=== PATIENT | male | born 1955 ===

== ENCOUNTER 2018-11-10 22:48 | Inpatient (IN) | payer MEDICARE, MEDICAID ==
[2018-11-10 22:49] VITALS: BMI 24.0
--- NOTE | 2018-11-10 23:07 | C.PDOC ---
History Of Present Illness 63 year old male presents to the ED c/o worsening SOB and chest pain for the past week. Patient goes to dialysis on Saturday, Saturday and Saturday. Patient did not went to dialysis today because he was feeling SOB. Patient denies fever, chills, nausea, vomit, diarrhea, headache, palpitations, weakness, numbness. Time Seen by Provider: 11/10/18 23:06 Chief Complaint (Nursing): Shortness Of Breath History Per: Patient History/Exam Limitations: no limitations Onset/Duration Of Symptoms: Days (week) Current Symptoms Are (Timing): Still Present Initiating Event: Upper Respiratory Illness Quality: "Pain" Associated Symptoms: Chest Pain Recent travel outside of the [place]: No Additional History Per: Patient Past Medical History Reviewed: Historical Data, Nursing Documentation, Vital Signs - Medical History PMH: Anemia, CHF, HTN, Hypercholesterolemia, End Stage Renal Disease, Chronic Kidney Disease, TIA (MAYBE) Surgical History: No Surg Hx - [facility] Procedures ASSISTANCE WITH RESPIRATORY VENTILATION, <24 HRS, CPAP (09/15/15) BYPASS LEFT RADIAL ARTERY TO LOWER ARM VEIN, OPEN APPROACH (09/15/15) INSERT INFUSION DEV IN R INT JUGULAR VEIN, PERC (09/15/15) PERFORMANCE OF URINARY FILTRATION, MULTIPLE (09/15/15) PERFORMANCE OF URINARY FILTRATION, SINGLE (12/19/15) REMOVAL OF INFUSION DEVICE FROM LOWER VEIN, PERC APPROACH (09/15/15) TRANSFUSE NONAUT RED BLOOD CELLS IN PERIPH VEIN, PERC (09/15/15) ULTRASONOGRAPHY OF RIGHT JUGULAR VEINS, GUIDANCE (09/15/15) Family History: States: No Known Family Hx - Social History Hx Alcohol Use: No - Immunization History Hx Influenza Vaccination: No Review Of Systems Constitutional: Negative for: Fever, Chills Eyes: Negative for: Vision Change Cardiovascular: Positive for: Chest Pain. Negative for: Palpitations Respiratory: Positive for: Shortness of Breath. Negative for: Cough Gastrointestinal: Negative for: Nausea, Vomiting, Abdominal Pain Skin: Negative for: Rash Neurological: Negative for: Weakness, Numbness, Headache Physical Exam - Physical Exam Appears: Non-toxic, In Acute Distress Skin: Warm, Dry Head: Normacephalic Eye(s): bilateral: Normal Inspection Oral Mucosa: Moist Throat: No Erythema, No Exudate Neck: Supple Chest: Symmetrical Cardiovascular: Rhythm Regular Respiratory: Decreased Breath Sounds, Rales (diffuse), No Rhonchi, No Wheezing Gastrointestinal/Abdominal: Bowel Sounds (active), Soft, No Tenderness, No Guarding, No Rebound Back: No CVA Tenderness Extremity: Pedal Edema (bilateral), Capillary Refill (< 2 seconds) Extremity: Right: Other (dialysis graft good thrill and bruit), Bilateral: Atraumatic, Normal Color And Temperature, Normal ROM Pulses: Left Dorsalis Pedis: Normal, Right Dorsalis Pedis: Normal Neurological/Psych: Oriented x3 Gait: Steady ED Course And Treatment - Laboratory Results Result Diagrams: 11/11/18 00:31 11/11/18 01:43 ECG: Interpreted By Me, Viewed By Me ECG Rhythm: Sinus Rhythm (88), Nonspecific Changes Pulse Ox Interpretation: Normal - Radiology CXR: Interpreted by Me, Viewed By Me CXR Interpretation: Yes: Infiltrates (rll), Cardiomegaly, Other (pulm edema) Progress Note: Plan: - ABG. - EKG. - Labs. - CXR. - Aspirin 325 mg PO. - Duoneb. - Lasix 60 mg IVP. - Zosyn IV. - Blood culture. - Influenza A B. spoke with dr hoffmann(nephrology) - pt will get emergent hd Critical Care Time - Critical Care Note Total Time (in mins): 30 Documented critical care: time excludes all time spent performing seperately billable procedures. Disposition Discussed With : Franky Rayo Comment: accepted the pt on his service and took over the care at 1:57 AM Doctor Will See Patient In The: ED Counseled Patient/Family Regarding: Studies Performed, Diagnosis - Disposition Disposition: HOSPITALIZED Disposition Time: 23:06 Condition: FAIR - Clinical Impression Clinical Impression: Respiratory distress, Chest pain, ESRD needing dialysis - Scribe Statement The provider has reviewed the documentation as recorded by the Scribe Jerome Goodson All medical record entries made by the Scribe were at my direction and personally dictated by me. I have reviewed the chart and agree that the record accurately reflects my personal performance of the history, physical exam, medical decision making, and the department course for this patient. I have also personally directed, reviewed, and agree with the discharge instructions and disposition. Decision To Admit - Pt Status Changed To: Hospital Disposition Of: Inpatient - Admit Certification Admit to Inpatient:: After my assessment, the patient will require hospitalization for at least two midnights. This is because of the severity of symptoms shown, intensity of services needed, and/or the medical risk in this patient being treated as an outpatient. - InPatient: Physician Admission Certification: I certify that this patient requires 2 or more midnights of care for the following reason:: After my assessment, the patient will require hospitalization for at least two midnights. This is because of the severity of symptoms shown, intensity of services needed, and/or the medical risk in this patient being treated as an outpatient. - . Bed Request Type: Telemetry Admitting Physician: Franky Rayo Patient Diagnosis: Respiratory distress, Chest pain, ESRD needing dialysis
[2018-11-10] MEDS ORDERED: Piperacillin/Tazobact 3.375 gm 100 ML IVPB STA (23:29)
[2018-11-10] MEDS: Albuterol-Ipratrop 3 mg / 0.5 (3 ml) UD IH SCH (23:50)
[2018-11-10 23:51] LABS: ABG ALLEN TEST POS; ARTERIAL BLOOD GAS O2 SAT 81.9 % (95-98); ARTERIAL BLOOD GAS PCO2 34 mm/Hg (35-45); ARTERIAL BLOOD GAS PH 7.51 (7.35-7.45); ARTERIAL BLOOD GAS PO2 47 mm/Hg (80-100); ARTERIAL BLOOD GAS TCO2 28.1 mmol/L (22-28)
[2018-11-10] MEDS ORDERED: Piperacillin/Tazobact 3.375 gm 100 ML IVPB ONE (23:51)
[2018-11-10] MEDS ORDERED: Albuterol-Ipratrop 3 mg / 0.5 (3 ml) UD ONE (23:58)
[2018-11-11 00:41] LABS: BASO % 0.8 % (0.0-2.0); EOS # 0.3 K/uL (0.0-0.7); EOS % 4.1 % (0.0-4.0); LYMPH # 0.9 K/uL (1.0-4.3); LYMPH % 14.1 % (20.0-40.0); MEAN CELL VOLUME 81.6 fL (80.0-94.0); MEAN CORPUSCULAR HEMOGLOBIN 26.6 pg (27.0-31.0); MEAN CORPUSCULAR HGB CONC 32.6 g/dL (33.0-37.0); MEAN PLATELET VOLUME 8.7 fL (7.2-11.7); MONO # 0.6 K/uL (0.0-0.8); MONO % 9.4 % (0.0-10.0); NEUT # 4.6 K/uL (1.8-7.0); NEUT % 71.6 % (50.0-75.0); NRBC % 0.2 % (0.0-2.0); RBC 3.75 Mil/uL (4.40-5.90); RED CELL DISTRIBUTION WIDTH 20.4 % (11.5-14.5); WHITE BLOOD COUNT 6.4 K/uL (4.8-10.8)
[2018-11-11 01:15] LABS: INR 1.2; PROTHROMBIN TIME 13.6 SECONDS (9.7-12.2)
[2018-11-11 02:17] LABS: ALBUMIN 3.8 g/dL (3.5-5.0); ALT/SGPT 23 U/L (21-72); AST/SGOT 18 U/L (17-59); BLOOD UREA NITROGEN 62 mg/dL (9-20); CALCIUM 8.2 mg/dl (8.6-10.4); GFR NON-AFRICAN AMERICAN 7
[2018-11-11] MEDS ORDERED: Calcium Gluconate 4.65 MEQ in Dextrose 5% In Water 100 ML IVPB STA (02:22)
--- NOTE | 2018-11-11 03:25 | CP.PCM.HP ---
<VillalobosPenelope - Last Filed: 11/11/18 06:22> History of Present Illness - History of Present Illness History of Present Illness: CC: shortness of breath Patient is a 63 year old male with pmhx of ESRD, CHF, HTN, HLD who presents to the ED today with complaints of progressively worsening SOB. Pt reports cough and SOB first began approximately 1 week ago, and was given antibiotics for a suspected PNA by PMD with no improvement in symptoms. Pt reports today the SOB was so severe, he missed his dialysis session and called EMS to bring him in for evaluation. Pt also reports epigastric pain x1 month for which his PMD recently prescribed an antacid with improvement in symptoms. Pt denies headache, dizziness, chest pain, nausea, vomiting. Pt reports he is compliant with medications and HD as ordered. pmhx: ESRD, CHF, HTN, HLD pshx: Left UE HD graft meds: ASA, norvasc, hydralazine, coreg, crestor, ranitidine, calcitriol, renvela allergies: NKDA Sochx: 25 pack year smoking, denies alcohol/drug use Present on Admission - Present on Admission Any Indicators Present on Admission: No Review of Systems - Cardiovascular Cardiovascular: absent: Chest Pain, Palpitations - Respiratory Respiratory: Cough, Dyspnea - Gastrointestinal Gastrointestinal: Abdominal Pain (epigastric). absent: Hematemesis, Hematochezia, Nausea, Vomiting - Integumentary Integumentary: absent: Pruritus Past Patient History - Infectious Disease Hx of Infectious Diseases: None - Past Medical History & Family History Past Medical History?: Yes - Past Social History Smoking Status: Heavy Smoker > 10 Cigarettes Daily - CARDIAC Hx Congestive Heart Failure: Yes Hx Hypercholesterolemia: Yes Hx Hypertension: Yes - NEUROLOGICAL Hx Transient Ischemic Attacks (TIA): Yes (MAYBE) - HEENT Hx HEENT Problems: Yes Hx Cataracts: Yes (S/P Rt cataract surgery) - RENAL Hx Chronic Kidney Disease: Yes - HEMATOLOGICAL/ONCOLOGICAL Hx Anemia: Yes - GENITOURINARY/GYNECOLOGICAL Hx Genitourinary Disorders: Yes - SURGICAL HISTORY Hx Surgeries: Yes Hx Arteriovenous Shunt: Yes (left arm / LEFT WRIST) Hx Cataract Extraction: Yes (RT. EYE) - ANESTHESIA Hx Anesthesia: Yes Hx Anesthesia Reactions: No Hx Malignant Hyperthermia: No Meds Allergies/Adverse Reactions: Allergies Allergy/AdvReac Type Severity Reaction Status Date / Time No Known Allergies Allergy Verified 11/10/18 23:07 Physical Exam - Constitutional Appears: Non-toxic, No Acute Distress - Head Exam Head Exam: ATRAUMATIC, NORMAL INSPECTION, NORMOCEPHALIC - Eye Exam Eye Exam: EOMI, Normal appearance - ENT Exam ENT Exam: Mucous Membranes Dry, Normal Exam Additional comments: currently on BiPAP - Respiratory Exam Respiratory Exam: Rales (RLL/LLL). absent: Accessory Muscle Use, Wheezes, NORMAL BREATHING PATTERN Additional comments: tachypneic - Cardiovascular Exam Cardiovascular Exam: Tachycardia, REGULAR RHYTHM, Systolic Murmur Additional comments: 3/6 holosystolic murmur - GI/Abdominal Exam GI & Abdominal Exam: Soft. absent: Distended, Tenderness - Extremities Exam Extremities exam: Positive for: normal inspection. Negative for: calf tenderness, pedal edema - Neurological Exam Neurological exam: Alert, Oriented x3 - Psychiatric Exam Psychiatric exam: Normal Affect, Normal Mood - Skin Skin Exam: Dry, Intact, Normal Color, Warm Results - Vital Signs Recent Vital Signs: Last Vital Signs Temp 97.8 F 11/10/18 23:15 Pulse 88 11/11/18 03:15 Resp 20 11/11/18 03:15 BP 155/70 H 11/11/18 03:15 Pulse Ox 100 11/11/18 03:15 - Labs Result Diagrams: 11/11/18 00:31 11/11/18 01:43 Labs: Laboratory Results - last 24 hr 11/10/18 11/10/18 11/10/18 23:08 23:42 23:43 WBC RBC Hgb Hct MCV MCH MCHC RDW Plt Count MPV Neut % (Auto) Lymph % (Auto) [place] % (Auto) Eos % (Auto) Baso % (Auto) Neut # (Auto) Lymph # (Auto) [place] # (Auto) Eos # (Auto) Baso # (Auto) PT INR APTT Puncture Site Rr pCO2 34 L pO2 47 L HCO3 28.0 ABG pH 7.51 H ABG Total CO2 28.1 H ABG O2 Saturation 81.9 L ABG Base Excess 4.3 H Good Test Pos ABG Potassium 5.1 Sodium 135.0 Chloride 100.0 Glucose 168 H Lactate 0.9 Liter Flow 5.0 Potassium Carbon Dioxide Anion Gap BUN Creatinine Est GFR ( Amer) Est GFR (Non-Af Amer) Random Glucose Calcium Total Bilirubin AST ALT Alkaline Phosphatase Troponin I < 0.0120 NT-Pro-B Natriuret Pep 94370 H Total Protein Albumin Globulin Albumin/Globulin Ratio Arterial Blood Potassium 5.1 Influenza Typ A,B (EIA) Negative for flu a/b 11/11/18 11/11/18 11/11/18 00:31 00:31 01:43 WBC 6.4 RBC 3.75 L Hgb 10.0 L D Hct 30.6 L MCV 81.6 D MCH 26.6 L MCHC 32.6 L RDW 20.4 H Plt Count 130 MPV 8.7 Neut % (Auto) 71.6 Lymph % (Auto) 14.1 L [place] % (Auto) 9.4 Eos % (Auto) 4.1 H Baso % (Auto) 0.8 Neut # (Auto) 4.6 Lymph # (Auto) 0.9 L [place] # (Auto) 0.6 Eos # (Auto) 0.3 Baso # (Auto) 0.0 PT 13.6 H INR 1.2 APTT 41 H Puncture Site pCO2 pO2 HCO3 ABG pH ABG Total CO2 ABG O2 Saturation ABG Base Excess Good Test ABG Potassium Sodium 133 Chloride 93 L Glucose Lactate Liter Flow Potassium 6.3 H* Carbon Dioxide 30 Anion Gap 17 BUN 62 H Creatinine 7.4 H* Est GFR ( Amer) 9 Est GFR (Non-Af Amer) 7 Random Glucose 128 H Calcium 8.2 L Total Bilirubin 0.7 AST 18 ALT 23 Alkaline Phosphatase 142 H Troponin I < 0.0120 NT-Pro-B Natriuret Pep Total Protein 7.7 Albumin 3.8 Globulin 3.9 Albumin/Globulin Ratio 1.0 Arterial Blood Potassium Influenza Typ A,B (EIA) Assessment & Plan - Assessment and Plan (Free Text) Assessment: 63 year old male with pmhx of ESRD, CHF, HTN, HLD admitted for evaluation and treatment of pulmonary edema and suspected PNA Plan: Pulmonary Edema; 2/2 ESRD vs CHF vs PNA -CXR: awaiting report; appears congested with RLL consolidation and LLL pleural effusion -f/u repeat CXR s/p dialysis -IV abx, doxycycline and zosyn -f/u procalcitonin -pBNP 33,300 on admission; fluid overload -f/u cardiac echo, /6 holosystolic murmur -O2 89% on admission -given Lasix 60mg IVP in ED -currently on BiPAP, spO2 94% on FiO2 of 50% -wean to NC s/p HD as tolerated ESRD -HD this morning -continue home medications -Nephrology consult, Dr. West Hyperkalemia -K 6.3 on admission -given calcium gluconate in ED -EKG showing no acute changes -f/u repeat K s/p dialysis -monitor and treat accordingly HTN -BP WNL and stable -hold home antihypertensives, consider restarting s/p HD pending BP reads HLD -continue home crestor 10mg Ppx -VTE ppx, heparin q12 -GI ppx, protonix -renal diet Discussed with Dr. Rayo -Peneloep Villalobos, PGY-1 <Franky Rayo P - Last Filed: 11/11/18 06:36> Results - Vital Signs Recent Vital Signs: Last Vital Signs Temp 97.8 F 11/10/18 23:15 Pulse 99 H 11/11/18 04:35 Resp 20 11/11/18 03:15 BP 155/70 H 11/11/18 03:15 Pulse Ox 100 11/11/18 03:15 - Labs Result Diagrams: 11/11/18 00:31 11/11/18 01:43 Labs: Laboratory Results - last 24 hr 11/10/18 11/10/18 11/10/18 23:08 23:42 23:43 WBC RBC Hgb Hct MCV MCH MCHC RDW Plt Count MPV Neut % (Auto) Lymph % (Auto) [place] % (Auto) Eos % (Auto) Baso % (Auto) Neut # (Auto) Lymph # (Auto) [place] # (Auto) Eos # (Auto) Baso # (Auto) PT INR APTT Puncture Site Rr pCO2 34 L pO2 47 L HCO3 28.0 ABG pH 7.51 H ABG Total CO2 28.1 H ABG O2 Saturation 81.9 L ABG Base Excess 4.3 H Good Test Pos ABG Potassium 5.1 Glucose 168 H Lactate 0.9 Liter Flow 5.0 Sodium Cancelled 135.0 Potassium Cancelled Chloride Cancelled 100.0 Carbon Dioxide Cancelled Anion Gap Cancelled BUN Cancelled Creatinine Est GFR ( Amer) Cancelled Est GFR (Non-Af Amer) Cancelled Random Glucose Cancelled Calcium Cancelled Total Bilirubin Cancelled AST Cancelled ALT Cancelled Alkaline Phosphatase Cancelled Troponin I Cancelled NT-Pro-B Natriuret Pep 85295 H Total Protein Cancelled Albumin Cancelled Globulin Cancelled Albumin/Globulin Ratio Cancelled Arterial Blood Potassium 5.1 Influenza Typ A,B (EIA) Negative for flu a/b 11/11/18 11/11/18 11/11/18 00:31 00:31 01:43 WBC 6.4 RBC 3.75 L Hgb 10.0 L D Hct 30.6 L MCV 81.6 D MCH 26.6 L MCHC 32.6 L RDW 20.4 H Plt Count 130 MPV 8.7 Neut % (Auto) 71.6 Lymph % (Auto) 14.1 L [place] % (Auto) 9.4 Eos % (Auto) 4.1 H Baso % (Auto) 0.8 Neut # (Auto) 4.6 Lymph # (Auto) 0.9 L [place] # (Auto) 0.6 Eos # (Auto) 0.3 Baso # (Auto) 0.0 PT 13.6 H INR 1.2 APTT 41 H Puncture Site pCO2 pO2 HCO3 ABG pH ABG Total CO2 ABG O2 Saturation ABG Base Excess Good Test ABG Potassium Glucose Lactate Liter Flow Sodium 133 Potassium 6.3 H* Chloride 93 L Carbon Dioxide 30 Anion Gap 17 BUN 62 H Creatinine 7.4 H* Est GFR ( Amer) 9 Est GFR (Non-Af Amer) 7 Random Glucose 128 H Calcium 8.2 L Total Bilirubin 0.7 AST 18 ALT 23 Alkaline Phosphatase 142 H Troponin I < 0.0120 NT-Pro-B Natriuret Pep Total Protein 7.7 Albumin 3.8 Globulin 3.9 Albumin/Globulin Ratio 1.0 Arterial Blood Potassium Influenza Typ A,B (EIA) Attending/Attestation - Attestation I have personally seen and examined this patient.: Yes I have fully participated in the care of the patient.: Yes I have reviewed all pertinent clinical information: Yes Notes (Text): 11/11/18 06:33 * SOB * B/l infiltrates ? left effusion, euvolemic rest of the body * Mild hyperkalemia * Systolic precodial murmur more on left side suspected mitral regurg * ESRD on hd, h/o dm many yrs back, now only diet control * H/o HTN Plan * HD * Echo * CXR, +/- ct, ?CTA post hd * procacitonin * Rocephin + doxycycline emperic * GI/DVT prophylaxis * See orders for detail.
[2018-11-11] MEDS ORDERED: Piperacill/Tazo 2.25gm in Dex 2.25 GM/50 ML BAG IVPB SCH (06:00)
[2018-11-11] MEDS ORDERED: Piperacillin/Tazobact 3.375 gm 100 ML IVPB ONE (06:23)
[2018-11-11 10:20] LABS: BASO # 0.1 K/uL (0.0-0.2); BASO % 1.7 % (0.0-2.0); EOS # 0.4 K/uL (0.0-0.7); EOS % 5.2 % (0.0-4.0); HEMOGLOBIN 9.9 g/dL (12.0-18.0); LYMPH # 0.9 K/uL (1.0-4.3); LYMPH % 13.4 % (20.0-40.0); MEAN CELL VOLUME 81.1 fL (80.0-94.0); MEAN CORPUSCULAR HEMOGLOBIN 26.6 pg (27.0-31.0); MEAN CORPUSCULAR HGB CONC 32.8 g/dL (33.0-37.0); MEAN PLATELET VOLUME 7.4 fL (7.2-11.7); MONO # 0.6 K/uL (0.0-0.8); MONO % 8.9 % (0.0-10.0); NEUT # 4.8 K/uL (1.8-7.0); NEUT % 70.8 % (50.0-75.0); RBC 3.74 Mil/uL (4.40-5.90); RED CELL DISTRIBUTION WIDTH 19.5 % (11.5-14.5); WHITE BLOOD COUNT 6.8 K/uL (4.8-10.8)
[2018-11-11 10:40] LABS: CALCIUM 8.7 mg/dl (8.6-10.4)
--- NOTE | 2018-11-11 10:59 | RAD ---
Chest x-ray single frontal view HISTORY: Shortness of breath. COMPARISON: 01/02/2016 Findings: Moderate to large loculated left and small right pleural effusion. Prominent consolidative opacification in the mid to lower lung zone as well as the right lung base. Cardiomegaly. Left axillary stent in place. Degenerative changes in the spine and shoulders. Impression: Moderate to large loculated left and small right pleural effusion. Prominent consolidative opacification in the mid to lower lung zone as well as the right lung base. Cardiomegaly. Left axillary stent in place.
--- NOTE | 2018-11-11 12:07 | CARD ---
APPROVED REPORT Date of service: 11/10/2018 EKG Measurement Heart [id number] CT [id number] <Conclusion> Normal sinus rhythm T wave abnormality, consider lateral ischemia Abnormal ECG
--- NOTE | 2018-11-11 12:54 | CP.PCM.PN ---
Subjective - Date & Time of Evaluation Date of Evaluation: 11/11/18 Time of Evaluation: 13:29 - Subjective Subjective: PGY-[address] Mclean Patient seen and examined in the ED this morning while receiving STAT HD. He appeared to be breathing comfortably on BiPAP. He endorsed to me that his breathing was much better with BiPAP in place. ROS negative for chest pain, palpitations, lightheadedness, dizziness, fever, chills. Pt remains short of breath with rales on exam when re-examined on rounds s/p HD. May require another HD session today. Objective - Vital Signs/Intake and Output Vital Signs (last 24 hours): Temp Pulse Resp BP Pulse Ox 97.5 F L 88 15 168/68 H 98 11/11/18 10:00 11/11/18 10:00 11/11/18 10:00 11/11/18 11:55 11/11/18 10:00 - Medications Medications: Current Medications Amlodipine Besylate (Norvasc) 5 mg PO DAILY [facility] [place] Last Admin: 11/11/18 11:56 Dose: 5 mg Aspirin (Ecotrin) 81 mg PO DAILY [facility] [place] Last Admin: 11/11/18 12:11 Dose: Not Given Calcitriol (Rocaltrol) 0.75 mcg PO DAILY [facility] [place] Last Admin: 11/11/18 12:10 Dose: 0.75 mcg Carvedilol (Coreg) 25 mg PO BID [facility] [place] Last Admin: 11/11/18 11:55 Dose: 25 mg Heparin Sodium (Porcine) (Heparin) 5,000 units SC Q12 [facility] Last Admin: 11/11/18 11:58 Dose: 5,000 units Hydralazine HCl (Apresoline) 25 mg PO BID [facility] [place] Last Admin: 11/11/18 11:54 Dose: 25 mg Doxycycline Hyclate 100 mg/ (Sodium Chloride) 100 mls @ 100 mls/hr IVPB Q12H [facility] [place]; Protocol Last Admin: 11/11/18 06:50 Dose: 100 mls/hr Ceftriaxone Sodium 1 gm/ (Sodium Chloride) 100 mls @ 100 mls/hr IVPB DAILY [facility] [place]; Protocol Last Admin: 11/11/18 11:56 Dose: 100 mls/hr Rosuvastatin Calcium (Crestor) 10 mg PO HS [facility] [place] Sevelamer Carbonate (Renvela) 800 mg PO TID [facility] [place] Last Admin: 11/11/18 12:10 Dose: 800 mg - Labs Labs: 11/11/18 10:14 11/11/18 10:14 PT 13.6 SECONDS (9.7-12.2) H 11/11/18 00:31 INR 1.2 11/11/18 00:31 APTT 41 SECONDS (21-34) H 11/11/18 00:31 - Constitutional Appears: Non-toxic, No Acute Distress - Head Exam Head Exam: ATRAUMATIC, NORMOCEPHALIC - Eye Exam Eye Exam: EOMI, Normal appearance - ENT Exam ENT Exam: Mucous Membranes Moist - Respiratory Exam Respiratory Exam: Rales, Wheezes. absent: Accessory Muscle Use, Respiratory Distress Additional comments: On Bipap - Cardiovascular Exam Cardiovascular Exam: Tachycardia, REGULAR RHYTHM, +S1, +S2 - GI/Abdominal Exam GI & Abdominal Exam: Soft, Normal Bowel Sounds. absent: Tenderness - Extremities Exam Extremities Exam: absent: Pedal Edema, Tenderness Additional comments: HD via LUE fistula - Neurological Exam Neurological Exam: Alert, Awake, Oriented x3 - Psychiatric Exam Psychiatric exam: Normal Affect, Normal Mood - Skin Skin Exam: Dry, Intact Assessment and Plan - Assessment and Plan (Free Text) Assessment: 63 year old male with pmhx of ESRD, CHF, HTN, HLD admitted for evaluation and treatment of pulmonary edema and suspected PNA Plan: Pulmonary Edema; 2/2 ESRD vs CHF vs PNA -CXR: awaiting report; appears congested with RLL consolidation and LLL pleural effusion -f/u repeat CXR s/p dialysis -IV abx - Doxy and Zosyn --> Rochephin and Doxy -Abx --Rocephin 1 gm IVPB daily --Doxycycline 100 mg IVPB Q12 -f/u procalcitonin -pBNP 33,300 on admission; fluid overload -f/u cardiac echo, 3/6 holosystolic murmur -O2 89% on admission -given Lasix 60mg IVP in ED -currently on BiPAP, spO2 94% on FiO2 of 50% -wean to NC s/p HD as tolerated -Duonebs INH Q6 prn -CT chest w w/o contrast: f/u -Pulm consult - Dr. Walker - f/u recs -Cardio Consult - Dr. Ha - f/u recs ESRD -HD this morning. May go for 2nd round HD today as continues to have Rales on exam following HD. -continue home medications -Nephrology consult, Dr. Espinosa -HD MW Hyperkalemia -K 6.3 on admission, normalized s/p HD. -given calcium gluconate in ED -EKG with borderline peaked T waves in lateral leads. Repeating EKG. HTN -HD MWF -BP stable -hold home antihypertensives, consider restarting s/p HD pending BP reads HLD -continue home crestor 10mg Ppx -VTE ppx, heparin q12 -GI ppx, protonix -renal diet Discussed with Dr. Vinay Hopkins, PGY-1
--- NOTE | 2018-11-11 13:22 | CP.PCM.CON ---
History of Present Illness - History of Present Illness History of Present Illness: Patient is a 63 year old male with pmhx of ESRD, CHF, HTN, HLD who presents to the ED today with complaints of progressively worsening SOB. Pt reports cough and SOB first began approximately 1 week ago, and was given antibiotics for a suspected PNA by PMD with no improvement in symptoms. Pt reports today the SOB was so severe, he missed his dialysis session and called EMS to bring him in for evaluation. Pt also reports epigastric pain x1 month for which his PMD recently prescribed an antacid with improvement in symptoms. Pt denies headache, dizziness, chest pain, nausea, vomiting. Pt reports he is compliant with medications and HD as ordered. emergently dialyzed last night in Ed pmhx: ESRD, CHF, HTN, HLD pshx: Left UE HD graft meds: ASA, norvasc, hydralazine, coreg, crestor, ranitidine, calcitriol, renvela allergies: NKDA Sochx: 25 pack year smoking, denies alcohol/drug use Review of Systems - Review of Systems All systems: reviewed and no additional remarkable complaints except (as per HPI) Past Patient History - Infectious Disease Hx of Infectious Diseases: None - Past Medical History & Family History Past Medical History?: Yes - Past Social History Smoking Status: Light Smoker < 10 Cigarettes Daily - CARDIAC Hx Cardiac Disorders: Yes Hx Congestive Heart Failure: Yes Hx Hypercholesterolemia: Yes Hx Hypertension: Yes - PULMONARY Hx Respiratory Disorders: No - NEUROLOGICAL Hx Neurological Disorder: Yes Hx Transient Ischemic Attacks (TIA): Yes (MAYBE) - HEENT Hx HEENT Problems: Yes Hx Cataracts: Yes (S/P Rt cataract surgery) - RENAL Hx Chronic Kidney Disease: Yes Hx Dialysis: Yes Type of Dialysis Access: 11/11/18 - ENDOCRINE/METABOLIC Hx Endocrine Disorders: No - HEMATOLOGICAL/ONCOLOGICAL Hx Blood Disorders: Yes Hx Anemia: Yes - INTEGUMENTARY Hx Dermatological Problems: No - MUSCULOSKELETAL/RHEUMATOLOGICAL Hx Musculoskeletal Disorders: No Hx Falls: No - GASTROINTESTINAL Hx Gastrointestinal Disorders: No - GENITOURINARY/GYNECOLOGICAL Hx Genitourinary Disorders: No - PSYCHIATRIC Hx Psychophysiologic Disorder: No Hx Substance Use: No - SURGICAL HISTORY Hx Surgeries: Yes Hx Arteriovenous Shunt: Yes (left arm / LEFT WRIST) Hx Cataract Extraction: Yes (RT. EYE) - ANESTHESIA Hx Anesthesia: Yes Hx Anesthesia Reactions: No Hx Malignant Hyperthermia: No Meds Allergies/Adverse Reactions: Allergies Allergy/AdvReac Type Severity Reaction Status Date / Time No Known Allergies Allergy Verified 11/10/18 23:07 - Medications Medications: Current Medications Amlodipine Besylate (Norvasc) 5 mg PO DAILY [facility] Last Admin: 11/11/18 11:56 Dose: 5 mg Aspirin (Ecotrin) 81 mg PO DAILY [facility] Last Admin: 11/11/18 12:11 Dose: Not Given Calcitriol (Rocaltrol) 0.75 mcg PO DAILY [facility] Last Admin: 11/11/18 12:10 Dose: 0.75 mcg Carvedilol (Coreg) 25 mg PO BID [facility] Last Admin: 11/11/18 11:55 Dose: 25 mg Heparin Sodium (Porcine) (Heparin) 5,000 units SC Q12 [facility] Last Admin: 11/11/18 11:58 Dose: 5,000 units Hydralazine HCl (Apresoline) 25 mg PO BID [facility] Last Admin: 11/11/18 11:54 Dose: 25 mg Doxycycline Hyclate 100 mg/ (Sodium Chloride) 100 mls @ 100 mls/hr IVPB Q12H [facility]; Protocol Last Admin: 11/11/18 06:50 Dose: 100 mls/hr Ceftriaxone Sodium 1 gm/ (Sodium Chloride) 100 mls @ 100 mls/hr IVPB DAILY [facility]; Protocol Last Admin: 11/11/18 11:56 Dose: 100 mls/hr Rosuvastatin Calcium (Crestor) 10 mg PO HS [facility] Sevelamer Carbonate (Renvela) 800 mg PO TID [facility] Last Admin: 11/11/18 12:10 Dose: 800 mg Physical Exam - Constitutional Appears: Non-toxic, No Acute Distress, Chronically Ill - Head Exam Head Exam: NORMAL INSPECTION, NORMOCEPHALIC - Eye Exam Eye Exam: Normal appearance, PERRL - ENT Exam ENT Exam: Mucous Membranes Moist, Normal Exam - Neck Exam Neck exam: Positive for: Full Rom, Normal Inspection - Respiratory Exam Respiratory Exam: Decreased Breath Sounds, NORMAL BREATHING PATTERN Additional comments: bibasilar crackles - Cardiovascular Exam Cardiovascular Exam: REGULAR RHYTHM, RRR - GI/Abdominal Exam GI & Abdominal Exam: Distended, Normal Bowel Sounds, Soft - Extremities Exam Extremities exam: Positive for: full ROM, normal inspection - Psychiatric Exam Psychiatric exam: Normal Affect, Normal Mood - Skin Skin Exam: Intact, Warm Results - Vital Signs Recent Vital Signs: Last Vital Signs Temp 97.5 F L 11/11/18 10:00 Pulse 88 11/11/18 10:00 Resp 15 11/11/18 10:00 BP 168/68 H 11/11/18 11:55 Pulse Ox 98 11/11/18 10:00 - Labs Result Diagrams: 11/11/18 10:14 11/11/18 10:14 Labs: Laboratory Results - last 24 hr 11/10/18 11/10/18 11/10/18 23:08 23:42 23:43 WBC RBC Hgb Hct MCV MCH MCHC RDW Plt Count MPV Neut % (Auto) Lymph % (Auto) [place] % (Auto) Eos % (Auto) Baso % (Auto) Neut # (Auto) Lymph # (Auto) [place] # (Auto) Eos # (Auto) Baso # (Auto) PT INR APTT Puncture Site Rr pCO2 34 L pO2 47 L HCO3 28.0 ABG pH 7.51 H ABG Total CO2 28.1 H ABG O2 Saturation 81.9 L ABG Base Excess 4.3 H Good Test Pos ABG Potassium 5.1 Glucose 168 H Lactate 0.9 Liter Flow 5.0 Sodium Cancelled 135.0 Potassium Cancelled Chloride Cancelled 100.0 Carbon Dioxide Cancelled Anion Gap Cancelled BUN Cancelled Creatinine Est GFR ( Amer) Cancelled Est GFR (Non-Af Amer) Cancelled Random Glucose Cancelled Calcium Cancelled Total Bilirubin Cancelled AST Cancelled ALT Cancelled Alkaline Phosphatase Cancelled Troponin I Cancelled NT-Pro-B Natriuret Pep 84347 H Total Protein Cancelled Albumin Cancelled Globulin Cancelled Albumin/Globulin Ratio Cancelled Procalcitonin Arterial Blood Potassium 5.1 Influenza Typ A,B (EIA) Negative for flu a/b 11/11/18 11/11/18 11/11/18 00:31 00:31 01:43 WBC 6.4 RBC 3.75 L Hgb 10.0 L D Hct 30.6 L MCV 81.6 D MCH 26.6 L MCHC 32.6 L RDW 20.4 H Plt Count 130 MPV 8.7 Neut % (Auto) 71.6 Lymph % (Auto) 14.1 L [place] % (Auto) 9.4 Eos % (Auto) 4.1 H Baso % (Auto) 0.8 Neut # (Auto) 4.6 Lymph # (Auto) 0.9 L [place] # (Auto) 0.6 Eos # (Auto) 0.3 Baso # (Auto) 0.0 PT 13.6 H INR 1.2 APTT 41 H Puncture Site pCO2 pO2 HCO3 ABG pH ABG Total CO2 ABG O2 Saturation ABG Base Excess Good Test ABG Potassium Glucose Lactate Liter Flow Sodium 133 Potassium 6.3 H* Chloride 93 L Carbon Dioxide 30 Anion Gap 17 BUN 62 H Creatinine 7.4 H* Est GFR ( Amer) 9 Est GFR (Non-Af Amer) 7 Random Glucose 128 H Calcium 8.2 L Total Bilirubin 0.7 AST 18 ALT 23 Alkaline Phosphatase 142 H Troponin I < 0.0120 NT-Pro-B Natriuret Pep Total Protein 7.7 Albumin 3.8 Globulin 3.9 Albumin/Globulin Ratio 1.0 Procalcitonin Arterial Blood Potassium Influenza Typ A,B (EIA) 11/11/18 11/11/18 11/11/18 10:14 10:14 10:14 WBC 6.8 RBC 3.74 L Hgb 9.9 L Hct 30.3 L MCV 81.1 MCH 26.6 L MCHC 32.8 L RDW 19.5 H Plt Count 137 MPV 7.4 Neut % (Auto) 70.8 Lymph % (Auto) 13.4 L [place] % (Auto) 8.9 Eos % (Auto) 5.2 H Baso % (Auto) 1.7 Neut # (Auto) 4.8 Lymph # (Auto) 0.9 L [place] # (Auto) 0.6 Eos # (Auto) 0.4 Baso # (Auto) 0.1 PT INR APTT Puncture Site pCO2 pO2 HCO3 ABG pH ABG Total CO2 ABG O2 Saturation ABG Base Excess Good Test ABG Potassium Glucose Lactate Liter Flow Sodium 136 Potassium 3.7 Chloride 97 L Carbon Dioxide 32 H Anion Gap 12 BUN 23 H Creatinine 3.3 H Est GFR ( Amer) 23 Est GFR (Non-Af Amer) 19 Random Glucose 91 D Calcium 8.7 Total Bilirubin AST ALT Alkaline Phosphatase Troponin I NT-Pro-B Natriuret Pep Total Protein Albumin Globulin Albumin/Globulin Ratio Procalcitonin 0.37 Arterial Blood Potassium Influenza Typ A,B (EIA) Assessment & Plan - Assessment and Plan (Free Text) Assessment: esrd fluid overload anemia htn pneumonia w/ loculated lt effusion plan: maintain hd, next treatment tomorrow and mwf, aggressive uf as tolerated antibiotics, cardiac evaluation fluid restriction advised
--- NOTE | 2018-11-11 13:41 | RAD ---
Chest x-ray single frontal view History: Dialysis. Comparison: 11/10/2018 Findings: Left axillary stent in place. Moderate loculated left pleural effusion. Dense consolidative opacification in mid to lower lung zones bilaterally. Moderate venous congestion. Cardiomegaly. Degenerative changes in the spine and shoulders. Biapical pleural thickening with upper lobe granulomatous changes. Impression: Left axillary stent in place. Moderate loculated left pleural effusion. Dense consolidative opacification in mid to lower lung zones bilaterally. Moderate venous congestion. Cardiomegaly. Degenerative changes in the spine and shoulders. Biapical pleural thickening with upper lobe granulomatous changes.
[2018-11-11] MEDS ORDERED: Albuterol-Ipratrop 3 mg / 0.5 (3 ml) UD INH STA (15:09)
--- NOTE | 2018-11-11 18:03 | CT ---
Date of service: 11/11/2018 PROCEDURE: CT Chest without contrast HISTORY: Effusion versus pneumonia. COMPARISON: Comparison made with chest radiograph dated 11/11/2018 at 10:27 a.m.. TECHNIQUE: Contiguous axial images were obtained through the chest without intravenous contrast enhancement. Sagittal and coronal reconstructions were performed. Radiation dose: Total exam DLP = 508.99 mGy-cm. This CT exam was performed using one or more of the following dose reduction techniques: Automated exposure control, adjustment of the mA and/or kV according to patient size, and/or use of iterative reconstruction technique. FINDINGS: LUNGS: There are moderate-sized bilateral effusions and bibasilar atelectasis left greater than right.. Diffuse ground-glass opacities seen predominately in the lower lung zones with present with septal thickening. There also more discrete scattered opacities in the upper lobes as well. Findings collectively are consistent with pulmonary edema/CHF however superimposed pneumonia cannot be completely excluded. MEDIASTINUM: Heart is enlarged. There is a small to medium-sized pericardial effusion. Ascending thoracic aorta measures approximately 3.24 cm. Descending thoracic aorta measures approximately 2.4 cm. Mild aortic atherosclerotic calcification.. Pulmonary trunk is dilated measuring approximately 3.6 cm. Rule out underlying pulmonary arterial hypertension. There are multiple small-enlarged mediastinal lymph nodes present, 1 of the largest in the right paratracheal region measuring approximately 2.1 cm. Another adjacent lymph node in the left paratracheal region measures approximately 15 mm. Subcarinal adenopathy and/or mass measuring approximately 2.9 cm. Evaluation for hilar adenopathy is somewhat limited due to the lack of circulating intravenous contrast material as well as bilateral effusions and bilateral lower lobe atelectatic changes left greater than right. Trachea is midline and patent with no large central endoluminal lesions. Tiny hiatal hernia. PLEURA: As above. No pneumothorax. BONES: Multilevel degenerative spondylosis of the thoracic and upper lumbar spine. UPPER ABDOMEN: Grossly unremarkable. OTHER FINDINGS: Moderate changes of bilateral gynecomastia. IMPRESSION: Cardiomegaly with small to medium-sized pericardial effusion. There are bilateral effusions and bibasilar atelectasis left greater than right. Hazy ground-glass opacity seen in the lower lobes with more discrete nodular opacity scattered throughout the upper lobes. Septal thickening. Collectively the findings are consistent with pulmonary edema/CHF however the possibility of superimposed pneumonia less likely though not completely excluded
--- NOTE | 2018-11-11 19:49 | CARD ---
APPROVED REPORT Date of service: 11/11/2018 EXAM: Two-dimensional and M-mode echocardiogram with Doppler and color Doppler. INDICATION Chest pressure Murmur Syncope Congestive Heart Failure RISK FACTORS Hypertension Diabetes 2D DIMENSIONS IVSd1.2 (0.7-1.1cm)LVDd4.7 (3.9-5.9cm) LVOT Diameter2.2 (1.8-2.4cm)PWd1.2 (0.7-1.1cm) LA Ywvazj68 (18-58mL)LVDs2.9 (2.5-4.0cm) FS (%) 38.8 %LVEF (%)69.2 (>50%) LVEF (Giron's)65 % M-Mode DIMENSIONS Left Atrium (MM)4.16 (2.5-4.0cm)IVSd1.25 (0.7-1.1cm) Aortic Root3.41 (2.2-3.7cm)LVDd5.32 (4.0-5.6cm) Aortic Cusp Exc.1.03 (1.5-2.0cm)PWd1.01 (0.7-1.1cm) FS (%) 43 %LVDs3.02 (2.0-3.8cm) LVEF (%)74 (>50%) Aortic Valve AoV Peak Cvldrnye707.6cm/sAoV VTI64.7cmAO Peak GR.38mmHg LVOT Peak Nucpmxhy007.2cm/sLVOT VTI23.70cmAO Mean GR.22mmHg ULISSES (VMAX)1.91xe0EGH (VTI)1.40cm2 Mitral Valve MV E Lbwrwaml734.6cm/sMV A Oinrzwjk606.5cm/sE/A ratio1.2 TDI Lateral E' Peak V7.64cm/sMedial E' Peak V8.29cm/sE/Lateral E'20.5 E/Medial E'18.9 Tricuspid Valve TR Peak Paxzgcqf444hw/sTR Peak Gr.19xzQnUISM25soUw LEFT VENTRICLE The left ventricle is normal size. There is mild concentric left ventricular hypertrophy. The Ejection Fraction is 65-70. There is normal LV segmental wall motion. The left atrial pressure is mildly elevated. RIGHT VENTRICLE The right ventricle is normal size. The right ventricular systolic function is normal. ATRIA The left atrium is mildly dilated. The right atrium size is normal. The interatrial septum is intact with no evidence for an atrial septal defect. AORTIC VALVE The aortic valve is tri-cuspid. The aortic valve is moderately calcified. No aortic regurgitation is present. There is mild valvular aortic stenosis. Calculated aortic valve area is 38 cm2 with maximum pressure gradient of 21 mmHg and mean pressure gradient of 1.4 mmHg. MITRAL VALVE The mitral valve is normal in structure. Mitral regurgitation is mild. TRICUSPID VALVE The tricuspid valve is normal in structure. There is mild to moderate tricuspid regurgitation. Right ventricular systolic pressure is estimated at 52 mmHg. There is moderate pulmonary hypertension. PULMONIC VALVE The pulmonary valve is normal in structure. GREAT VESSELS The aortic root is normal size. The aortic root displays mild sclerocalcific changes of the aortic root. ivc is mildly dilated. PERICARDIAL EFFUSION small posterior pericardial effusion noted,also small one behind ra.no tamponade. <Conclusion> The left ventricle is normal size. The Ejection Fraction is 65-70%. The left atrial pressure is mildly elevated. There is mild concentric left ventricular hypertrophy. The left atrium is mildly dilated. The aortic valve is tri-cuspid. The aortic valve is moderately calcified. There is mild valvular aortic stenosis. Calculated aortic valve area is 38 cm2 with maximum pressure gradient of 21 mmHg and mean pressure gradient of 1.4 mmHg. Mitral regurgitation is mild. There is mild to moderate tricuspid regurgitation. Right ventricular systolic pressure is estimated at 52 mmHg. There is moderate pulmonary hypertension. The aortic root is normal size. The aortic root displays mild sclerocalcific changes of the aortic root. ivc is mildly dilated. small posterior pericardial effusion noted,also small one behind ra.no tamponade.
[2018-11-11] MEDS: Albuterol-Ipratrop 3 mg / 0.5 (3 ml) UD INH PRN (20:53)
[2018-11-12] MEDS: Albuterol-Ipratrop 3 mg / 0.5 (3 ml) UD INH PRN ×2 (00:55→07:50)
[2018-11-12] MEDS ORDERED: Labetalol 5mg/ml (4ml) IVP STA (09:28)
--- NOTE | 2018-11-12 13:13 | CP.PCM.PN ---
Subjective - Date & Time of Evaluation Date of Evaluation: 11/12/18 Time of Evaluation: 13:10 - Subjective Subjective: seen on dialysis this AM UF goal 3000ml much less dyspneic now no other complaint Objective - Vital Signs/Intake and Output Vital Signs (last 24 hours): Temp Pulse Resp BP Pulse Ox 98.1 F 102 H 26 H 189/99 H 93 L 11/12/18 09:15 11/12/18 09:15 11/12/18 09:15 11/12/18 11:45 11/12/18 09:15 - Medications Medications: Current Medications Albuterol/Ipratropium (Duoneb 3 Mg/0.5 Mg (3 Ml) Ud) 3 ml INH RQ6 PRN PRN Reason: Shortness of Breath Last Admin: 11/12/18 07:50 Dose: 3 ml Amlodipine Besylate (Norvasc) 5 mg PO DAILY [facility] Last Admin: 11/11/18 11:56 Dose: 5 mg Aspirin (Ecotrin) 81 mg PO DAILY [facility] Last Admin: 11/11/18 12:11 Dose: Not Given Calcitriol (Rocaltrol) 0.75 mcg PO DAILY [facility] Last Admin: 11/11/18 12:10 Dose: 0.75 mcg Carvedilol (Coreg) 25 mg PO BID [facility] Last Admin: 11/12/18 11:25 Dose: 25 mg Heparin Sodium (Porcine) (Heparin) 5,000 units SC Q12 [facility] Last Admin: 11/11/18 21:49 Dose: 5,000 units Hydralazine HCl (Apresoline) 25 mg PO BID [facility] Last Admin: 11/12/18 11:24 Dose: 25 mg Doxycycline Hyclate 100 mg/ (Sodium Chloride) 100 mls @ 100 mls/hr IVPB Q12H [facility]; Protocol Last Admin: 11/12/18 05:13 Dose: 100 mls/hr Ceftriaxone Sodium 1 gm/ (Sodium Chloride) 100 mls @ 100 mls/hr IVPB DAILY [facility]; Protocol Last Admin: 11/11/18 11:56 Dose: 100 mls/hr Rosuvastatin Calcium (Crestor) 10 mg PO HS [facility] Last Admin: 11/11/18 21:49 Dose: 10 mg Sevelamer Carbonate (Renvela) 800 mg PO TIDCC [facility] Last Admin: 11/12/18 08:15 Dose: 800 mg - Labs Labs: 11/11/18 10:14 11/11/18 10:14 PT 13.6 SECONDS (9.7-12.2) H 11/11/18 00:31 INR 1.2 11/11/18 00:31 APTT 41 SECONDS (21-34) H 11/11/18 00:31 - Constitutional Appears: No Acute Distress, Chronically Ill - Head Exam Head Exam: ATRAUMATIC, NORMAL INSPECTION - Eye Exam Eye Exam: EOMI, Normal appearance - Neck Exam Neck Exam: Normal Inspection. absent: Tenderness - Respiratory Exam Respiratory Exam: Rhonchi, NORMAL BREATHING PATTERN - Cardiovascular Exam Cardiovascular Exam: REGULAR RHYTHM, +S1 - GI/Abdominal Exam GI & Abdominal Exam: Soft. absent: Tenderness - Extremities Exam Extremities Exam: Normal Inspection. 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
[2018-11-12 13:14] LABS: BASO # 0.1 K/uL (0.0-0.2); BASO % 0.8 % (0.0-2.0); EOS % 0.4 % (0.0-4.0); HEMOGLOBIN 10.1 g/dL (12.0-18.0); LYMPH % 11.1 % (20.0-40.0); MEAN CELL VOLUME 81.7 fL (80.0-94.0); MEAN CORPUSCULAR HEMOGLOBIN 26.6 pg (27.0-31.0); MEAN CORPUSCULAR HGB CONC 32.6 g/dL (33.0-37.0); MEAN PLATELET VOLUME 8.3 fL (7.2-11.7); MONO # 0.9 K/uL (0.0-0.8); MONO % 10.3 % (0.0-10.0); NEUT % 77.4 % (50.0-75.0); NRBC % 0.1 % (0.0-2.0); RBC 3.79 Mil/uL (4.40-5.90)
--- NOTE | 2018-11-12 13:24 | CP.PCM.PN ---
Subjective - Date & Time of Evaluation Date of Evaluation: 11/12/18 Time of Evaluation: 13:26 - Subjective Subjective: PGY-[address] Mclean Patient seen and examined at bedside. He did appear to be in mild respiratory distress this morning. Patient was not wearing his BiPap on presentation Objective - Vital Signs/Intake and Output Vital Signs (last 24 hours): Temp Pulse Resp BP Pulse Ox 98.1 F 102 H 26 H 189/99 H 93 L 11/12/18 09:15 11/12/18 09:15 11/12/18 09:15 11/12/18 11:45 11/12/18 09:15 - Medications Medications: Current Medications Albuterol/Ipratropium (Duoneb 3 Mg/0.5 Mg (3 Ml) Ud) 3 ml INH RQ6 PRN PRN Reason: Shortness of Breath Last Admin: 11/12/18 07:50 Dose: 3 ml Amlodipine Besylate (Norvasc) 5 mg PO DAILY [facility] Last Admin: 11/11/18 11:56 Dose: 5 mg Aspirin (Ecotrin) 81 mg PO DAILY [facility] Last Admin: 11/11/18 12:11 Dose: Not Given Calcitriol (Rocaltrol) 0.75 mcg PO DAILY [facility] Last Admin: 11/11/18 12:10 Dose: 0.75 mcg Carvedilol (Coreg) 25 mg PO BID [facility] Last Admin: 11/12/18 11:25 Dose: 25 mg Heparin Sodium (Porcine) (Heparin) 5,000 units SC Q12 [facility] Last Admin: 11/11/18 21:49 Dose: 5,000 units Hydralazine HCl (Apresoline) 25 mg PO BID [facility] Last Admin: 11/12/18 11:24 Dose: 25 mg Doxycycline Hyclate 100 mg/ (Sodium Chloride) 100 mls @ 100 mls/hr IVPB Q12H [facility]; Protocol Last Admin: 11/12/18 05:13 Dose: 100 mls/hr Ceftriaxone Sodium 1 gm/ (Sodium Chloride) 100 mls @ 100 mls/hr IVPB DAILY [facility]; Protocol Last Admin: 11/11/18 11:56 Dose: 100 mls/hr Rosuvastatin Calcium (Crestor) 10 mg PO HS [facility] Last Admin: 11/11/18 21:49 Dose: 10 mg Sevelamer Carbonate (Renvela) 800 mg PO TIDCC [facility] Last Admin: 11/12/18 08:15 Dose: 800 mg - Labs Labs: 11/11/18 10:14 11/11/18 10:14 PT 13.6 SECONDS (9.7-12.2) H 11/11/18 00:31 INR 1.2 11/11/18 00:31 APTT 41 SECONDS (21-34) H 11/11/18 00:31 - Constitutional Appears: Non-toxic - Head Exam Head Exam: NORMAL INSPECTION - Eye Exam Eye Exam: EOMI - ENT Exam ENT Exam: Mucous Membranes Moist - Neck Exam Neck Exam: Full ROM - Respiratory Exam Respiratory Exam: Rales (Diffuse rales) Additional comments: On bipap - Cardiovascular Exam Cardiovascular Exam: REGULAR RHYTHM, +S1, +S2 - GI/Abdominal Exam GI & Abdominal Exam: Soft, Normal Bowel Sounds. absent: Tenderness - Extremities Exam Extremities Exam: absent: Pedal Edema, Tenderness - Neurological Exam Neurological Exam: Alert, Awake, Oriented x3 - Psychiatric Exam Psychiatric exam: Normal Affect, Normal Mood - Skin Skin Exam: Dry, Intact Assessment and Plan - Assessment and Plan (Free Text) Assessment: 63 year old male with pmhx of ESRD, CHF, HTN, HLD admitted for evaluation and treatment of pulmonary edema and suspected PNA Plan: Pulmonary Edema; 2/2 ESRD vs CHF vs PNA -CXR Initial 11/10: Moderate to large loculated left and small right pleural effusion. Prominent consolidative opacification in the mid to lower lung zone as well as the right lung base. Cardiomegaly. Left axillary stent in place. -repeat CXR (11/11) s/p dialysis: Left axillary stent in place. Moderate loculated left pleural effusion. Dense consolidative opacification in mid to lower lung zones bilaterally. Moderate venous congestion. Cardiomegaly. --> Appears minimal improvement. Degenerative changes in the spine and shoulders. Biapical pleural thickening with upper lobe granulomatous changes. -IV abx - Doxy and Zosyn --> Rochephin and Doxy -Abx --Rocephin 1 gm IVPB daily --Doxycycline 100 mg IVPB Q12 -Procalcitonin WNL -pBNP 33,300 on admission; fluid overload -f/u cardiac echo, 01/07 holosystolic murmur -O2 89% on admission -given Lasix 60mg IVP in ED -currently on BiPAP, spO2 94% on FiO2 of 50% -wean to NC s/p HD as tolerated -Duonebs INH Q6 prn -CT chest w w/o contrast 11/11: Cardiomegaly with small to medium-sized pericardial effusion. There are bilateral effusions and bibasilar atelectasis left greater than right. Hazy ground-glass opacity seen in the lower lobes with more discrete nodular opacity scattered throughout the upper lobes. Septal thickening. Collectively the findings are consistent with pulmonary edema/CHF however the possibility of superimposed pneumonia less likely though not completely excluded -Pulm consult - Dr. Walker - f/u recs -Cardio Consult - Dr. Ha - f/u recs ESRD -HD MWF. HD this morning, tolerated well. -continue home medications -Nephrology consult, Dr. Espinosa Hyperkalemia -K 6.3 on admission, normalized s/p HD. -given calcium gluconate in ED -EKG with borderline peaked T waves in lateral leads. Repeating EKG HTN -HD MWF -BP stable -hold home antihypertensives, consider restarting s/p HD pending BP reads HLD -continue home crestor 10mg Ppx -VTE ppx, heparin q12 -GI ppx, protonix -renal diet Discussed with Dr. Vinay Hopkins, PGY-1
[2018-11-12] MEDS: MethylPREDNISolone 40 mg Vial IVP SCH (16:18)
[2018-11-12] MEDS: Albuterol 0.083% Inhal Sol (2.5 mg/3 mL) UD INH SCH ×2 (16:20→20:49)
--- NOTE | 2018-11-12 16:23 | CP.PCM.PN ---
Subjective - Date & Time of Evaluation Date of Evaluation: 11/12/18 Time of Evaluation: 16:18 - Subjective Subjective: PGY-[address] Mclean Patient seen and examined at bedside. Overnight patient did have episode of shortness of breath, but duoneb treatment had not yet been given - once given treatment, patient improved. This mornign again patient, patient was short of breath requiring breathing treatment. Duoneb made Q6 scheduled. Patient was also c/o chest pain so we are repeating ROMIs. However, on rounds patient was doing much better- not having any SOB or chest pain. Denies dizziness, abdominal pain, n/v/d. Objective - Vital Signs/Intake and Output Vital Signs (last 24 hours): Temp Pulse Resp BP Pulse Ox 98.6 F 105 H 20 193/82 H 95 11/12/18 15:51 11/12/18 15:51 11/12/18 15:51 11/12/18 15:51 11/12/18 15:51 - Medications Medications: Current Medications Albuterol Sulfate (Albuterol 0.083% Inhal Louisa (2.5 Mg/3 Ml) Ud) 2.5 mg INH RQ4 [facility] Amlodipine Besylate (Norvasc) 5 mg PO DAILY [facility] Last Admin: 11/12/18 10:00 Dose: Not Given Aspirin (Ecotrin) 81 mg PO DAILY [facility] Last Admin: 11/12/18 10:00 Dose: Not Given Calcitriol (Rocaltrol) 0.75 mcg PO DAILY [facility] Last Admin: 11/12/18 10:00 Dose: Not Given Carvedilol (Coreg) 25 mg PO BID [facility] Last Admin: 11/12/18 11:25 Dose: 25 mg Heparin Sodium (Porcine) (Heparin) 5,000 units SC Q12 [facility] Last Admin: 11/12/18 10:00 Dose: Not Given Hydralazine HCl (Apresoline) 25 mg PO QID [facility] Doxycycline Hyclate 100 mg/ (Sodium Chloride) 100 mls @ 100 mls/hr IVPB Q12H [facility]; Protocol Last Admin: 11/12/18 05:13 Dose: 100 mls/hr Ceftriaxone Sodium 1 gm/ (Sodium Chloride) 100 mls @ 100 mls/hr IVPB DAILY [facility]; Protocol Last Admin: 11/12/18 10:00 Dose: Not Given Methylprednisolone (Solu-Medrol) 40 mg IVP Q8H [facility] Rosuvastatin Calcium (Crestor) 10 mg PO HS [facility] Last Admin: 11/11/18 21:49 Dose: 10 mg Sevelamer Carbonate (Renvela) 800 mg PO TIDCC [facility] Last Admin: 11/12/18 14:30 Dose: 800 mg - Labs Labs: 11/12/18 13:04 11/11/18 10:14 PT 13.6 SECONDS (9.7-12.2) H 11/11/18 00:31 INR 1.2 11/11/18 00:31 APTT 41 SECONDS (21-34) H 11/11/18 00:31 - Constitutional Appears: Non-toxic, No Acute Distress - Head Exam Head Exam: ATRAUMATIC, NORMOCEPHALIC - Eye Exam Eye Exam: EOMI - ENT Exam ENT Exam: Mucous Membranes Moist - Respiratory Exam Respiratory Exam: Rales Additional comments: On NRB - Cardiovascular Exam Cardiovascular Exam: REGULAR RHYTHM, +S1, +S2 - GI/Abdominal Exam GI & Abdominal Exam: Soft, Normal Bowel Sounds. absent: Tenderness - Extremities Exam Extremities Exam: Normal Inspection. absent: Pedal Edema, Tenderness - Neurological Exam Neurological Exam: Alert, Awake, Oriented x3 - Psychiatric Exam Psychiatric exam: Normal Affect, Normal Mood - Skin Skin Exam: Dry, Intact Assessment and Plan - Assessment and Plan (Free Text) Assessment: 63 year old male with pmhx of ESRD, CHF, HTN, HLD admitted for evaluation and treatment of pulmonary edema and suspected PNA Plan: Pulmonary Edema; 2/2 ESRD vs Diastolic CHF vs PNA -CXR Initial 11/10: Moderate to large loculated left and small right pleural effusion. Prominent consolidative opacification in the mid to lower lung zone as well as the right lung base. Cardiomegaly. Left axillary stent in place. -repeat CXR (11/11) s/p dialysis: Left axillary stent in place. Moderate loculated left pleural effusion. Dense consolidative opacification in mid to lower lung zones bilaterally. Moderate venous congestion. Cardiomegaly. --> Appears minimal improvement. Degenerative changes in the spine and shoulders. Biapical pleural thickening with upper lobe granulomatous changes. -IV abx - Doxy and Zosyn --> Rochephin and Doxy -Abx --Rocephin 1 gm IVPB daily --Doxycycline 100 mg IVPB Q12 -Procalcitonin WNL -pBNP 33,300 on admission; fluid overload -f/u cardiac echo, 01/07 holosystolic murmur -O2 89% on admission -given Lasix 60mg IVP in ED -currently on BiPAP, spO2 94% on FiO2 of 50% -wean to NC s/p HD as tolerated -Duonebs INH Q6 prn -CT chest w w/o contrast 11/11: Cardiomegaly with small to medium-sized pericardial effusion. There are bilateral effusions and bibasilar atelectasis left greater than right. Hazy ground-glass opacity seen in the lower lobes with more discrete nodular opacity scattered throughout the upper lobes. Septal thickening. Collectively the findings are consistent with pulmonary edema/CHF however the possibility of superimposed pneumonia less likely though not completely excluded -Pulm consult - Dr. Walker - f/u recs -Cardio Consult - Dr. Ha - f/u recs ESRD -HD MWF. HD this morning, tolerated well. -continue home medications -Nephrology consult, Dr. Espinosa Hyperkalemia -K 6.3 on admission, normalized s/p HD. -given calcium gluconate in ED -EKG with borderline peaked T waves in lateral leads. Repeating EKG HTN -HD MWF -BP in 190s/90s this morning --> Adjusted meds -Norvasc 10 mg Daily (from 5 daily) -Hydralazine 25 mg PO QID (from BID) HLD -continue home crestor 10mg Ppx -VTE ppx, heparin q12 -GI ppx, protonix -renal diet Discussed with Dr. Vinay Hopkins, PGY-1
[2018-11-12 18:10] LABS: CK-MB 1.46 ng/mL (0.0-3.38); TROPONIN I 0.023 ng/mL (0.00-0.120)
--- NOTE | 2018-11-12 19:12 | CP.PCM.CON ---
History of Present Illness - History of Present Illness History of Present Illness: Pulmonology Consult Note for Dr. Walker Reason for Consult: CHF exacerbation, ESRD on dialysis, remains short of breath s/p HD Patient is a 63 year old male with a past medical history of ESRD on HD, CHF, HTN and HLD who presents to the hospital two days ago with complaints of progressively worsening SOB. Patient has being treated as an outpatient for suspected pneumonia by his primary care physician. He ended up missing his dialysis because he was so short of breath so he decided to call 911 to be evaluated. He has been found to have pulmonary edema likely due to fluid overload. Patient is currently feeling much better. He was recently given a duoneb treatment this afternoon due to an episode of SOB, which improved his symptoms. He is requesting an oxygen mask vs NC as he feels better with a mask on. Patient is currently denying fevers, chills, nausea, vomiting, diarrhea, constipation or chest pain. PMH: ESRD on HD, CHF, HTN and HLD PSH: Left UE HD graft meds: ASA, norvasc, hydralazine, coreg, crestor, ranitidine, calcitriol, renvela allergies: NKDA Social: 25 pack year smoking, denies alcohol/drug use Review of Systems - Review of Systems All systems: reviewed and no additional remarkable complaints except (as per HPI) Past Patient History - Infectious Disease Hx of Infectious Diseases: None - Past Medical History & Family History Past Medical History?: Yes - Past Social History Smoking Status: Light Smoker < 10 Cigarettes Daily - CARDIAC Hx Cardiac Disorders: Yes Hx Congestive Heart Failure: Yes Hx Hypercholesterolemia: Yes Hx Hypertension: Yes - PULMONARY Hx Respiratory Disorders: No - NEUROLOGICAL Hx Neurological Disorder: Yes Hx Transient Ischemic Attacks (TIA): Yes (MAYBE) - HEENT Hx HEENT Problems: Yes Hx Cataracts: Yes (S/P Rt cataract surgery) - RENAL Hx Chronic Kidney Disease: Yes Hx Dialysis: Yes Type of Dialysis Access: 11/11/18 - ENDOCRINE/METABOLIC Hx Endocrine Disorders: No - HEMATOLOGICAL/ONCOLOGICAL Hx Blood Disorders: Yes Hx Anemia: Yes - INTEGUMENTARY Hx Dermatological Problems: No - MUSCULOSKELETAL/RHEUMATOLOGICAL Hx Musculoskeletal Disorders: No Hx Falls: No - GASTROINTESTINAL Hx Gastrointestinal Disorders: No - GENITOURINARY/GYNECOLOGICAL Hx Genitourinary Disorders: No - PSYCHIATRIC Hx Psychophysiologic Disorder: No Hx Substance Use: No - SURGICAL HISTORY Hx Surgeries: Yes Hx Arteriovenous Shunt: Yes (left arm / LEFT WRIST) Hx Cataract Extraction: Yes (RT. EYE) - ANESTHESIA Hx Anesthesia: Yes Hx Anesthesia Reactions: No Hx Malignant Hyperthermia: No Meds Allergies/Adverse Reactions: Allergies Allergy/AdvReac Type Severity Reaction Status Date / Time No Known Allergies Allergy Verified 11/10/18 23:07 - Medications Medications: Current Medications Albuterol Sulfate (Albuterol 0.083% Inhal Louisa (2.5 Mg/3 Ml) Ud) 2.5 mg INH RQ4 [facility] Amlodipine Besylate (Norvasc) 10 mg PO DAILY [facility] Last Admin: 11/12/18 17:59 Dose: 10 mg Aspirin (Ecotrin) 81 mg PO DAILY [facility] Last Admin: 11/12/18 10:00 Dose: Not Given Calcitriol (Rocaltrol) 0.75 mcg PO DAILY [facility] Last Admin: 11/12/18 10:00 Dose: Not Given Carvedilol (Coreg) 25 mg PO BID [facility] Last Admin: 11/12/18 17:59 Dose: 25 mg Heparin Sodium (Porcine) (Heparin) 5,000 units SC Q12 [facility] Last Admin: 11/12/18 10:00 Dose: Not Given Hydralazine HCl (Apresoline) 25 mg PO QID [facility] Last Admin: 11/12/18 17:59 Dose: 25 mg Doxycycline Hyclate 100 mg/ (Sodium Chloride) 100 mls @ 100 mls/hr IVPB Q12H [facility]; Protocol Last Admin: 11/12/18 18:00 Dose: 100 mls/hr Ceftriaxone Sodium 1 gm/ (Sodium Chloride) 100 mls @ 100 mls/hr IVPB DAILY [facility]; Protocol Last Admin: 11/12/18 10:00 Dose: Not Given Methylprednisolone (Solu-Medrol) 40 mg IVP Q8H [facility] Last Admin: 11/12/18 16:18 Dose: 40 mg Rosuvastatin Calcium (Crestor) 10 mg PO HS [facility] Last Admin: 11/11/18 21:49 Dose: 10 mg Sevelamer Carbonate (Renvela) 800 mg PO TIDCC [facility] Last Admin: 11/12/18 18:00 Dose: 800 mg Physical Exam - Constitutional Appears: Non-toxic, No Acute Distress - Head Exam Head Exam: ATRAUMATIC, NORMOCEPHALIC - Eye Exam Eye Exam: Normal appearance - ENT Exam ENT Exam: Mucous Membranes Moist - Respiratory Exam Respiratory Exam: Rales, NORMAL BREATHING PATTERN. absent: Accessory Muscle Use, Rhonchi, Wheezes, Respiratory Distress - Cardiovascular Exam Cardiovascular Exam: REGULAR RHYTHM, +S1, +S2 - GI/Abdominal Exam GI & Abdominal Exam: Soft. absent: Distended, Firm, Guarding, Tenderness - Extremities Exam Extremities exam: Positive for: normal inspection. Negative for: calf tenderness Additional comments: AVF on left UE - Neurological Exam Neurological exam: Alert, Oriented x3 - Psychiatric Exam Psychiatric exam: Normal Affect, Normal Mood - Skin Skin Exam: Dry, Warm Results - Vital Signs Recent Vital Signs: Last Vital Signs Temp 98.6 F 11/12/18 15:51 Pulse 105 H 11/12/18 15:51 Resp 20 11/12/18 15:51 BP 193/82 H 11/12/18 17:59 Pulse Ox 95 11/12/18 15:51 - Labs Result Diagrams: 11/12/18 13:04 11/11/18 10:14 Labs: Laboratory Results - last 24 hr 11/12/18 11/12/18 11/12/18 07:09 13:04 17:01 WBC 9.0 RBC 3.79 L Hgb 10.1 L Hct 31.0 L MCV 81.7 MCH 26.6 L MCHC 32.6 L RDW 20.0 H Plt Count 147 MPV 8.3 Neut % (Auto) 77.4 H Lymph % (Auto) 11.1 L Webb % (Auto) 10.3 H Eos % (Auto) 0.4 Baso % (Auto) 0.8 Neut # (Auto) 7.0 Lymph # (Auto) 1.0 Webb # (Auto) 0.9 H Eos # (Auto) 0.0 Baso # (Auto) 0.1 Phosphorus 3.4 Magnesium 2.2 Total Creatine Kinase 207 H CK-MB (Mass) 1.46 Troponin I 0.0230 Assessment & Plan (1) Pulmonary edema Assessment and Plan: CXR and CT show pulmonary edema This is likely secondary to fluid overload Patient received extra session of dialysis and is now scheduled to return to [facility] dialysis schedule. Albuterol increased q4h Solu-Medrol 40mg IVP q8h - patient has 25+ PPD smoking history, likely has COPD. Will need outpatient work-up Venti Mask @40% continue to monitor Status: Acute (2) ESRD needing dialysis Status: Acute (3) Diabetes Status: Chronic (4) CHF exacerbation Status: Suspected
[2018-11-12] MEDS ORDERED: Albuterol-Ipratrop 3 mg / 0.5 (3 ml) UD INH SCH (20:00)
[2018-11-12 22:12] LABS: CK-MB 1.14 ng/mL (0.0-3.38); TROPONIN I 0.022 ng/mL (0.00-0.120)
[2018-11-13] MEDS: MethylPREDNISolone 40 mg Vial IVP SCH ×3 (00:09→16:20)
[2018-11-13] MEDS: Albuterol 0.083% Inhal Sol (2.5 mg/3 mL) UD INH SCH ×6 (00:24→20:36)
[2018-11-13 03:32] LABS: CK-MB 1.29 ng/mL (0.0-3.38); TROPONIN I 0.015 ng/mL (0.00-0.120)
[2018-11-13 07:58] LABS: BASO % 0.2 % (0.0-2.0); HEMOGLOBIN 9.6 g/dL (12.0-18.0); LYMPH # 0.4 K/uL (1.0-4.3); LYMPH % 5.1 % (20.0-40.0); MEAN CELL VOLUME 81.5 fL (80.0-94.0); MEAN CORPUSCULAR HEMOGLOBIN 27.3 pg (27.0-31.0); MEAN CORPUSCULAR HGB CONC 33.5 g/dL (33.0-37.0); MEAN PLATELET VOLUME 8.7 fL (7.2-11.7); MONO # 0.2 K/uL (0.0-0.8); MONO % 2.3 % (0.0-10.0); NEUT # 6.5 K/uL (1.8-7.0); NEUT % 92.4 % (50.0-75.0); PLATELET COUNT 136 K/uL (130-400); RBC 3.53 Mil/uL (4.40-5.90); RED CELL DISTRIBUTION WIDTH 19.7 % (11.5-14.5); WHITE BLOOD COUNT 7.1 K/uL (4.8-10.8)
[2018-11-13 08:52] LABS: ALB/GLOB RATIO 0.9 (1.0-2.1); ALBUMIN 3.5 g/dL (3.5-5.0); CALCIUM 8.3 mg/dl (8.6-10.4)
[2018-11-13 09:40] LABS: ANISOCYTOSIS SLIGHT; BANDS 1 % (0-2); HYPOCHROMIC SLIGHT; LYMPHOCYTE 8 % (20-40); MONOCYTE 1 % (0-10); NEUTROPHIL 89 % (50-75); PLATELET ESTIMATE NORMAL (NORMAL); POIKILOCYTOSIS SLIGHT; REACTIVE LYMPHOCYTES 1 % (0-0); TOTAL CELLS COUNTED 100
[2018-11-13 09:41] LABS: LARGE PLATELETS PRESENT; OVALOCYTES SLIGHT; TARGET CELLS SLIGHT
--- NOTE | 2018-11-13 10:14 | CP.PCM.PN ---
Subjective - Date & Time of Evaluation Date of Evaluation: 11/13/18 Time of Evaluation: 10:13 - Subjective Subjective: feels better less dyspnea BP still elevated no other complaint Objective - Vital Signs/Intake and Output Vital Signs (last 24 hours): Temp Pulse Resp BP Pulse Ox 97.2 F L 78 20 160/68 H 97 11/13/18 07:00 11/13/18 10:09 11/13/18 07:00 11/13/18 07:00 11/13/18 07:00 Intake and Output: 11/13/18 11/13/18 06:59 18:59 Intake Total 150 Balance 150 - Medications Medications: Current Medications Albuterol Sulfate (Albuterol 0.083% Inhal Louisa (2.5 Mg/3 Ml) Ud) 2.5 mg INH RQ4 [facility] Last Admin: 11/13/18 07:55 Dose: 2.5 mg Amlodipine Besylate (Norvasc) 10 mg PO DAILY [facility] Last Admin: 11/13/18 09:38 Dose: 10 mg Aspirin (Ecotrin) 81 mg PO DAILY [facility] Last Admin: 11/13/18 09:38 Dose: 81 mg Calcitriol (Rocaltrol) 0.75 mcg PO DAILY [facility] Last Admin: 11/13/18 09:45 Dose: 0.75 mcg Carvedilol (Coreg) 25 mg PO BID [facility] Last Admin: 11/12/18 17:59 Dose: 25 mg Heparin Sodium (Porcine) (Heparin) 5,000 units SC Q12 [facility] Last Admin: 11/13/18 09:38 Dose: 5,000 units Hydralazine HCl (Apresoline) 25 mg PO QID [facility] Last Admin: 11/13/18 09:38 Dose: 25 mg Doxycycline Hyclate 100 mg/ (Sodium Chloride) 100 mls @ 100 mls/hr IVPB Q12H [facility]; Protocol Last Admin: 11/13/18 05:23 Dose: 100 mls/hr Ceftriaxone Sodium 1 gm/ (Sodium Chloride) 100 mls @ 100 mls/hr IVPB DAILY [facility]; Protocol Last Admin: 11/12/18 10:00 Dose: Not Given Methylprednisolone (Solu-Medrol) 40 mg IVP Q8H [facility] Last Admin: 11/13/18 06:42 Dose: 40 mg Rosuvastatin Calcium (Crestor) 10 mg PO HS [facility] Last Admin: 11/12/18 21:26 Dose: 10 mg Sevelamer Carbonate (Renvela) 800 mg PO TIDCC [facility] Last Admin: 11/13/18 08:43 Dose: 800 mg - Labs Labs: 11/13/18 07:21 11/13/18 07:21 PT 13.6 SECONDS (9.7-12.2) H 11/11/18 00:31 INR 1.2 11/11/18 00:31 APTT 41 SECONDS (21-34) H 11/11/18 00:31 - Constitutional Appears: No Acute Distress, Chronically Ill - Head Exam Head Exam: ATRAUMATIC, NORMAL INSPECTION - Eye Exam Eye Exam: EOMI, Normal appearance - Neck Exam Neck Exam: Normal Inspection. absent: Tenderness - Respiratory Exam Respiratory Exam: Clear to Ausculation Bilateral, NORMAL BREATHING PATTERN - Cardiovascular Exam Cardiovascular Exam: REGULAR RHYTHM, +S1 - GI/Abdominal Exam GI & Abdominal Exam: Soft. absent: Tenderness - Extremities Exam Extremities Exam: Normal Inspection. 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
[2018-11-13] MEDS ORDERED: (Novolog) Insulin Aspart, Recombinant 100 u/ml 10 ml vial SC ONE (11:44)
[2018-11-13] MEDS: Pantoprazole 20 mg EC Tab PO SCH (12:10)
--- NOTE | 2018-11-13 15:33 | CP.PCM.PN ---
Subjective - Date & Time of Evaluation Date of Evaluation: 11/13/18 Time of Evaluation: 15:34 - Subjective Subjective: PGY-[address] Mclean Patient seen and examined. No acute events overnight. Meds increased and added solumedrol 40 IV q8. He was breathing comfortably today on exam. No other complaints. Objective - Vital Signs/Intake and Output Vital Signs (last 24 hours): Temp Pulse Resp BP Pulse Ox 97.2 F L 78 20 169/76 H 97 11/13/18 07:00 11/13/18 10:09 11/13/18 07:00 11/13/18 10:55 11/13/18 07:00 Intake and Output: 11/13/18 11/13/18 06:59 18:59 Intake Total 150 Balance 150 - Medications Medications: Current Medications Albuterol Sulfate (Albuterol 0.083% Inhal Louisa (2.5 Mg/3 Ml) Ud) 2.5 mg INH RQ4 [facility] Last Admin: 11/13/18 11:30 Dose: 2.5 mg Amlodipine Besylate (Norvasc) 10 mg PO DAILY [facility] Last Admin: 11/13/18 09:38 Dose: 10 mg Aspirin (Ecotrin) 81 mg PO DAILY [facility] Last Admin: 11/13/18 09:38 Dose: 81 mg Calcitriol (Rocaltrol) 0.75 mcg PO DAILY [facility] Last Admin: 11/13/18 09:45 Dose: 0.75 mcg Carvedilol (Coreg) 25 mg PO BID [facility] Last Admin: 11/13/18 10:55 Dose: 25 mg Heparin Sodium (Porcine) (Heparin) 5,000 units SC Q12 [facility] Last Admin: 11/13/18 09:38 Dose: 5,000 units Hydralazine HCl (Apresoline) 50 mg PO TID [facility] Doxycycline Hyclate 100 mg/ (Sodium Chloride) 100 mls @ 100 mls/hr IVPB Q12H [facility]; Protocol Last Admin: 11/13/18 05:23 Dose: 100 mls/hr Ceftriaxone Sodium 1 gm/ (Sodium Chloride) 100 mls @ 100 mls/hr IVPB DAILY [facility]; Protocol Last Admin: 11/13/18 11:00 Dose: 100 mls/hr Methylprednisolone (Solu-Medrol) 40 mg IVP Q8H [facility] Last Admin: 11/13/18 06:42 Dose: 40 mg Pantoprazole Sodium (Protonix Ec Tab) 20 mg PO DAILY [facility] Last Admin: 11/13/18 12:10 Dose: 20 mg Rosuvastatin Calcium (Crestor) 10 mg PO HS [facility] Last Admin: 11/12/18 21:26 Dose: 10 mg Sevelamer Carbonate (Renvela) 800 mg PO TIDCC [facility] Last Admin: 11/13/18 08:43 Dose: 800 mg - Labs Labs: 11/13/18 07:21 11/13/18 07:21 PT 13.6 SECONDS (9.7-12.2) H 11/11/18 00:31 INR 1.2 11/11/18 00:31 APTT 41 SECONDS (21-34) H 11/11/18 00:31 - Constitutional Appears: Non-toxic, No Acute Distress - Head Exam Head Exam: ATRAUMATIC, NORMOCEPHALIC - Eye Exam Eye Exam: EOMI, PERRL - ENT Exam ENT Exam: Mucous Membranes Moist - Respiratory Exam Respiratory Exam: Clear to Ausculation Bilateral, NORMAL BREATHING PATTERN. absent: Rhonchi, Wheezes - Cardiovascular Exam Cardiovascular Exam: REGULAR RHYTHM, +S1, +S2 - GI/Abdominal Exam GI & Abdominal Exam: Soft, Normal Bowel Sounds. absent: Tenderness - Extremities Exam Extremities Exam: Normal Inspection. absent: Pedal Edema, Tenderness - Neurological Exam Neurological Exam: Alert, Awake, Oriented x3 - Psychiatric Exam Psychiatric exam: Normal Affect, Normal Mood - Skin Skin Exam: Dry, Intact Assessment and Plan - Assessment and Plan (Free Text) Assessment: 63 year old male with pmhx of ESRD, CHF, HTN, HLD admitted for evaluation and treatment of pulmonary edema and suspected PNA Plan: Pulmonary Edema and shortness of breath; 2/2 ESRD + suspected COPD based on smoking history -CXR Initial 11/10: Moderate to large loculated left and small right pleural effusion. Prominent consolidative opacification in the mid to lower lung zone as well as the right lung base. Cardiomegaly. Left axillary stent in place. -repeat CXR (11/11) s/p dialysis: Left axillary stent in place. Moderate loculated left pleural effusion. Dense consolidative opacification in mid to lower lung zones bilaterally. Moderate venous congestion. Cardiomegaly. --> Appears minimal improvement. -CT chest w w/o contrast 11/11: Cardiomegaly with small to medium-sized pericardial effusion. There are bilateral effusions and bibasilar atelectasis left greater than right. Hazy ground-glass opacity seen in the lower lobes with more discrete nodular opacity scattered throughout the upper lobes. Septal thickening. Collectively the findings are consistent with pulmonary edema/CHF however the possibility of superimposed pneumonia less likely though not completely excluded Biapical pleural thickening with upper lobe granulomatous changes. -IV abx - Doxy and Zosyn --> Rochephin and Doxy -Abx --Rocephin 1 gm IVPB daily --Doxycycline 100 mg IVPB Q12 -Procalcitonin WNL -pBNP 33,300 on admission; fluid overload -f/u cardiac echo, 01/07 holosystolic murmur -O2 89% on admission -given Lasix 60mg IVP in ED -Pulm consult - Dr. Walker - f/u recs --Off bipap --> ventimask at 40% --wean to NC s/p HD as tolerated -Meds --Duonebs INH Q6 michael --albuterol Q4 michael --solumedrol 40 mg IV Q8 -Cardio Consult - Dr. Ha - f/u recs ESRD -HD MWF. HD this morning, tolerated well. -continue home medications -Nephrology consult, Dr. Espinosa Hyperkalemia -K 6.3 on admission, normalized s/p HD. -given calcium gluconate in ED -EKG with borderline peaked T waves in lateral leads. Repeating EKG HTN -HD MWF -BP in 190s/90s this morning --> Adjusted meds -Norvasc 10 mg Daily -Hydralazine 25 mg PO QID HLD -continue home crestor 10mg Ppx -VTE ppx, heparin q12 -GI ppx, protonix -renal diet Discussed with Dr. Vinay Hopkins, PGY-1
--- NOTE | 2018-11-13 18:06 | CP.PCM.PN ---
Subjective - Date & Time of Evaluation Date of Evaluation: 11/13/18 Time of Evaluation: 10:40 - Subjective Subjective: Patient seen and examined at bedside. Has complaints of burning upper abdominal pain primarily at night. Patient states that breathing has improved since receiving hemodialysis and is scheduled for another session today. Patient denies any shortness of breath or chest pain at this time. Exam: General: Patient is in no acute distress. Heart: regular rate and rhythm, S1, S2. Lungs: clear to auscultation bilaterally. Abdomen: soft nontender nondistended Objective - Vital Signs/Intake and Output Vital Signs (last 24 hours): Temp Pulse Resp BP Pulse Ox 98.2 F 81 20 139/67 97 11/13/18 15:00 11/13/18 15:27 11/13/18 15:00 11/13/18 15:00 11/13/18 15:00 Intake and Output: 11/13/18 11/13/18 06:59 18:59 Intake Total 150 Balance 150 - Medications Medications: Current Medications Albuterol Sulfate (Albuterol 0.083% Inhal Louisa (2.5 Mg/3 Ml) Ud) 2.5 mg INH RQ4 [facility] Last Admin: 11/13/18 16:25 Dose: 2.5 mg Amlodipine Besylate (Norvasc) 10 mg PO DAILY [facility] Last Admin: 11/13/18 09:38 Dose: 10 mg Aspirin (Ecotrin) 81 mg PO DAILY [facility] Last Admin: 11/13/18 09:38 Dose: 81 mg Calcitriol (Rocaltrol) 0.75 mcg PO DAILY [facility] Last Admin: 11/13/18 09:45 Dose: 0.75 mcg Carvedilol (Coreg) 25 mg PO BID [facility] Last Admin: 11/13/18 10:55 Dose: 25 mg Heparin Sodium (Porcine) (Heparin) 5,000 units SC Q12 [facility] Last Admin: 11/13/18 09:38 Dose: 5,000 units Hydralazine HCl (Apresoline) 50 mg PO TID [facility] Doxycycline Hyclate 100 mg/ (Sodium Chloride) 100 mls @ 100 mls/hr IVPB Q12H [facility]; Protocol Last Admin: 11/13/18 05:23 Dose: 100 mls/hr Ceftriaxone Sodium 1 gm/ (Sodium Chloride) 100 mls @ 100 mls/hr IVPB DAILY [facility]; Protocol Last Admin: 11/13/18 11:00 Dose: 100 mls/hr Methylprednisolone (Solu-Medrol) 40 mg IVP Q8H [facility] Last Admin: 11/13/18 06:42 Dose: 40 mg Pantoprazole Sodium (Protonix Ec Tab) 20 mg PO DAILY [facility] Last Admin: 11/13/18 12:10 Dose: 20 mg Rosuvastatin Calcium (Crestor) 10 mg PO HS [facility] Last Admin: 11/12/18 21:26 Dose: 10 mg Sevelamer Carbonate (Renvela) 800 mg PO TIDCC [facility] Last Admin: 11/13/18 08:43 Dose: 800 mg - Labs Labs: 11/13/18 07:21 11/13/18 07:21 PT 13.6 SECONDS (9.7-12.2) H 11/11/18 00:31 INR 1.2 11/11/18 00:31 APTT 41 SECONDS (21-34) H 11/11/18 00:31 - Head Exam Head Exam: ATRAUMATIC, NORMOCEPHALIC - ENT Exam ENT Exam: Mucous Membranes Moist - Respiratory Exam Respiratory Exam: Rhonchi, Wheezes - Cardiovascular Exam Cardiovascular Exam: REGULAR RHYTHM - GI/Abdominal Exam GI & Abdominal Exam: Soft, Normal Bowel Sounds Assessment and Plan (1) COPD (chronic obstructive pulmonary disease) Assessment & Plan: patient with long history of smoking Nebulizer treatment and IV steroid patient also complaining of acid reflux Status: Acute (2) ESRD needing dialysis Status: Acute (3) Pulmonary edema Status: Acute
[2018-11-13] MEDS ORDERED: Glucagon Recombinant 1 mg Inj IM PRN (22:09)
[2018-11-13] MEDS ORDERED: Dextrose 50% SYRINGE Inj (50 ml) IV PRN (22:09)
[2018-11-14] MEDS: Albuterol 0.083% Inhal Sol (2.5 mg/3 mL) UD INH SCH ×6 (00:05→19:42)
[2018-11-14] MEDS: MethylPREDNISolone 40 mg Vial IVP SCH ×3 (00:08→16:00)
[2018-11-14 07:47] LABS: HEMOGLOBIN 8.7 g/dL (12.0-18.0); LYMPH # 0.5 K/uL (1.0-4.3); LYMPH % 4.6 % (20.0-40.0); MEAN CELL VOLUME 82.1 fL (80.0-94.0); MEAN CORPUSCULAR HEMOGLOBIN 26.3 pg (27.0-31.0); MEAN PLATELET VOLUME 8.6 fL (7.2-11.7); MONO # 0.4 K/uL (0.0-0.8); MONO % 3.9 % (0.0-10.0); NEUT # 9.8 K/uL (1.8-7.0); NEUT % 91.5 % (50.0-75.0); PLATELET COUNT 145 K/uL (130-400); RBC 3.32 Mil/uL (4.40-5.90); RED CELL DISTRIBUTION WIDTH 19.5 % (11.5-14.5)
[2018-11-14 07:51] LABS: WHITE BLOOD COUNT 10.7 K/uL (4.8-10.8)
[2018-11-14] MEDS: (Novolin R) Insulin Human Regular 100 units/ml vial SC SCH ×4 (08:04→21:37)
[2018-11-14 08:09] LABS: ALB/GLOB RATIO 0.9 (1.0-2.1); ALBUMIN 3.5 g/dL (3.5-5.0); CALCIUM 8.4 mg/dl (8.6-10.4)
[2018-11-14 09:57] LABS: BANDS 1 % (0-2); LYMPHOCYTE 2 % (20-40); MONOCYTE 2 % (0-10); NEUTROPHIL 95 % (50-75); PLATELET ESTIMATE NORMAL (NORMAL); TOTAL CELLS COUNTED 100
[2018-11-14 09:58] LABS: ANISOCYTOSIS SLIGHT; HYPOCHROMIC SLIGHT; POIKILOCYTOSIS SLIGHT
[2018-11-14] MEDS: Pantoprazole 20 mg EC Tab PO SCH (12:40)
--- NOTE | 2018-11-14 13:49 | CP.PCM.PN ---
Subjective - Date & Time of Evaluation Date of Evaluation: 11/14/18 Time of Evaluation: 13:47 - Subjective Subjective: s/p dialysis now Still dyspneic though Increase fluid intake noted-5400ml between ntreatments HTN elevated Objective - Vital Signs/Intake and Output Vital Signs (last 24 hours): Temp Pulse Resp BP Pulse Ox 97.6 F 81 20 141/59 L 99 11/14/18 12:25 11/14/18 12:25 11/14/18 12:25 11/14/18 12:25 11/14/18 12:25 - Medications Medications: Current Medications Albuterol Sulfate (Albuterol 0.083% Inhal Louisa (2.5 Mg/3 Ml) Ud) 2.5 mg INH RQ4 [facility] Last Admin: 11/14/18 09:17 Dose: Not Given Amlodipine Besylate (Norvasc) 10 mg PO DAILY [facility] Last Admin: 11/14/18 12:39 Dose: 10 mg Aspirin (Ecotrin) 81 mg PO DAILY [facility] Last Admin: 11/14/18 12:47 Dose: 81 mg Calcitriol (Rocaltrol) 0.75 mcg PO DAILY [facility] Last Admin: 11/14/18 12:47 Dose: 0.75 mcg Carvedilol (Coreg) 25 mg PO BID [facility] Last Admin: 11/14/18 10:00 Dose: Not Given Dextrose (Dextrose 50% Inj) 0 ml IV STAT PRN; Protocol PRN Reason: Hypoglycemia Protocol Dextrose (Glutose 15) 0 gm PO ONCE PRN; Protocol PRN Reason: Hypoglycemia Protocol Glucagon (Glucagen Diagnostic Kit) 0 mg IM STAT PRN; Protocol PRN Reason: Hypoglycemia Protocol Hydralazine HCl (Apresoline) 50 mg PO TID [facility] Last Admin: 11/14/18 13:08 Dose: Not Given Doxycycline Hyclate 100 mg/ (Sodium Chloride) 100 mls @ 100 mls/hr IVPB Q12H [facility]; Protocol Last Admin: 11/14/18 05:21 Dose: 100 mls/hr Ceftriaxone Sodium 1 gm/ (Sodium Chloride) 100 mls @ 100 mls/hr IVPB DAILY [facility]; Protocol Last Admin: 11/14/18 12:47 Dose: 100 mls/hr Dextrose (Dextrose 5% In Water 1000 Ml) 1,000 mls @ 0 mls/hr IV .Q0M PRN; Protocol PRN Reason: Hypoglycemia Protocol Insulin Human Regular (Novolin R) 0 unit SC ACHS [facility]; Protocol Last Admin: 11/14/18 12:57 Dose: 6 units Methylprednisolone (Solu-Medrol) 40 mg IVP Q8H [facility] Last Admin: 11/14/18 06:42 Dose: 40 mg Pantoprazole Sodium (Protonix Ec Tab) 20 mg PO DAILY [facility] Last Admin: 11/14/18 12:40 Dose: 20 mg Rosuvastatin Calcium (Crestor) 10 mg PO HS [facility] Last Admin: 11/13/18 22:50 Dose: 10 mg Sevelamer Carbonate (Renvela) 800 mg PO TIDCC [facility] Last Admin: 11/14/18 12:41 Dose: 800 mg - Labs Labs: 11/14/18 07:20 11/14/18 07:20 PT 13.6 SECONDS (9.7-12.2) H 11/11/18 00:31 INR 1.2 11/11/18 00:31 APTT 41 SECONDS (21-34) H 11/11/18 00:31 - Constitutional Appears: In Acute Distress, Chronically Ill - Head Exam Head Exam: ATRAUMATIC, NORMAL INSPECTION - Eye Exam Eye Exam: EOMI, Normal appearance - Neck Exam Neck Exam: Normal Inspection. absent: Tenderness - Respiratory Exam Respiratory Exam: Rhonchi, Respiratory Distress - Cardiovascular Exam Cardiovascular Exam: REGULAR RHYTHM, +S1 - GI/Abdominal Exam GI & Abdominal Exam: Soft. absent: Tenderness - Extremities Exam Extremities Exam: Normal Inspection. absent: Tenderness - Neurological Exam Neurological Exam: Awake, CN II-XII Intact - Skin Skin Exam: Dry, Warm Assessment and Plan (1) ESRD needing dialysis Status: Acute (2) HTN (hypertension), malignant Status: Acute (3) DM type 1 causing renal disease Status: Chronic (4) CHF exacerbation Status: Suspected - Assessment and Plan (Free Text) Plan: extra dialysis in AM lower EDW at dialysis outpt adjust BP meds
--- NOTE | 2018-11-14 13:51 | CP.PCM.PN ---
Subjective - Date & Time of Evaluation Date of Evaluation: 11/14/18 Time of Evaluation: 14:33 - Subjective Subjective: PGY-[address] Mclean Patient seen and examined. No acute events overnight. Patient not complaining of shortness of breath or chest pain, saturating well on nasal canula. Discussed with Dr. Pang, we will plan for patient to be discharged following additional HD session tomorrow morning. He has been complaining as well of severe heart burn symptoms. We recommend that patient to follow up with Dr. Monique DAMON as outpatient. Patient denies headache n/v/d/c. Objective - Vital Signs/Intake and Output Vital Signs (last 24 hours): Temp Pulse Resp BP Pulse Ox 97.6 F 81 20 141/59 L 99 11/14/18 12:25 11/14/18 12:25 11/14/18 12:25 11/14/18 12:25 11/14/18 12:25 - Medications Medications: Current Medications Albuterol Sulfate (Albuterol 0.083% Inhal Louisa (2.5 Mg/3 Ml) Ud) 2.5 mg INH RQ4 [facility] Last Admin: 11/14/18 09:17 Dose: Not Given Amlodipine Besylate (Norvasc) 10 mg PO DAILY [facility] Last Admin: 11/14/18 12:39 Dose: 10 mg Aspirin (Ecotrin) 81 mg PO DAILY [facility] Last Admin: 11/14/18 12:47 Dose: 81 mg Calcitriol (Rocaltrol) 0.75 mcg PO DAILY [facility] Last Admin: 11/14/18 12:47 Dose: 0.75 mcg Carvedilol (Coreg) 25 mg PO BID [facility] Last Admin: 11/14/18 10:00 Dose: Not Given Dextrose (Dextrose 50% Inj) 0 ml IV STAT PRN; Protocol PRN Reason: Hypoglycemia Protocol Dextrose (Glutose 15) 0 gm PO ONCE PRN; Protocol PRN Reason: Hypoglycemia Protocol Glucagon (Glucagen Diagnostic Kit) 0 mg IM STAT PRN; Protocol PRN Reason: Hypoglycemia Protocol Hydralazine HCl (Apresoline) 50 mg PO TID [facility] Last Admin: 11/14/18 13:08 Dose: Not Given Doxycycline Hyclate 100 mg/ (Sodium Chloride) 100 mls @ 100 mls/hr IVPB Q12H [facility]; Protocol Last Admin: 11/14/18 05:21 Dose: 100 mls/hr Ceftriaxone Sodium 1 gm/ (Sodium Chloride) 100 mls @ 100 mls/hr IVPB DAILY [facility]; Protocol Last Admin: 11/14/18 12:47 Dose: 100 mls/hr Dextrose (Dextrose 5% In Water 1000 Ml) 1,000 mls @ 0 mls/hr IV .Q0M PRN; Protocol PRN Reason: Hypoglycemia Protocol Insulin Human Regular (Novolin R) 0 unit SC ACHS [facility]; Protocol Last Admin: 11/14/18 12:57 Dose: 6 units Methylprednisolone (Solu-Medrol) 40 mg IVP Q8H [facility] Last Admin: 11/14/18 06:42 Dose: 40 mg Pantoprazole Sodium (Protonix Ec Tab) 20 mg PO DAILY [facility] Last Admin: 11/14/18 12:40 Dose: 20 mg Rosuvastatin Calcium (Crestor) 10 mg PO HS [facility] Last Admin: 11/13/18 22:50 Dose: 10 mg Sevelamer Carbonate (Renvela) 800 mg PO TIDCC [facility] Last Admin: 11/14/18 12:41 Dose: 800 mg - Labs Labs: 11/14/18 07:20 11/14/18 07:20 PT 13.6 SECONDS (9.7-12.2) H 11/11/18 00:31 INR 1.2 11/11/18 00:31 APTT 41 SECONDS (21-34) H 11/11/18 00:31 - Constitutional Appears: Non-toxic, No Acute Distress - Head Exam Head Exam: ATRAUMATIC, NORMOCEPHALIC - Eye Exam Eye Exam: EOMI - ENT Exam ENT Exam: Mucous Membranes Moist - Respiratory Exam Respiratory Exam: Clear to Ausculation Bilateral, NORMAL BREATHING PATTERN. abs ent: Decreased Breath Sounds, Rales, Rhonchi, Wheezes - Cardiovascular Exam Cardiovascular Exam: REGULAR RHYTHM, +S1, +S2, Murmur (Holosystolic murmur heard best at left 2nd intercostal space) - GI/Abdominal Exam GI & Abdominal Exam: Soft, Normal Bowel Sounds. absent: Tenderness - Extremities Exam Extremities Exam: absent: Pedal Edema, Tenderness - Neurological Exam Neurological Exam: Alert, Awake, Oriented x3 - Psychiatric Exam Psychiatric exam: Normal Affect, Normal Mood - Skin Skin Exam: Dry, Intact Assessment and Plan - Assessment and Plan (Free Text) Assessment: 63 year old male with pmhx of ESRD, CHF, HTN, HLD admitted for evaluation and treatment of pulmonary edema. Due to acute on chronic renal failure exacerbated by COPD from long history of smoking. Plan: Pulmonary Edema and shortness of breath; 2/2 ESRD + suspected COPD based on oking history -CXR Initial 11/10: Moderate to large loculated left and small right pleural effusion. Prominent consolidative opacification in the mid to lower lung zone as well as the right lung base. Cardiomegaly. Left axillary stent in place. -repeat CXR (11/11) s/p dialysis: Left axillary stent in place. Moderate loculated left pleural effusion. Dense consolidative opacification in mid to lower lung zones bilaterally. Moderate venous congestion. Cardiomegaly. --> Appears minimal improvement. -CT chest w w/o contrast 11/11: Cardiomegaly with small to medium-sized pericardial effusion. There are bilateral effusions and bibasilar atelectasis left greater than right. Hazy ground-glass opacity seen in the lower lobes with more discrete nodular opacity scattered throughout the upper lobes. Septal thickening. Collectively the findings are consistent with pulmonary edema/CHF however the possibility of superimposed pneumonia less likely though not completely excluded Biapical pleural thickening with upper lobe granulomatous changes. -IV abx - Doxy and Zosyn --> Rochephin and Doxy -Abx --Rocephin 1 gm IVPB daily --Doxycycline 100 mg IVPB Q12 -Procalcitonin WNL -pBNP 33,300 on admission; fluid overload -f/u cardiac echo, 01/07 holosystolic murmur -O2 89% on admission -given Lasix 60mg IVP in ED -Pulm consult - Dr. Walker - f/u recs --Off bipap --> ventimask at 40% --wean to NC s/p HD as tolerated -Meds --Duonebs INH Q6 michael --albuterol Q4 michael --solumedrol 40 mg IV Q8 -Cardio Consult - Dr. Ha - f/u recs ESRD -HD MWF. HD this morning, tolerated well. -continue home medications -Nephrology consult, Dr. Espinosa -Patient to remain hospitalized overnight in order for additional HD session on 11/15 in AM. Cr 6.3. Hyperkalemia -K 6.3 on admission, normalized s/p HD. -given calcium gluconate in ED -Has normalized with HD HTN -HD MWF -BP in 190s/90s this morning --> Adjusted meds -Norvasc 10 mg Daily -Hydralazine 25 mg PO QID HLD -continue home crestor 10mg Ppx -VTE ppx, heparin q12 -GI ppx, protonix -renal diet Dispo: -Patient to remain hospitalized overnight in order for additional HD session on 11/15 in AM. Cr 6.3. Discussed with Dr. Vinay Hopkins, PGY-1
--- NOTE | 2018-11-14 15:03 | CP.PCM.PN ---
Subjective - Date & Time of Evaluation Date of Evaluation: 11/14/18 Time of Evaluation: 09:00 - Subjective Subjective: Subjective: Patient seen and examined while undergoing hemodialysis. At this time still complains of upper abdominal pain. States that protonix provided no relief. Denies any SOB or chest pain. Objective: General: Well appearing and in no acute distress Heart: RRR, S1, S2, S3 Lungs: CTA b/l. No wheezes or rales. Abdomen: soft, nontender, nondistended Extremities: 1+ pitting edema in b/l lower extremities Assessment & Plan: 1. GERD: Cont Protonix and add Carafate. Recommend GI consult to r/o Lan Esophagus. Plan as per primary. 2. Pulmonary Edema: Likely secondary to fluid overload. Appears to have reso lved. Continue with MWF hemodialysis schedule. 3. COPD: taper steroids and continue nebulizer tx Objective - Vital Signs/Intake and Output Vital Signs (last 24 hours): Temp Pulse Resp BP Pulse Ox 97.6 F 81 20 141/59 L 99 11/14/18 12:25 11/14/18 12:25 11/14/18 12:25 11/14/18 12:25 11/14/18 12:25 - Medications Medications: Current Medications Albuterol Sulfate (Albuterol 0.083% Inhal Louisa (2.5 Mg/3 Ml) Ud) 2.5 mg INH RQ4 [facility] Last Admin: 11/14/18 12:55 Dose: 2.5 mg Amlodipine Besylate (Norvasc) 10 mg PO DAILY [facility] Last Admin: 11/14/18 12:39 Dose: 10 mg Aspirin (Ecotrin) 81 mg PO DAILY [facility] Last Admin: 11/14/18 12:47 Dose: 81 mg Calcitriol (Rocaltrol) 0.75 mcg PO DAILY [facility] Last Admin: 11/14/18 12:47 Dose: 0.75 mcg Carvedilol (Coreg) 25 mg PO BID [facility] Last Admin: 11/14/18 10:00 Dose: Not Given Dextrose (Dextrose 50% Inj) 0 ml IV STAT PRN; Protocol PRN Reason: Hypoglycemia Protocol Dextrose (Glutose 15) 0 gm PO ONCE PRN; Protocol PRN Reason: Hypoglycemia Protocol Glucagon (Glucagen Diagnostic Kit) 0 mg IM STAT PRN; Protocol PRN Reason: Hypoglycemia Protocol Hydralazine HCl (Apresoline) 50 mg PO TID [facility] Last Admin: 11/14/18 13:08 Dose: Not Given Dextrose (Dextrose 5% In Water 1000 Ml) 1,000 mls @ 0 mls/hr IV .Q0M PRN; Protocol PRN Reason: Hypoglycemia Protocol Insulin Human Regular (Novolin R) 0 unit SC ACHS [facility]; Protocol Last Admin: 11/14/18 12:57 Dose: 6 units Losartan Potassium (Cozaar) 50 mg PO DAILY [facility] Methylprednisolone (Solu-Medrol) 40 mg IVP Q8H [facility] Last Admin: 11/14/18 06:42 Dose: 40 mg Pantoprazole Sodium (Protonix Ec Tab) 20 mg PO DAILY [facility] Last Admin: 11/14/18 12:40 Dose: 20 mg Rosuvastatin Calcium (Crestor) 10 mg PO HS [facility] Last Admin: 11/13/18 22:50 Dose: 10 mg Sevelamer Carbonate (Renvela) 800 mg PO TIDCC [facility] Last Admin: 11/14/18 12:41 Dose: 800 mg - Labs Labs: 11/14/18 07:20 11/14/18 07:20 PT 13.6 SECONDS (9.7-12.2) H 11/11/18 00:31 INR 1.2 11/11/18 00:31 APTT 41 SECONDS (21-34) H 11/11/18 00:31 Assessment and Plan (1) COPD (chronic obstructive pulmonary disease) Status: Acute (2) ESRD needing dialysis Status: Acute (3) Pulmonary edema Status: Acute
[2018-11-15] MEDS: Albuterol 0.083% Inhal Sol (2.5 mg/3 mL) UD INH SCH ×5 (01:12→16:33)
[2018-11-15] MEDS: MethylPREDNISolone 40 mg Vial IVP SCH ×2 (01:24→07:30)
[2018-11-15] MEDS ORDERED: (Novolin R) Insulin Human Regular 100 units/ml vial SC STA (02:53)
[2018-11-15] MEDS: (Novolin R) Insulin Human Regular 100 units/ml vial SC SCH ×3 (06:41→16:38)
[2018-11-15 07:17] LABS: HEMOGLOBIN 9.2 g/dL (12.0-18.0); LYMPH # 0.3 K/uL (1.0-4.3); MEAN CELL VOLUME 83.1 fL (80.0-94.0); MEAN CORPUSCULAR HEMOGLOBIN 26.2 pg (27.0-31.0); MEAN CORPUSCULAR HGB CONC 31.5 g/dL (33.0-37.0); MEAN PLATELET VOLUME 8.3 fL (7.2-11.7); MONO # 0.6 K/uL (0.0-0.8); MONO % 6.7 % (0.0-10.0); NEUT # 8.1 K/uL (1.8-7.0); NEUT % 90.3 % (50.0-75.0); PLATELET COUNT 189 K/uL (130-400); RBC 3.53 Mil/uL (4.40-5.90); RED CELL DISTRIBUTION WIDTH 19.3 % (11.5-14.5)
[2018-11-15 08:11] LABS: ALB/GLOB RATIO 0.9 (1.0-2.1); ALBUMIN 3.7 g/dL (3.5-5.0); CALCIUM 8.4 mg/dl (8.6-10.4)
[2018-11-15 09:08] LABS: LYMPHOCYTE 2 % (20-40); MONOCYTE 4 % (0-10); NEUTROPHIL 94 % (50-75); PLATELET ESTIMATE NORMAL (NORMAL); TOTAL CELLS COUNTED 100
[2018-11-15 09:09] LABS: ANISOCYTOSIS SLIGHT; HYPOCHROMIC SLIGHT
--- NOTE | 2018-11-15 09:29 | CP.PCM.PN ---
Subjective - Date & Time of Evaluation Date of Evaluation: 11/15/18 Time of Evaluation: 09:26 - Subjective Subjective: Notes reviewed Comfortable walking around room Wants to go home Continues to tolerate diet well No distess No dyspnea at rest, no cough No fever or chills, no cp or palp No n/v/d Planned for hd this am ROS: 10 point ros negative other than reported above Objective - Vital Signs/Intake and Output Vital Signs (last 24 hours): Temp Pulse Resp BP Pulse Ox 97.6 F 92 H 20 163/74 H 96 11/15/18 08:32 11/15/18 08:32 11/15/18 08:32 11/15/18 08:32 11/15/18 08:32 - Medications Medications: Current Medications Albuterol Sulfate (Albuterol 0.083% Inhal Louisa (2.5 Mg/3 Ml) Ud) 2.5 mg INH RQ4 [facility] Last Admin: 11/15/18 07:44 Dose: 2.5 mg Amlodipine Besylate (Norvasc) 10 mg PO DAILY [facility] Last Admin: 11/14/18 12:39 Dose: 10 mg Aspirin (Ecotrin) 81 mg PO DAILY [facility] Last Admin: 11/14/18 12:47 Dose: 81 mg Calcitriol (Rocaltrol) 0.75 mcg PO DAILY [facility] Last Admin: 11/14/18 12:47 Dose: 0.75 mcg Carvedilol (Coreg) 25 mg PO BID [facility] Last Admin: 11/14/18 18:23 Dose: 25 mg Dextrose (Dextrose 50% Inj) 0 ml IV STAT PRN; Protocol PRN Reason: Hypoglycemia Protocol Dextrose (Glutose 15) 0 gm PO ONCE PRN; Protocol PRN Reason: Hypoglycemia Protocol Glucagon (Glucagen Diagnostic Kit) 0 mg IM STAT PRN; Protocol PRN Reason: Hypoglycemia Protocol Hydralazine HCl (Apresoline) 50 mg PO TID [facility] Last Admin: 11/14/18 18:23 Dose: 50 mg Dextrose (Dextrose 5% In Water 1000 Ml) 1,000 mls @ 0 mls/hr IV .Q0M PRN; Protocol PRN Reason: Hypoglycemia Protocol Insulin Human Regular (Novolin R) 0 unit SC ACHS [facility]; Protocol Last Admin: 11/15/18 06:41 Dose: 12 units Losartan Potassium (Cozaar) 50 mg PO DAILY [facility] Methylprednisolone (Solu-Medrol) 40 mg IVP Q8H [facility] Last Admin: 11/15/18 07:30 Dose: 40 mg Pantoprazole Sodium (Protonix Ec Tab) 20 mg PO DAILY [facility] Last Admin: 11/14/18 12:40 Dose: 20 mg Rosuvastatin Calcium (Crestor) 10 mg PO HS [facility] Last Admin: 11/14/18 21:37 Dose: 10 mg Sevelamer Carbonate (Renvela) 800 mg PO TIDCC [facility] Last Admin: 11/15/18 08:04 Dose: 800 mg - Labs Labs: 11/15/18 06:38 11/15/18 06:38 PT 13.6 SECONDS (9.7-12.2) H 11/11/18 00:31 INR 1.2 11/11/18 00:31 APTT 41 SECONDS (21-34) H 11/11/18 00:31 - Constitutional Appears: Well, Non-toxic - Head Exam Head Exam: ATRAUMATIC, NORMAL INSPECTION - Eye Exam Eye Exam: EOMI, Normal appearance - ENT Exam ENT Exam: Mucous Membranes Moist, Normal Oropharynx - Neck Exam Neck Exam: absent: Lymphadenopathy, Thyromegaly - Respiratory Exam Respiratory Exam: Rhonchi, NORMAL BREATHING PATTERN. absent: Wheezes - Cardiovascular Exam Cardiovascular Exam: +S1, +S2. absent: Rubs - GI/Abdominal Exam GI & Abdominal Exam: Soft, Normal Bowel Sounds - Extremities Exam Extremities Exam: Pedal Edema. absent: Joint Swelling - Neurological Exam Neurological Exam: Alert, Awake - Psychiatric Exam Psychiatric exam: Agitated, Normal Affect - Skin Skin Exam: Dry, Intact Assessment and Plan (1) COPD (chronic obstructive pulmonary disease) Status: Acute (2) ESRD needing dialysis Status: Acute (3) HTN (hypertension), malignant Status: Acute (4) Diabetes Status: Chronic - Assessment and Plan (Free Text) Assessment: Dialysis scheduled today UF as tolerated, reduce edw as outpatient Monitor bp on hd Continue current meds Abx as ordered Labs with dialysis Fluid restriction encouraged
[2018-11-15] MEDS: Pantoprazole 20 mg EC Tab PO SCH (10:00)
--- NOTE | 2018-11-15 10:24 | CARD ---
APPROVED REPORT Date of service: 11/11/2018 EKG Measurement Heart [id number] <Conclusion> Normal sinus rhythm T wave abnormality, consider lateral ischemia Abnormal ECG
[2018-11-15 15:37] VITALS: BP 160/73; PULSE 88; RESP 20; TEMP 97.7; O2SAT 96
--- NOTE | 2018-11-15 16:26 | CP.PCM.PN ---
Subjective - Date & Time of Evaluation Date of Evaluation: 11/15/18 Time of Evaluation: 14:40 - Subjective Subjective: patient seen and examined Cough and shortness of breath much improved Afebrile No chest pain Status post dialysis yesterday Inhaled steroid Protonix and Carafate Stable from pulmonary standpoint Objective - Vital Signs/Intake and Output Vital Signs (last 24 hours): Temp Pulse Resp BP Pulse Ox 97.7 F 88 20 160/73 H 96 11/15/18 15:36 11/15/18 15:36 11/15/18 15:36 11/15/18 15:36 11/15/18 15:36 - Medications Medications: Current Medications Albuterol Sulfate (Albuterol 0.083% Inhal Louisa (2.5 Mg/3 Ml) Ud) 2.5 mg INH RQ4 [facility] Last Admin: 11/15/18 11:04 Dose: Not Given Amlodipine Besylate (Norvasc) 10 mg PO DAILY [facility] Last Admin: 11/15/18 10:00 Dose: Not Given Aspirin (Ecotrin) 81 mg PO DAILY [facility] Last Admin: 11/15/18 10:00 Dose: Not Given Calcitriol (Rocaltrol) 0.75 mcg PO DAILY [facility] Last Admin: 11/15/18 10:00 Dose: Not Given Carvedilol (Coreg) 25 mg PO BID [facility] Last Admin: 11/15/18 10:00 Dose: Not Given Dextrose (Dextrose 50% Inj) 0 ml IV STAT PRN; Protocol PRN Reason: Hypoglycemia Protocol Dextrose (Glutose 15) 0 gm PO ONCE PRN; Protocol PRN Reason: Hypoglycemia Protocol Glucagon (Glucagen Diagnostic Kit) 0 mg IM STAT PRN; Protocol PRN Reason: Hypoglycemia Protocol Hydralazine HCl (Apresoline) 50 mg PO TID [facility] Last Admin: 11/15/18 13:17 Dose: 50 mg Dextrose (Dextrose 5% In Water 1000 Ml) 1,000 mls @ 0 mls/hr IV .Q0M PRN; Protocol PRN Reason: Hypoglycemia Protocol Insulin Human Regular (Novolin R) 0 unit SC ACHS [facility]; Protocol Last Admin: 11/15/18 11:30 Dose: Not Given Losartan Potassium (Cozaar) 50 mg PO DAILY [facility] Last Admin: 11/15/18 10:00 Dose: Not Given Pantoprazole Sodium (Protonix Ec Tab) 20 mg PO DAILY [facility] Last Admin: 11/15/18 10:00 Dose: Not Given Rosuvastatin Calcium (Crestor) 10 mg PO HS [facility] Last Admin: 11/14/18 21:37 Dose: 10 mg Sevelamer Carbonate (Renvela) 800 mg PO TIDCC [facility] Last Admin: 11/15/18 13:15 Dose: 800 mg - Labs Labs: 11/15/18 06:38 11/15/18 06:38 PT 13.6 SECONDS (9.7-12.2) H 11/11/18 00:31 INR 1.2 11/11/18 00:31 APTT 41 SECONDS (21-34) H 11/11/18 00:31 Assessment and Plan (1) COPD (chronic obstructive pulmonary disease) Status: Acute (2) ESRD needing dialysis Status: Acute (3) Pulmonary edema Status: Acute
--- NOTE | 2018-11-15 17:17 | CP.PCM.DIS ---
Provider - Provider Date of Admission: 11/11/18 01:54 Attending physician: David Mclean MD Consults: 11/11/18 07:00 Nephrology Consult Routine Comment: hyperkalemia, esrd needing hd, pulm edema Consulting Provider: Bob Sands Consulting Physician: Bob Sands Reason for Consult: hyperkalemia, esrd needing hd, pulm edema 11/11/18 13:52 Cardiology Consult Routine Comment: Consulting Provider: Juan J Ha Consulting Physician: Juan J Ha Reason for Consult: CHF exacerbation with pl effusion, ESRD, hyperkalemia 11/11/18 15:08 Pulmonology Consult Routine Comment: Consulting Provider: Herson Walker Consulting Physician: Herson Walker Reason for Consult: CHF exacerbation, ESRD on dialysis, remains short of breath s/p HD Time Spent in preparation of Discharge (in minutes): 31 Hospital Course - Lab Results Lab Results: Micro Results 11/11/18 00:52 Blood Blood Culture - Preliminary NO GROWTH AFTER 4 DAYS 11/11/18 00:51 Blood Blood Culture - Preliminary NO GROWTH AFTER 4 DAYS Most Recent Lab Values WBC 9.0 K/uL (4.8-10.8) 11/15/18 06:38 RBC 3.53 Mil/uL (4.40-5.90) L 11/15/18 06:38 Hgb 9.2 g/dL (12.0-18.0) L 11/15/18 06:38 Hct 29.3 % (35.0-51.0) L 11/15/18 06:38 MCV 83.1 fL (80.0-94.0) 11/15/18 06:38 MCH 26.2 pg (27.0-31.0) L 11/15/18 06:38 MCHC 31.5 g/dL (33.0-37.0) L 11/15/18 06:38 RDW 19.3 % (11.5-14.5) H 11/15/18 06:38 Plt Count 189 K/uL (130-400) 11/15/18 06:38 MPV 8.3 fL (7.2-11.7) 11/15/18 06:38 Neut % (Auto) 90.3 % (50.0-75.0) H 11/15/18 06:38 Lymph % (Auto) 3.0 % (20.0-40.0) L 11/15/18 06:38 Hall % (Auto) 6.7 % (0.0-10.0) 11/15/18 06:38 Eos % (Auto) 0.0 % (0.0-4.0) 11/15/18 06:38 Baso % (Auto) 0.0 % (0.0-2.0) 11/15/18 06:38 Neut # (Auto) 8.1 K/uL (1.8-7.0) H 11/15/18 06:38 Lymph # (Auto) 0.3 K/uL (1.0-4.3) L 11/15/18 06:38 Hall # (Auto) 0.6 K/uL (0.0-0.8) 11/15/18 06:38 Eos # (Auto) 0.0 K/uL (0.0-0.7) 11/15/18 06:38 Baso # (Auto) 0.0 K/uL (0.0-0.2) 11/15/18 06:38 Neutrophils % (Manual) 94 % (50-75) H 11/15/18 06:38 Band Neutrophils % 1 % (0-2) 11/14/18 07:20 Lymphocytes % (Manual) 2 % (20-40) L 11/15/18 06:38 Reactive Lymphs % 1 % (0-0) H 11/13/18 07:21 Monocytes % (Manual) 4 % (0-10) 11/15/18 06:38 Platelet Estimate Normal (NORMAL) 11/15/18 06:38 Large Platelets Present 11/13/18 07:21 Hypochromasia (manual) Slight 11/15/18 06:38 Poikilocytosis (manual Slight 11/14/18 07:20 Anisocytosis (manual) Slight 11/15/18 06:38 Target Cells Slight 11/13/18 07:21 Ovalocytes Slight 11/13/18 07:21 PT 13.6 SECONDS (9.7-12.2) H 11/11/18 00:31 INR 1.2 11/11/18 00:31 APTT 41 SECONDS (21-34) H 11/11/18 00:31 Puncture Site Rr 11/10/18 23:43 pCO2 34 mm/Hg (35-45) L 11/10/18 23:43 pO2 47 mm/Hg (80-100) L 11/10/18 23:43 HCO3 28.0 mmol/L (21-28) 11/10/18 23:43 ABG pH 7.51 (7.35-7.45) H 11/10/18 23:43 ABG Total CO2 28.1 mmol/L (22-28) H 11/10/18 23:43 ABG O2 Saturation 81.9 % (95-98) L 11/10/18 23:43 ABG Base Excess 4.3 mmol/L (-2.0-3.0) H 11/10/18 23:43 Good Test Pos 11/10/18 23:43 ABG Potassium 5.1 mmol/L (3.6-5.2) 11/10/18 23:43 Sodium 135.0 mmol/l (132-148) 11/10/18 23:43 Chloride 100.0 mmol/L (98-107) 11/10/18 23:43 Glucose 168 mg/dl (75-110) H 11/10/18 23:43 Lactate 0.9 mmol/L (0.7-2.1) 11/10/18 23:43 Liter Flow 5.0 11/10/18 23:43 Sodium 132 mmol/L (132-148) 11/15/18 06:38 Potassium 3.9 mmol/L (3.6-5.2) 11/15/18 06:38 Chloride 93 mmol/L (98-107) L 11/15/18 06:38 Carbon Dioxide 28 mmol/L (22-30) 11/15/18 06:38 Anion Gap 15 (10-20) 11/15/18 06:38 BUN 45 mg/dL (9-20) H 11/15/18 06:38 Creatinine 4.5 mg/dL (0.8-1.5) H 11/15/18 06:38 Est GFR ( Amer) 16 11/15/18 06:38 Est GFR (Non-Af Amer) 13 11/15/18 06:38 POC Glucose (mg/dL) > 500 mg/dL (65-110) H* 11/15/18 16:31 Random Glucose 483 mg/dL (75-110) H* 11/15/18 06:38 Calcium 8.4 mg/dl (8.6-10.4) L 11/15/18 06:38 Phosphorus 4.0 mg/dL (2.5-4.5) 11/15/18 06:38 Magnesium 2.2 mg/dL (1.6-2.3) 11/15/18 06:38 Total Bilirubin 0.5 mg/dL (0.2-1.3) 11/15/18 06:38 AST 18 U/L (17-59) 11/15/18 06:38 ALT 18 U/L (21-72) L 11/15/18 06:38 Alkaline Phosphatase 179 U/L (38-126) H 11/15/18 06:38 Total Creatine Kinase 167 U/L (55-170) 11/13/18 02:59 CK-MB (Mass) 1.29 ng/mL (0.0-3.38) 11/13/18 02:59 Troponin I 0.0150 ng/mL (0.00-0.120) 11/13/18 02:59 NT-Pro-B Natriuret Pep 55509 pg/mL (0-900) H 11/10/18 23:42 Total Protein 7.7 g/dL (6.3-8.3) 11/15/18 06:38 Albumin 3.7 g/dL (3.5-5.0) 11/15/18 06:38 Globulin 4.0 gm/dL (2.2-3.9) H 11/15/18 06:38 Albumin/Globulin Ratio 0.9 (1.0-2.1) L 11/15/18 06:38 Procalcitonin 0.37 NG/ML (0.19-0.49) 11/11/18 10:14 Free T4 1.49 ng/dL (0.78-2.19) 11/15/18 06:38 TSH 3rd Generation 0.66 mIU/L (0.46-4.68) 11/15/18 06:38 Arterial Blood Potassium 5.1 mmol/L (3.6-5.2) 11/10/18 23:43 Influenza Typ A,B (EIA) Negative for flu a/b (NEGATIVE) 11/10/18 23:08 - Hospital Course Hospital Course: History and Physical: Patient is a 63 year old male with pmhx of ESRD, CHF, HTN, HLD who presents to the ED today with complaints of progressively worsening SOB. Pt reports cough and SOB first began approximately 1 week ago, and was given antibiotics for a suspected PNA by PMD with no improvement in symptoms. Pt reports today the SOB was so severe, he missed his dialysis session and called EMS to bring him in for evaluation. Pt also reports epigastric pain x1 month for which his PMD recently prescribed an antacid with improvement in symptoms. Pt denies headache, dizziness, chest pain, nausea, vomiting. Pt reports he is compliant with medications and HD as ordered. Hospital Course: Patient was admitted for pulmonary edema likely secondary to CHF exacerbation, ESRD, PNA. CXR on admission showed Moderate to large loculated left and small right pleural effusion. Prominent consolidative opacification in the mid to lower lung zone as well as the right lung base. Cardiomegaly. Left axillary stent in place (see full report). Patient was started on BIPAP, Lasix and IV antibiotics. Nephrology was consulted for hemodialysis. CT chest showed Cardiomegaly with small to medium-sized pericardial effusion. There are bilateral effusions and bibasilar atelectasis left greater than right. Hazy ground-glass opacity seen in the lower lobes with more discrete nodular opacity scattered throughout the upper lobes. Septal thickening. Collectively the find ings are consistent with pulmonary edema/CHF however the possibility of superimposed pneumonia less likely though not completely excluded (see full report). Patient left the hospital against medical advice. The below prescriptions were provided to the patient in addition to a 5 day prednisone taper. All questions and concerns were addressed. This is just a brief summary of the hospital course, please refer to EMR for further details. Discharge Exam - Head Exam Head Exam: ATRAUMATIC, NORMOCEPHALIC Discharge Plan - Discharge Medications Prescriptions: Albuterol HFA [Ventolin HFA 90 mcg/actuation (8 g)] 2 puff IH [id number] PRN #1 inhaler PRN Reason: severe shortness of breath amLODIPine [Norvasc] 10 mg PO DAILY #30 tab Aspirin 81 mg PO DAILY #30 tab.chew Calcitriol 0.75 mcg PO DAILY #30 capsule Carvedilol [Coreg] 25 mg PO BID #60 tab Fluticasone/Vilanterol [Breo Ellipta 100-25 Mcg INH] 1 puff IH DAILY 30 Days #1 inhaler hydrALAZINE [Apresoline] 50 mg PO TID #90 tab Losartan [Cozaar] 50 mg PO DAILY #30 tab Pantoprazole Sodium [Protonix] 40 mg PO DAILY #30 ect Rosuvastatin Calcium [Crestor] 10 mg PO HS #30 tab Sevelamer [Renagel] 800 mg PO TID #90 tab - Follow Up Plan Condition: FAIR Disposition: AGAINST MEDICAL ADVICE Instructions: Dialysis Diet , Heart Failure, Adult (DC), Chest Pain (DC), Exacerbation of COPD (DC), End Stage Kidney Disease (DC) Additional Instructions: -Follow your dialysis schedule MWF -Follow up with your primary care for coordination of your healthcare and for referral to have your lung volumes measured by a hot mill shearer -You must STOP smoking, call [phone] for help in your area -Please continue medications as prescribed Referrals: Herson Walker MD [Staff Provider] - Familia Pang MD [Staff Provider] -
--- NOTE | 2018-11-15 17:20 | CARD ---
APPROVED REPORT Date of service: 11/12/2018 EKG Measurement Heart [id number] <Conclusion> Normal sinus rhythm ST & T wave abnormality, consider lateral ischemia Abnormal ECG
--- NOTE | 2018-11-15 17:24 | CARD ---
APPROVED REPORT Date of service: 11/12/2018 EKG Measurement Heart [id number] <Conclusion> Normal sinus rhythm Cannot rule out Anterior infarct, age undetermined ST & T wave abnormality, consider lateral ischemia Abnormal ECG
--- NOTE | 2018-11-16 21:39 | CP.PCM.PN ---
Subjective - Date & Time of Evaluation Date of Evaluation: 11/16/18 Time of Evaluation: 15:30 - Subjective Subjective: Pulmonary Folow up, Covering Dr Walker The Patient was seen and examined at the bedside, Medical records reviewed, and management issues were discussed and formulated with the house staff. Events reviewed Objective - Vital Signs/Intake and Output Vital Signs (last 24 hours): Temp Pulse Resp BP Pulse Ox 97.7 F 88 20 160/73 H 96 11/15/18 15:36 11/15/18 15:36 11/15/18 15:36 11/15/18 15:36 11/15/18 15:36 - Labs Labs: 11/15/18 06:38 11/15/18 06:38 PT 13.6 SECONDS (9.7-12.2) H 11/11/18 00:31 INR 1.2 11/11/18 00:31 APTT 41 SECONDS (21-34) H 11/11/18 00:31
== END 2018-11-15 17:24 | disposition left against medical advice (07) | DRG 291 ==
LOC: C.ER 22:48 → C.9E 11-11 01:54 → C.6T 11-11 13:42
PROVIDERS: ADMIT Internal Medicine; ATTEND Internal Medicine
PROC: 5A09457 Assistance with Respiratory Ventilation, 24-96 Consecutive Hours, Continuous Positive Airway Pressure (ICD-10-PCS; 2018-11-10)
PROC: 5A1D70Z Performance of Urinary Filtration, Intermittent, Less than 6 Hours Per Day (ICD-10-PCS; principal; 2018-11-11)
PROC: 5A1D70Z Performance of Urinary Filtration, Intermittent, Less than 6 Hours Per Day (ICD-10-PCS; 2018-11-12)
PROC: 5A1D70Z Performance of Urinary Filtration, Intermittent, Less than 6 Hours Per Day (ICD-10-PCS; 2018-11-14)
PROC: 5A1D70Z Performance of Urinary Filtration, Intermittent, Less than 6 Hours Per Day (ICD-10-PCS; 2018-11-15)
DX: I13.2 Hypertensive heart and chronic kidney disease with heart failure and with stage 5 chronic kidney disease, or end stage renal disease (principal); J18.9 Pneumonia, unspecified organism; N18.6 End stage renal disease; J44.0 Chronic obstructive pulmonary disease with (acute) lower respiratory infection; I50.9 Heart failure, unspecified; E87.5 Hyperkalemia; E10.22 Type 1 diabetes mellitus with diabetic chronic kidney disease; K21.9 Gastro-esophageal reflux disease without esophagitis; D64.9 Anemia, unspecified; E78.5 Hyperlipidemia, unspecified; E78.00 Pure hypercholesterolemia, unspecified; F17.210 Nicotine dependence, cigarettes, uncomplicated; Z99.2 Dependence on renal dialysis; Z98.41 Cataract extraction status, right eye; Z79.4 Long term (current) use of insulin; Z86.73 Personal history of transient ischemic attack (TIA), and cerebral infarction without residual deficits

== ENCOUNTER 2018-11-22 19:35 | Inpatient (IN) | payer MEDICARE, MEDICAID ==
[2018-11-22 19:35] VITALS: BMI 24.0
[2018-11-22 20:37] LABS: BASO # 0.1 K/uL (0.0-0.2); BASO % 0.8 % (0.0-2.0); HEMOGLOBIN 8.4 g/dL (12.0-18.0); LYMPH # 0.8 K/uL (1.0-4.3); LYMPH % 11.4 % (20.0-40.0); MEAN CELL VOLUME 82.6 fL (80.0-94.0); MEAN CORPUSCULAR HEMOGLOBIN 27.1 pg (27.0-31.0); MEAN CORPUSCULAR HGB CONC 32.8 g/dL (33.0-37.0); MEAN PLATELET VOLUME 7.6 fL (7.2-11.7); MONO # 0.5 K/uL (0.0-0.8); MONO % 7.7 % (0.0-10.0); NEUT # 5.4 K/uL (1.8-7.0); NEUT % 80.1 % (50.0-75.0); NRBC % 0.1 % (0.0-2.0); RBC 3.12 Mil/uL (4.40-5.90); RED CELL DISTRIBUTION WIDTH 19.8 % (11.5-14.5); WHITE BLOOD COUNT 6.8 K/uL (4.8-10.8)
[2018-11-22 20:48] LABS: ALB/GLOB RATIO 0.9 (1.0-2.1); ALBUMIN 3.5 g/dL (3.5-5.0); CALCIUM 7.7 mg/dl (8.6-10.4)
--- NOTE | 2018-11-22 20:52 | C.PDOC ---
History Of Present Illness 63 year old male with PMHx of COPD, diabetes, and ESRD on dialysis presents to the ED complaining of constant shortness of breath for 3 days. Reports he has been using his inhaler with no relief. States he was admitted on 11/11/18 for respiratory distress. Patient left AMA on 11/15/18. Patient has dialysis on Mondays, Wednesdays, and Fridays. Last dialysis was yesterday and today. Denies symptoms of respiratory distress, fever, chills, cough, n/v/d, diaphoresis, or any other complaints. Reports he continues to smoke. Time Seen by Provider: 11/22/18 19:58 Chief Complaint (Nursing): Shortness Of Breath History Per: Patient History/Exam Limitations: no limitations Onset/Duration Of Symptoms: Days (3), Persistent Current Symptoms Are (Timing): Still Present Current Respiratory Medications: Prednisone Associated Symptoms: denies: Fever, Chills, Sweating, Chest Pain, Dizziness, Light-headedness Reports Recently: Hospitalized Additional History Per: Prior Records Past Medical History Reviewed: Historical Data, Nursing Documentation, Vital Signs Vital Signs: Last Vital Signs Temp 97.6 F 11/22/18 19:44 Pulse 88 11/22/18 19:44 Resp 20 11/22/18 19:52 BP 183/79 H 11/22/18 19:44 Pulse Ox 100 11/22/18 19:44 - Medical History PMH: Anemia, CHF, HTN, Hypercholesterolemia, End Stage Renal Disease, Chronic Kidney Disease, TIA (MAYBE) Other Surgeries: Hx of surgeries - [facility] Procedures (11/11/18) ASSISTANCE WITH RESPIRATORY VENTILATION, 24-96 HRS, CPAP (11/11/18) ASSISTANCE WITH RESPIRATORY VENTILATION, <24 HRS, CPAP (09/15/15) BYPASS LEFT RADIAL ARTERY TO LOWER ARM VEIN, OPEN APPROACH (09/15/15) INSERT INFUSION DEV IN R INT JUGULAR VEIN, PERC (09/15/15) PERFORMANCE OF URINARY FILTRATION, MULTIPLE (09/15/15) PERFORMANCE OF URINARY FILTRATION, SINGLE (12/19/15) REMOVAL OF INFUSION DEVICE FROM LOWER VEIN, PERC APPROACH (09/15/15) TRANSFUSE NONAUT RED BLOOD CELLS IN PERIPH VEIN, PERC (09/15/15) ULTRASONOGRAPHY OF RIGHT JUGULAR VEINS, GUIDANCE (09/15/15) Family History: States: No Known Family Hx - Social History Hx Alcohol Use: No Hx Substance Use: No - Immunization History Hx Tetanus Toxoid Vaccination: Yes Hx Influenza Vaccination: No Hx Pneumococcal Vaccination: Yes Review Of Systems Constitutional: Negative for: Fever, Chills Cardiovascular: Negative for: Chest Pain Respiratory: Positive for: Shortness of Breath. Negative for: Cough Gastrointestinal: Negative for: Nausea, Vomiting, Diarrhea Physical Exam - Physical Exam Appears: Non-toxic, No Acute Distress, Other (comfortable) Skin: Warm, Dry, No Rash, Other (graft on LUE with positive bruit and thrill) Head: Normacephalic Eye(s): bilateral: Normal Inspection Nose: Normal Oral Mucosa: Moist Neck: Supple Chest: Symmetrical Cardiovascular: Rhythm Regular, Murmur (loud systolic murmur ) Respiratory: Rales (basilar crackles ), No Rhonchi, No Wheezing Gastrointestinal/Abdominal: Soft, No Tenderness Extremity: Normal ROM, Pedal Edema (B/L lower extremity edema 1+ ) Pulses: Left Dorsalis Pedis: Normal, Right Dorsalis Pedis: Normal Neurological/Psych: Oriented x3, Normal Speech Gait: Steady ED Course And Treatment - Laboratory Results Result Diagrams: 11/23/18 13:54 11/23/18 13:54 Lab Results: Total Bilirubin 0.9 mg/dL (0.2-1.3) 11/22/18 20:26 AST 25 U/L (17-59) 11/22/18 20:26 ALT 31 U/L (21-72) 11/22/18 20:26 Alkaline Phosphatase 154 U/L (38-126) H 11/22/18 20:26 Total Protein 7.4 g/dL (6.3-8.3) 11/22/18 20:26 Albumin 3.5 g/dL (3.5-5.0) 11/22/18 20:26 Globulin 3.8 gm/dL (2.2-3.9) 11/22/18 20:26 Albumin/Globulin Ratio 0.9 (1.0-2.1) L 11/22/18 20:26 ECG: Interpreted By Me, Viewed By Me ECG Rhythm: Sinus Rhythm Interpretation Of ECG: Normal intervals, 1 aVL T wave inversion. No change from EKG from 11/12/18 Rate From EC O2 Sat by Pulse Oximetry: 100 (RA) Pulse Ox Interpretation: Normal - Radiology CXR: Interpreted by Me, Viewed By Me CXR Interpretation: Yes: Other (Left pleural effusion, PVC, Right side Infiltrate, improved from CXR on 11/11/18 ) Medical Decision Making Medical Decision Making: Plan - EKG - Bloodwork - CXR - Blood cultures - Medrol [address] Debra Alvarez, Hospitalist. Accepts patient under his service. Disposition Counseled Patient/Family Regarding: Studies Performed, Diagnosis - Disposition Disposition: HOSPITALIZED Disposition Time: 21:27 Condition: STABLE - Clinical Impression Clinical Impression: Chronic congestive heart failure, ESRD (end stage renal disease), COPD (chronic obstructive pulmonary disease) - Scribe Statement The provider has reviewed the documentation as recorded by the Scribjanki Medel All medical record entries made by the Scribe were at my direction and personally dictated by me. I have reviewed the chart and agree that the record accurately reflects my personal performance of the history, physical exam, medical decision making, and the department course for this patient. I have also personally directed, reviewed, and agree with the discharge instructions and disposition.
[2018-11-22 20:55] LABS: TROPONIN I 0.027 ng/mL (0.00-0.120)
[2018-11-22] MEDS ORDERED: (Novolin R) Insulin Human Regular 100 units/ml vial IVP ONE (21:07)
[2018-11-22] MEDS ORDERED: (Novolin R) Insulin Human Regular 100 units/ml vial ONE (21:28)
[2018-11-22] MEDS ORDERED: Albuterol-Ipratrop 3 mg / 0.5 (3 ml) UD ONE (22:04)
[2018-11-22] MEDS ORDERED: Albuterol-Ipratrop 3 mg / 0.5 (3 ml) UD INH STA (22:04)
[2018-11-22] MEDS ORDERED: Labetalol 5mg/ml (4ml) IVP ONE (23:00)
[2018-11-22] MEDS ORDERED: Glucagon Recombinant 1 mg Inj IM PRN (23:26)
[2018-11-22] MEDS ORDERED: Dextrose 50% SYRINGE Inj (50 ml) IV PRN (23:26)
--- NOTE | 2018-11-23 02:18 | CP.PCM.HP ---
<Omaira Carson - Last Filed: 11/23/18 02:29> History of Present Illness - History of Present Illness History of Present Illness: Medicine History and Physical CC: SOB HPI: 63 y/o male with PMHx of COPD, CHF, ESRD on HD MWF, DM, and anemia in the ED for SOB happening today. Patient used inhaler three times without relief. He states he has two different inhalers at home one every 6 hours and one ever 24 hours. The SOB happens at rest and today happened when he was laying down. Patient states he has a breathing machine at home he uses every 4 hours and that helps a little. Patient denies having home oxygen. Patient denies chest pain, palpitations, cough, wheezing, nausea, vomiting, diarrhea, fevers, chills, night sweats. Of note, patient admitted 11/11-11/15/18 for respiratory distress and documented to have left AMA. Patient received 125 mg solumedrol and 6U novolin in the ED. Patient not on oxygen in the ED. ROS: as per HPI PMHx: as per HPI FHx: PSHx: SocHx: Patient smokes cigarettes for many years. Denies EtOH and illicit drugs. Patient claims to be a good [employer] going to a [employer]. Meds: breo ellipta, albuterol, amlodipine 10 mg daily, sevelamer 800 daily, calcitrial 0.25 mcg daily, carvedilol 25 mg daily, rosuvastatin 10 mg daily, ASA 81 mg daily, lactulose akanksha, ammonium All: NKDA Present on Admission - Present on Admission Any Indicators Present on Admission: Yes Past Patient History - Infectious Disease Hx of Infectious Diseases: None - Past Medical History & Family History Past Medical History?: Yes - Past Social History Smoking Status: Light Smoker < 10 Cigarettes Daily - CARDIAC Hx Congestive Heart Failure: Yes Hx Hypercholesterolemia: Yes Hx Hypertension: Yes - PULMONARY Hx Respiratory Disorders: No - NEUROLOGICAL Hx Transient Ischemic Attacks (TIA): Yes (MAYBE) - HEENT Hx HEENT Problems: Yes Hx Cataracts: Yes (S/P Rt cataract surgery) - RENAL Hx Chronic Kidney Disease: Yes - ENDOCRINE/METABOLIC Hx Endocrine Disorders: No - HEMATOLOGICAL/ONCOLOGICAL Hx Anemia: Yes - INTEGUMENTARY Hx Dermatological Problems: No - MUSCULOSKELETAL/RHEUMATOLOGICAL Hx Musculoskeletal Disorders: No Hx Falls: No - GASTROINTESTINAL Hx Gastrointestinal Disorders: No - GENITOURINARY/GYNECOLOGICAL Hx Genitourinary Disorders: No - PSYCHIATRIC Hx Substance Use: No - SURGICAL HISTORY Hx Surgeries: Yes Hx Arteriovenous Shunt: Yes (left arm / LEFT WRIST) Hx Cataract Extraction: Yes (RT. EYE) - ANESTHESIA Hx Anesthesia: Yes Hx Anesthesia Reactions: No Hx Malignant Hyperthermia: No Meds Allergies/Adverse Reactions: Allergies Allergy/AdvReac Type Severity Reaction Status Date / Time No Known Allergies Allergy Verified 11/10/18 23:07 Physical Exam - Constitutional Appears: Well - Head Exam Head Exam: ATRAUMATIC, NORMOCEPHALIC - Eye Exam Eye Exam: EOMI, Normal appearance - ENT Exam Additional comments: Poor dentition - Neck Exam Neck exam: Positive for: Normal Inspection - Respiratory Exam Respiratory Exam: Decreased Breath Sounds, Wheezes (mild scattered wheezing) - Cardiovascular Exam Cardiovascular Exam: REGULAR RHYTHM - GI/Abdominal Exam GI & Abdominal Exam: Normal Bowel Sounds, Soft - Extremities Exam Additional comments: LE 2+ pitting edema b/l - Neurological Exam Neurological exam: Alert, Normal Gait (observed patient walk to get water on the floor without issues), Oriented x3 - Psychiatric Exam Psychiatric exam: Normal Affect, Normal Mood - Skin Skin Exam: Dry, Intact, Normal Color, Warm Results - Vital Signs Recent Vital Signs: Last Vital Signs Temp 97.8 F 11/22/18 23:26 Pulse 78 11/22/18 23:26 Resp 20 11/22/18 23:26 BP 193/82 H 11/22/18 23:26 Pulse Ox 100 11/22/18 23:26 - Labs Result Diagrams: 11/22/18 20:26 11/22/18 20:26 Labs: Laboratory Results - last 24 hr 11/22/18 11/22/18 11/22/18 20:26 20:26 22:26 WBC 6.8 RBC 3.12 L Hgb 8.4 L Hct 25.7 L MCV 82.6 MCH 27.1 MCHC 32.8 L RDW 19.8 H Plt Count 218 MPV 7.6 Neut % (Auto) 80.1 H Lymph % (Auto) 11.4 L Hartley % (Auto) 7.7 Eos % (Auto) 0.0 Baso % (Auto) 0.8 Neut # (Auto) 5.4 Lymph # (Auto) 0.8 L Hartley # (Auto) 0.5 Eos # (Auto) 0.0 Baso # (Auto) 0.1 Sodium 132 Potassium 3.7 Chloride 88 L Carbon Dioxide 36 H Anion Gap 12 BUN 27 H Creatinine 2.5 H Est GFR ( Amer) 32 Est GFR (Non-Af Amer) 26 POC Glucose (mg/dL) 284 H Random Glucose 430 H* Calcium 7.7 L Magnesium 1.8 Total Bilirubin 0.9 AST 25 ALT 31 Alkaline Phosphatase 154 H Troponin I 0.0270 NT-Pro-B Natriuret Pep 55235 H Total Protein 7.4 Albumin 3.5 Globulin 3.8 Albumin/Globulin Ratio 0.9 L Assessment & Plan - Assessment and Plan (Free Text) Assessment: 63 y/o male with PMHx of COPD, CHF, ESRD on HD MWF, DM, and anemia in the ED for SOB. Admitted for COPD exacerbation. COPD exacerbation -CXR - pending official read. Flattened diaphragm and venous congestion. Left sided opacity also present in past CXR. -solumedrol 40 mg IV daily -duonebs q6h scheduled -maintain spo2 > 92%, patient currently on RA CHF -BNP 38,800 -patient not on home diuretics; will hold off on diuresis for now ESRD -on HD MWF -admitting BUN/Cr 27/2.5, per RN patient came straight from HD to the ED -patient on home sevelamer 800 daily; hold off and replete electrolytes as needed -Dr. Pang consulted for in house HD orders and further recs DM -medium dose ISS -accuchecks ACHS -hypoglycemic protocol Anemia -trend CBC qAM case d/w Dr. Debra Castano Law PGY1 <José Miguel Alvarez - Last Filed: 11/23/18 06:54> Results - Vital Signs Recent Vital Signs: Last Vital Signs Temp 97.9 F 11/22/18 23:55 Pulse 92 H 11/23/18 04:30 Resp 20 11/22/18 23:55 BP 163/85 H 11/23/18 01:25 Pulse Ox 96 11/23/18 02:33 - Labs Result Diagrams: 11/22/18 20:26 11/22/18 20:26 Labs: Laboratory Results - last 24 hr 11/22/18 11/22/18 11/22/18 20:26 20:26 22:26 WBC 6.8 RBC 3.12 L Hgb 8.4 L Hct 25.7 L MCV 82.6 MCH 27.1 MCHC 32.8 L RDW 19.8 H Plt Count 218 MPV 7.6 Neut % (Auto) 80.1 H Lymph % (Auto) 11.4 L Hartley % (Auto) 7.7 Eos % (Auto) 0.0 Baso % (Auto) 0.8 Neut # (Auto) 5.4 Lymph # (Auto) 0.8 L Hartley # (Auto) 0.5 Eos # (Auto) 0.0 Baso # (Auto) 0.1 Sodium 132 Potassium 3.7 Chloride 88 L Carbon Dioxide 36 H Anion Gap 12 BUN 27 H Creatinine 2.5 H Est GFR ( Amer) 32 Est GFR (Non-Af Amer) 26 POC Glucose (mg/dL) 284 H Random Glucose 430 H* Calcium 7.7 L Magnesium 1.8 Total Bilirubin 0.9 AST 25 ALT 31 Alkaline Phosphatase 154 H Troponin I 0.0270 NT-Pro-B Natriuret Pep 05857 H Total Protein 7.4 Albumin 3.5 Globulin 3.8 Albumin/Globulin Ratio 0.9 L 11/23/18 02:02 WBC RBC Hgb Hct MCV MCH MCHC RDW Plt Count MPV Neut % (Auto) Lymph % (Auto) Hartley % (Auto) Eos % (Auto) Baso % (Auto) Neut # (Auto) Lymph # (Auto) Hartley # (Auto) Eos # (Auto) Baso # (Auto) Sodium Potassium Chloride Carbon Dioxide Anion Gap BUN Creatinine Est GFR ( Amer) Est GFR (Non-Af Amer) POC Glucose (mg/dL) 360 H Random Glucose Calcium Magnesium Total Bilirubin AST ALT Alkaline Phosphatase Troponin I NT-Pro-B Natriuret Pep Total Protein Albumin Globulin Albumin/Globulin Ratio Assessment & Plan - Date & Time Date: 11/23/18 (I have seen and examined the patient. I agree with the findings and plan of care as documented by Dr. Carson. Patient with COPD exacberation. Solumedrol, nebs, and oxygen. ESRD on dialysis. Consult to nephro to resume normal dialysis schedule. History of diabetes. NISS and accuchecks. Monitor for acute changes.) Time: 06:52 Attending/Attestation - Attestation I have personally seen and examined this patient.: Yes I have fully participated in the care of the patient.: Yes I have reviewed all pertinent clinical information: Yes
[2018-11-23] MEDS: Albuterol-Ipratrop 3 mg / 0.5 (3 ml) UD INH SCH ×4 (03:11→18:40)
[2018-11-23] MEDS ORDERED: Labetalol 5mg/ml (4ml) IVP ONE (07:47)
[2018-11-23] MEDS: (Novolin R) Insulin Human Regular 100 units/ml vial SC SCH ×2 (08:12→13:24)
--- NOTE | 2018-11-23 09:00 | RAD ---
Date of service: 11/22/2018 HISTORY: SOB COMPARISON: None available. FINDINGS: LUNGS: Persistent pulmonary venous congestive changes with dense opacity in the left mid to lower lung field likely representing some combination of atelectasis/infiltrate and moderately large effusion. Small right-sided effusion felt be present.. Changes appear to have improved slightly. PLEURA: As above. No pneumothorax apparent. CARDIOVASCULAR: Mild aortic atherosclerotic calcification present. Heart size difficult to assess due to silhouetting of the left cardiac border . OSSEOUS STRUCTURES: No significant abnormalities. VISUALIZED UPPER ABDOMEN: Normal. OTHER FINDINGS: None. IMPRESSION: Persistent pulmonary venous congestive changes with dense opacity in the left mid to lower lung field likely representing some combination of atelectasis/infiltrate and moderately large effusion. Small right-sided effusion felt be present.. Changes appear to have improved slightly.
[2018-11-23] MEDS ORDERED: MethylPREDNISolone 40 mg Vial IV SCH (10:00)
[2018-11-23] MEDS ORDERED: Labetalol 5mg/ml (4ml) IVP STA ×2 (10:35→21:09)
[2018-11-23] MEDS ORDERED: Nitroglycerin 2% Ointment Foilpak UD TOP ONE (12:00)
--- NOTE | 2018-11-23 12:08 | CP.PCM.PN ---
<Hernan Mosley - Last Filed: 11/23/18 12:08> Subjective - Date & Time of Evaluation Date of Evaluation: 11/23/18 Time of Evaluation: 11:43 - Subjective Subjective: PGY-1 Medicine Progress Note for Dr. Gautam's service Patient seen and examined at bedside. Complains of distended abdomen and feeling constipated. Admits to fevers, chills, sob, n/v, constipation or diarrhea, and dysuria. Objective - Vital Signs/Intake and Output Vital Signs (last 24 hours): Temp Pulse Resp BP Pulse Ox 97.4 F L 80 20 212/89 H 96 11/23/18 07:30 11/23/18 11:35 11/23/18 07:30 11/23/18 11:20 11/23/18 07:30 - Medications Medications: Current Medications Albuterol/Ipratropium (Duoneb 3 Mg/0.5 Mg (3 Ml) Ud) 3 ml INH RQ6 [facility] Last Admin: 11/23/18 07:24 Dose: 3 ml Amlodipine Besylate (Norvasc) 10 mg PO DAILY [facility] Last Admin: 11/23/18 09:30 Dose: 10 mg Carvedilol (Coreg) 25 mg PO BID [facility] Last Admin: 11/23/18 09:30 Dose: 25 mg Dextrose (Dextrose 50% Inj) 0 ml IV STAT PRN; Protocol PRN Reason: Hypoglycemia Protocol Dextrose (Glutose 15) 0 gm PO ONCE PRN; Protocol PRN Reason: Hypoglycemia Protocol Glucagon (Glucagen Diagnostic Kit) 0 mg IM STAT PRN; Protocol PRN Reason: Hypoglycemia Protocol Hydralazine HCl (Apresoline) 50 mg PO TID [facility] Dextrose (Dextrose 5% In Water 1000 Ml) 1,000 mls @ 0 mls/hr IV .Q0M PRN; Protocol PRN Reason: Hypoglycemia Protocol Insulin Human Regular (Novolin R) 0 unit SC ACHS [facility]; Protocol Last Admin: 11/23/18 08:12 Dose: 10 units Losartan Potassium (Cozaar) 50 mg PO DAILY [facility] Methylprednisolone (Solu-Medrol) 40 mg IV DAILY [facility] Last Admin: 11/23/18 09:31 Dose: 40 mg Nitroglycerin (Nitro-Bid 2% Oint) 1 ea TOP ONCE ONE Stop: 11/23/18 11:42 Rosuvastatin Calcium (Crestor) 5 mg PO HS [facility] Last Admin: 11/22/18 23:39 Dose: 5 mg Sodium Phosphate (Fleet Enema) 135 ml GA ONCE ONE Stop: 11/23/18 11:43 - Labs Labs: 11/22/18 20:26 11/22/18 20:26 - Constitutional Appears: Non-toxic, No Acute Distress - Head Exam Head Exam: NORMAL INSPECTION, NORMOCEPHALIC - Eye Exam Eye Exam: EOMI, Normal appearance. absent: Nystagmus, Scleral icterus - ENT Exam ENT Exam: Mucous Membranes Moist - Respiratory Exam Respiratory Exam: Decreased Breath Sounds, Clear to Ausculation Bilateral, NORMAL BREATHING PATTERN. absent: Rales, Rhonchi, Wheezes - Cardiovascular Exam Cardiovascular Exam: REGULAR RHYTHM, +S1, +S2. absent: Tachycardia - GI/Abdominal Exam GI & Abdominal Exam: Distended, Soft, Normal Bowel Sounds. absent: Firm, Guarding, Rigid, Tenderness - Extremities Exam Extremities Exam: Normal Inspection. absent: Calf Tenderness, Pedal Edema - Neurological Exam Neurological Exam: Alert, Awake, Oriented x3 - Psychiatric Exam Psychiatric exam: Agitated - Skin Skin Exam: Dry, Intact, Normal Color Assessment and Plan - Assessment and Plan (Free Text) Assessment: HTN crisis Nephrology Consulted: Dr. Tommie KIRKPATRICK HD schedule, s/p extra dialysis on saturday Hydralazine 50mg po bid Coazaar 50mg po daily Coreg 25mg po bid Norvasc 10mg po daily Nitropaste 1/2 inch x 1 Goal is to reduce SBP less than 25% HHD 2gm, fluid restriction Diabetes meillitus A1c pending, lipid panel pending ACHS, hypoglycemic protocol Aspirin 81mg Novolog sliding scale ACHS increasing sugars 2/2 to solumedrol (COPD treatment) Fluid overload control blood pressure COPD bronchitis Duoneb q6h prn Solumedrol 40mg IV q12 hr 2L NC repeat cxr after dialysis ESRD on dialysis Nephrology Tommie KIRKPATRICK saturday shcedule CHF Echo on 11-11 shows normal systolic fcn but Aortic valve stenosis Aspirin 81mg daily See HTN crisis meds Tobacco use disorder Nicotine patch daily Aortic Valve stenosis Cardiology consulted: Leandro- appreciate recs Anemia pending iron studies EPO with dialysis recommended, nephro on board GI ppx: Protonix 40mg IV q6h DVT ppx: Heparin 5000 units sc q12 PGY-1 Hernan Mosley Medical Management discussed with Dr. Gautam <DainSwathi Gibson - Last Filed: 11/30/18 08:30> Objective - Vital Signs/Intake and Output Vital Signs (last 24 hours): Temp Pulse Resp BP Pulse Ox 97.5 F L 69 16 143/68 99 11/28/18 16:35 11/28/18 16:35 11/28/18 16:35 11/28/18 16:35 11/28/18 16:35 - Labs Labs: 11/28/18 07:27 11/28/18 07:27 PT 12.8 SECONDS (9.7-12.2) H 11/24/18 11:02 INR 1.2 11/24/18 11:02 APTT 30 SECONDS (21-34) 11/24/18 11:02 Attending/Attestation - Attestation I have personally seen and examined this patient.: Yes I have fully participated in the care of the patient.: Yes I have reviewed all pertinent clinical information, including history, physical exam and plan: Yes Notes (Text): This is late computer entry for 11/23/18. Patient seen, examine, and case discussed with day-time resident. Patient is noncompliant with medications, reports his blood pressure at home is usually 170-200s systolic. Patient reports he does not have diabetes/take diabetic medications. We will optimize his blood pressure regiment. Patient has had bowel movement today. Cardiology to eval the aortic insuffienicy to see if will need further intervention in the future. Note: patient does not have CHF it is an error; he has aortic stenosis.
[2018-11-23] MEDS: (Novolog) Insulin Aspart, Recombinant 100 u/ml 10 ml vial SC SCH ×3 (12:14→22:01)
[2018-11-23 14:01] LABS: BASO % 0.3 % (0.0-2.0); HEMOGLOBIN 8.7 g/dL (12.0-18.0); LYMPH # 0.5 K/uL (1.0-4.3); LYMPH % 5.6 % (20.0-40.0); MEAN CELL VOLUME 84.1 fL (80.0-94.0); MEAN CORPUSCULAR HEMOGLOBIN 27.3 pg (27.0-31.0); MEAN CORPUSCULAR HGB CONC 32.4 g/dL (33.0-37.0); MEAN PLATELET VOLUME 7.8 fL (7.2-11.7); MONO # 0.3 K/uL (0.0-0.8); MONO % 3.3 % (0.0-10.0); NEUT # 8.2 K/uL (1.8-7.0); NEUT % 90.8 % (50.0-75.0); NRBC % 0.1 % (0.0-2.0); PLATELET COUNT 219 K/uL (130-400); RBC 3.18 Mil/uL (4.40-5.90); RED CELL DISTRIBUTION WIDTH 20.2 % (11.5-14.5); WHITE BLOOD COUNT 9.1 K/uL (4.8-10.8)
[2018-11-23 14:24] LABS: LYMPHOCYTE 8 % (20-40); MONOCYTE 2 % (0-10); NEUTROPHIL 90 % (50-75); TOTAL CELLS COUNTED 100
[2018-11-23 14:25] LABS: ANISOCYTOSIS MODERATE; BURR CELLS SLIGHT; HYPOCHROMIC SLIGHT; OVALOCYTES SLIGHT; PLATELET ESTIMATE NORMAL (NORMAL); POIKILOCYTOSIS SLIGHT; TEARDROP CELLS SLIGHT
--- NOTE | 2018-11-23 14:41 | CP.PCM.CON ---
History of Present Illness - History of Present Illness History of Present Illness: patient seen and examined consult dictated probable chf from excessive fluid ingestion inface of cardiomyopathy and valvular heart disease can not r/o effect of copd on symptomatogy to schedule dialysis with ultrafiltration in AM fluid restriction would reduce steroids quickly Past Patient History - Infectious Disease Hx of Infectious Diseases: None - Past Medical History & Family History Past Medical History?: Yes - Past Social History Smoking Status: Light Smoker < 10 Cigarettes Daily - CARDIAC Hx Congestive Heart Failure: Yes Hx Hypercholesterolemia: Yes Hx Hypertension: Yes - PULMONARY Hx Respiratory Disorders: No - NEUROLOGICAL Hx Transient Ischemic Attacks (TIA): Yes (MAYBE) - HEENT Hx HEENT Problems: Yes Hx Cataracts: Yes (S/P Rt cataract surgery) - RENAL Hx Chronic Kidney Disease: Yes - ENDOCRINE/METABOLIC Hx Endocrine Disorders: No - HEMATOLOGICAL/ONCOLOGICAL Hx Anemia: Yes - INTEGUMENTARY Hx Dermatological Problems: No - MUSCULOSKELETAL/RHEUMATOLOGICAL Hx Musculoskeletal Disorders: No Hx Falls: No - GASTROINTESTINAL Hx Gastrointestinal Disorders: No - GENITOURINARY/GYNECOLOGICAL Hx Genitourinary Disorders: No - PSYCHIATRIC Hx Substance Use: No - SURGICAL HISTORY Hx Surgeries: Yes Hx Arteriovenous Shunt: Yes (left arm / LEFT WRIST) Hx Cataract Extraction: Yes (RT. EYE) - ANESTHESIA Hx Anesthesia: Yes Hx Anesthesia Reactions: No Hx Malignant Hyperthermia: No Meds Allergies/Adverse Reactions: Allergies Allergy/AdvReac Type Severity Reaction Status Date / Time No Known Allergies Allergy Verified 11/10/18 23:07 - Medications Medications: Current Medications Albuterol/Ipratropium (Duoneb 3 Mg/0.5 Mg (3 Ml) Ud) 3 ml INH RQ6 [facility] Last Admin: 11/23/18 13:50 Dose: 3 ml Amlodipine Besylate (Norvasc) 10 mg PO DAILY [facility] Last Admin: 11/23/18 09:30 Dose: 10 mg Carvedilol (Coreg) 25 mg PO BID [facility] Last Admin: 11/23/18 09:30 Dose: 25 mg Dextrose (Dextrose 50% Inj) 0 ml IV STAT PRN; Protocol PRN Reason: Hypoglycemia Protocol Dextrose (Glutose 15) 0 gm PO ONCE PRN; Protocol PRN Reason: Hypoglycemia Protocol Fluticasone/Vilanterol (Breo Ellipta 100-25 Mcg Inh) 1 puff INH RQD [facility] Glucagon (Glucagen Diagnostic Kit) 0 mg IM STAT PRN; Protocol PRN Reason: Hypoglycemia Protocol Hydralazine HCl (Apresoline) 50 mg PO TID [facility] Last Admin: 11/23/18 13:43 Dose: 50 mg Dextrose (Dextrose 5% In Water 1000 Ml) 1,000 mls @ 0 mls/hr IV .Q0M PRN; Protocol PRN Reason: Hypoglycemia Protocol Insulin Aspart (Novolog) 0 unit SC ACHS [facility]; Protocol Last Admin: 11/23/18 12:14 Dose: 10 units Losartan Potassium (Cozaar) 50 mg PO DAILY [facility] Last Admin: 11/23/18 11:52 Dose: 50 mg Methylprednisolone (Solu-Medrol) 40 mg IV Q12 [facility] Rosuvastatin Calcium (Crestor) 5 mg PO HS [facility] Last Admin: 11/22/18 23:39 Dose: 5 mg Results - Vital Signs Recent Vital Signs: Last Vital Signs Temp 97.4 F L 11/23/18 07:30 Pulse 77 11/23/18 13:00 Resp 20 11/23/18 07:30 BP 174/66 H 11/23/18 13:00 Pulse Ox 96 11/23/18 07:30 - Labs Result Diagrams: 11/23/18 13:54 11/22/18 20:26 Labs: Laboratory Results - last 24 hr 11/22/18 11/22/18 11/22/18 20:26 20:26 22:26 WBC 6.8 RBC 3.12 L Hgb 8.4 L Hct 25.7 L MCV 82.6 MCH 27.1 MCHC 32.8 L RDW 19.8 H Plt Count 218 MPV 7.6 Neut % (Auto) 80.1 H Lymph % (Auto) 11.4 L [place] % (Auto) 7.7 Eos % (Auto) 0.0 Baso % (Auto) 0.8 Neut # (Auto) 5.4 Lymph # (Auto) 0.8 L [place] # (Auto) 0.5 Eos # (Auto) 0.0 Baso # (Auto) 0.1 Neutrophils % (Manual) Lymphocytes % (Manual) Monocytes % (Manual) Platelet Estimate Hypochromasia (manual) Poikilocytosis (manual Anisocytosis (manual) Tear Drop Cells Ovalocytes [place] Cells Sodium 132 Potassium 3.7 Chloride 88 L Carbon Dioxide 36 H Anion Gap 12 BUN 27 H Creatinine 2.5 H Est GFR ( Amer) 32 Est GFR (Non-Af Amer) 26 POC Glucose (mg/dL) 284 H Random Glucose 430 H* Hemoglobin A1c Calcium 7.7 L Magnesium 1.8 Total Bilirubin 0.9 AST 25 ALT 31 Alkaline Phosphatase 154 H Troponin I 0.0270 NT-Pro-B Natriuret Pep 42719 H Total Protein 7.4 Albumin 3.5 Globulin 3.8 Albumin/Globulin Ratio 0.9 L 11/23/18 11/23/18 11/23/18 02:02 06:26 11:30 WBC RBC Hgb Hct MCV MCH MCHC RDW Plt Count MPV Neut % (Auto) Lymph % (Auto) [place] % (Auto) Eos % (Auto) Baso % (Auto) Neut # (Auto) Lymph # (Auto) [place] # (Auto) Eos # (Auto) Baso # (Auto) Neutrophils % (Manual) Lymphocytes % (Manual) Monocytes % (Manual) Platelet Estimate Hypochromasia (manual) Poikilocytosis (manual Anisocytosis (manual) Tear Drop Cells Ovalocytes [place] Cells Sodium Potassium Chloride Carbon Dioxide Anion Gap BUN Creatinine Est GFR ( Amer) Est GFR (Non-Af Amer) POC Glucose (mg/dL) 360 H > 500 H* > 500 H* Random Glucose Hemoglobin A1c Calcium Magnesium Total Bilirubin AST ALT Alkaline Phosphatase Troponin I NT-Pro-B Natriuret Pep Total Protein Albumin Globulin Albumin/Globulin Ratio 11/23/18 11/23/18 13:54 13:54 WBC 9.1 RBC 3.18 L Hgb 8.7 L Hct 26.8 L MCV 84.1 MCH 27.3 MCHC 32.4 L RDW 20.2 H Plt Count 219 MPV 7.8 Neut % (Auto) 90.8 H Lymph % (Auto) 5.6 L [place] % (Auto) 3.3 Eos % (Auto) 0.0 Baso % (Auto) 0.3 Neut # (Auto) 8.2 H Lymph # (Auto) 0.5 L [place] # (Auto) 0.3 Eos # (Auto) 0.0 Baso # (Auto) 0.0 Neutrophils % (Manual) 90 H Lymphocytes % (Manual) 8 L Monocytes % (Manual) 2 Platelet Estimate Normal Hypochromasia (manual) Slight Poikilocytosis (manual Slight Anisocytosis (manual) Moderate Tear Drop Cells Slight Ovalocytes Slight [place] Cells Slight Sodium Potassium Chloride Carbon Dioxide Anion Gap BUN Creatinine Est GFR ( Amer) Est GFR (Non-Af Amer) POC Glucose (mg/dL) Random Glucose Hemoglobin A1c 6.8 H Calcium Magnesium Total Bilirubin AST ALT Alkaline Phosphatase Troponin I NT-Pro-B Natriuret Pep Total Protein Albumin Globulin Albumin/Globulin Ratio Assessment & Plan (1) COPD (chronic obstructive pulmonary disease) Status: Acute (2) ESRD (end stage renal disease) Status: Acute (3) Hyperparathyroidism due to renal insufficiency Status: Acute (4) Pulmonary edema Status: Acute (5) 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
[2018-11-23 14:44] LABS: ALBUMIN 3.6 g/dL (3.5-5.0); CALCIUM 7.7 mg/dl (8.6-10.4)
[2018-11-23] MEDS ORDERED: Labetalol 25mg/5ml Syringe IVP STA (21:07)
[2018-11-23] MEDS: MethylPREDNISolone 40 mg Vial IV SCH (22:01)
--- NOTE | 2018-11-23 22:22 | CP.PCM.CON ---
History of Present Illness - History of Present Illness History of Present Illness: CC: SOB HPI: 63 y/o male with PMHx of COPD, CHF, ESRD on HD MWF, DM, and anemia in the ED for SOB happening today. Patient used inhaler three times without relief. He states he has two different inhalers at home one every 6 hours and one ever 24 hours. The SOB happens at rest and today happened when he was laying down. Patient states he has a breathing machine at home he uses every 4 hours and that helps a little. Patient denies having home oxygen. Patient denies chest pain, palpitations, cough, wheezing, nausea, vomiting, diarrhea, fevers, chills, night sweats. Of note, patient admitted 11/11-11/15/18 for respiratory distress and documented to have left AMA. Patient received 125 mg solumedrol and 6U novolin in the ED. Patient not on oxygen in the ED. ROS: as per HPI PMHx: as per HPI FHx: PSHx: SocHx: Patient smokes cigarettes for many years. Denies EtOH and illicit drugs. Patient claims to be a good Sh[employer] going to a religious. Meds: breo ellipta, albuterol, amlodipine 10 mg daily, sevelamer 800 daily, calcitrial 0.25 mcg daily, carvedilol 25 mg daily, rosuvastatin 10 mg daily, ASA 81 mg daily, lactulose akanksha, ammonium All: NKDA Present on Admission - Present on Admission Any Indicators Present on Admission: Yes Physical Exam - Constitutional Appears: Well - Head Exam Head Exam: ATRAUMATIC, NORMOCEPHALIC - Eye Exam Eye Exam: EOMI, Normal appearance - ENT Exam Additional comments: Poor dentition - Neck Exam Neck exam: Positive for: Normal Inspection - Respiratory Exam Respiratory Exam: Decreased Breath Sounds, Wheezes (mild scattered wheezing) - Cardiovascular Exam Cardiovascular Exam: REGULAR RHYTHM - GI/Abdominal Exam GI & Abdominal Exam: Normal Bowel Sounds, Soft - Extremities Exam Additional comments: LE 2+ pitting edema b/l - Neurological Exam Neurological exam: Alert, Normal Gait (observed patient walk to get water on the floor without issues), Oriented x3 - Psychiatric Exam Psychiatric exam: Normal Affect, Normal Mood - Skin Skin Exam: Dry, Intact, Normal Color, Warm Assessment & Plan - Assessment and Plan (Free Text) Assessment: 63 y/o male with PMHx of COPD, CHF, ESRD on HD MWF, DM, and anemia in the ED for SOB. Admitted for COPD exacerbation. COPD exacerbation -CXR - pending official read. Flattened diaphragm and venous congestion. Left sided opacity also present in past CXR. -solumedrol 40 mg IV daily -duonebs q6h scheduled -maintain spo2 > 92%, patient currently on RA CHF -BNP 38,800 -patient not on home diuretics; will hold off on diuresis for now ESRD -on HD MWF -admitting BUN/Cr 27/2.5, per RN patient came straight from HD to the ED -patient on home sevelamer 800 daily; hold off and replete electrolytes as needed -Dr. Pang consulted for in house HD orders and further recs DM -medium dose ISS -accuchecks ACHS -hypoglycemic protocol Anemia -trend CBC qAM GI consult for epigastric pain Stress test Saturday in am r/o Ischemic CAD Patient has moderate Past Patient History - Infectious Disease Hx of Infectious Diseases: None - Past Medical History & Family History Past Medical History?: Yes - Past Social History Smoking Status: Light Smoker < 10 Cigarettes Daily - CARDIAC Hx Congestive Heart Failure: Yes Hx Hypercholesterolemia: Yes Hx Hypertension: Yes - PULMONARY Hx Respiratory Disorders: No - NEUROLOGICAL Hx Transient Ischemic Attacks (TIA): Yes (MAYBE) - HEENT Hx HEENT Problems: Yes Hx Cataracts: Yes (S/P Rt cataract surgery) - RENAL Hx Chronic Kidney Disease: Yes - ENDOCRINE/METABOLIC Hx Endocrine Disorders: No - HEMATOLOGICAL/ONCOLOGICAL Hx Anemia: Yes - INTEGUMENTARY Hx Dermatological Problems: No - MUSCULOSKELETAL/RHEUMATOLOGICAL Hx Musculoskeletal Disorders: No Hx Falls: No - GASTROINTESTINAL Hx Gastrointestinal Disorders: No - GENITOURINARY/GYNECOLOGICAL Hx Genitourinary Disorders: No - PSYCHIATRIC Hx Substance Use: No - SURGICAL HISTORY Hx Surgeries: Yes Hx Arteriovenous Shunt: Yes (left arm / LEFT WRIST) Hx Cataract Extraction: Yes (RT. EYE) - ANESTHESIA Hx Anesthesia: Yes Hx Anesthesia Reactions: No Hx Malignant Hyperthermia: No Meds Allergies/Adverse Reactions: Allergies Allergy/AdvReac Type Severity Reaction Status Date / Time No Known Allergies Allergy Verified 11/10/18 23:07 - Medications Medications: Current Medications Albuterol/Ipratropium (Duoneb 3 Mg/0.5 Mg (3 Ml) Ud) 3 ml INH RQ6 [facility] Last Admin: 11/23/18 18:40 Dose: 3 ml Amlodipine Besylate (Norvasc) 10 mg PO DAILY [facility] Last Admin: 11/23/18 09:30 Dose: 10 mg Carvedilol (Coreg) 25 mg PO BID [facility] Last Admin: 11/23/18 20:23 Dose: 25 mg Dextrose (Dextrose 50% Inj) 0 ml IV STAT PRN; Protocol PRN Reason: Hypoglycemia Protocol Dextrose (Glutose 15) 0 gm PO ONCE PRN; Protocol PRN Reason: Hypoglycemia Protocol Fluticasone/Vilanterol (Breo Ellipta 100-25 Mcg Inh) 1 puff INH RQD [facility] Glucagon (Glucagen Diagnostic Kit) 0 mg IM STAT PRN; Protocol PRN Reason: Hypoglycemia Protocol Hydralazine HCl (Apresoline) 50 mg PO TID [facility] Last Admin: 11/23/18 18:41 Dose: 50 mg Dextrose (Dextrose 5% In Water 1000 Ml) 1,000 mls @ 0 mls/hr IV .Q0M PRN; Protocol PRN Reason: Hypoglycemia Protocol Insulin Aspart (Novolog) 0 unit SC ACHS [facility]; Protocol Last Admin: 11/23/18 22:01 Dose: 4 units Losartan Potassium (Cozaar) 50 mg PO DAILY [facility] Last Admin: 11/23/18 11:52 Dose: 50 mg Methylprednisolone (Solu-Medrol) 40 mg IV Q12 [facility] Last Admin: 11/23/18 22:01 Dose: 40 mg Rosuvastatin Calcium (Crestor) 5 mg PO HS [facility] Last Admin: 11/23/18 22:00 Dose: 5 mg Results - Vital Signs Recent Vital Signs: Last Vital Signs Temp 97.3 F L 11/23/18 15:47 Pulse 73 11/23/18 16:00 Resp 20 11/23/18 15:47 BP 176/88 H 11/23/18 20:23 Pulse Ox 100 11/23/18 15:47 - Labs Result Diagrams: 11/23/18 13:54 11/23/18 13:54 Labs: Laboratory Results - last 24 hr 11/22/18 11/23/18 11/23/18 22:26 02:02 06:26 WBC RBC Hgb Hct MCV MCH MCHC RDW Plt Count MPV Neut % (Auto) Lymph % (Auto) [place] % (Auto) Eos % (Auto) Baso % (Auto) Neut # (Auto) Lymph # (Auto) [place] # (Auto) Eos # (Auto) Baso # (Auto) Neutrophils % (Manual) Lymphocytes % (Manual) Monocytes % (Manual) Platelet Estimate Hypochromasia (manual) Poikilocytosis (manual Anisocytosis (manual) Tear Drop Cells Ovalocytes [place] Cells Sodium Potassium Chloride Carbon Dioxide Anion Gap BUN Creatinine Est GFR ( Amer) Est GFR (Non-Af Amer) POC Glucose (mg/dL) 284 H 360 H > 500 H* Random Glucose Hemoglobin A1c Calcium Phosphorus Magnesium Total Bilirubin AST ALT Alkaline Phosphatase NT-Pro-B Natriuret Pep Total Protein Albumin Globulin Albumin/Globulin Ratio 11/23/18 11/23/18 11/23/18 11:30 13:54 13:54 WBC 9.1 RBC 3.18 L Hgb 8.7 L Hct 26.8 L MCV 84.1 MCH 27.3 MCHC 32.4 L RDW 20.2 H Plt Count 219 MPV 7.8 Neut % (Auto) 90.8 H Lymph % (Auto) 5.6 L [place] % (Auto) 3.3 Eos % (Auto) 0.0 Baso % (Auto) 0.3 Neut # (Auto) 8.2 H Lymph # (Auto) 0.5 L [place] # (Auto) 0.3 Eos # (Auto) 0.0 Baso # (Auto) 0.0 Neutrophils % (Manual) 90 H Lymphocytes % (Manual) 8 L Monocytes % (Manual) 2 Platelet Estimate Normal Hypochromasia (manual) Slight Poikilocytosis (manual Slight Anisocytosis (manual) Moderate Tear Drop Cells Slight Ovalocytes Slight [place]acle Cells Slight Sodium 131 L Potassium 4.0 Chloride 88 L Carbon Dioxide 28 Anion Gap 20 BUN 45 H Creatinine 3.8 H Est GFR ( Amer) 19 Est GFR (Non-Af Amer) 16 POC Glucose (mg/dL) > 500 H* Random Glucose 521 H* D Hemoglobin A1c Calcium 7.7 L Phosphorus 2.8 Magnesium 1.8 Total Bilirubin 0.6 AST 20 ALT 29 Alkaline Phosphatase 168 H NT-Pro-B Natriuret Pep 18007 H Total Protein 7.4 Albumin 3.6 Globulin 3.7 Albumin/Globulin Ratio 1.0 01/20/19 01/20/19 01/20/19 13:54 14:54 16:39 WBC RBC Hgb Hct MCV MCH MCHC RDW Plt Count MPV Neut % (Auto) Lymph % (Auto) [place] % (Auto) Eos % (Auto) Baso % (Auto) Neut # (Auto) Lymph # (Auto) [place] # (Auto) Eos # (Auto) Baso # (Auto) Neutrophils % (Manual) Lymphocytes % (Manual) Monocytes % (Manual) Platelet Estimate Hypochromasia (manual) Poikilocytosis (manual Anisocytosis (manual) Tear Drop Cells Ovalocytes [place] Cells Sodium Potassium Chloride Carbon Dioxide Anion Gap BUN Creatinine Est GFR ( Amer) Est GFR (Non-Af Amer) POC Glucose (mg/dL) 404 H* 322 H Random Glucose Hemoglobin A1c 6.8 H Calcium Phosphorus Magnesium Total Bilirubin AST ALT Alkaline Phosphatase NT-Pro-B Natriuret Pep Total Protein Albumin Globulin Albumin/Globulin Ratio 11/23/18 21:30 WBC RBC Hgb Hct MCV MCH MCHC RDW Plt Count MPV Neut % (Auto) Lymph % (Auto) [place] % (Auto) Eos % (Auto) Baso % (Auto) Neut # (Auto) Lymph # (Auto) [place] # (Auto) Eos # (Auto) Baso # (Auto) Neutrophils % (Manual) Lymphocytes % (Manual) Monocytes % (Manual) Platelet Estimate Hypochromasia (manual) Poikilocytosis (manual Anisocytosis (manual) Tear Drop Cells Ovalocytes [place]acle Cells Sodium Potassium Chloride Carbon Dioxide Anion Gap BUN Creatinine Est GFR ( Amer) Est GFR (Non-Af Amer) POC Glucose (mg/dL) 429 H* Random Glucose Hemoglobin A1c Calcium Phosphorus Magnesium Total Bilirubin AST ALT Alkaline Phosphatase NT-Pro-B Natriuret Pep Total Protein Albumin Globulin Albumin/Globulin Ratio
[2018-11-24] MEDS ORDERED: (Novolog) Insulin Aspart, Recombinant 100 u/ml 10 ml vial SC ONE (02:38)
[2018-11-24] MEDS: Albuterol-Ipratrop 3 mg / 0.5 (3 ml) UD INH SCH ×4 (02:59→20:14)
--- NOTE | 2018-11-24 06:20 | CON ---
DATE: 11/23/2018 Bob Sands MD
[2018-11-24 07:47] LABS: BASO % 0.2 % (0.0-2.0); HEMOGLOBIN 8.8 g/dL (12.0-18.0); LYMPH # 0.5 K/uL (1.0-4.3); MEAN CELL VOLUME 83.8 fL (80.0-94.0); MEAN CORPUSCULAR HEMOGLOBIN 27.6 pg (27.0-31.0); MEAN CORPUSCULAR HGB CONC 32.9 g/dL (33.0-37.0); MEAN PLATELET VOLUME 8.1 fL (7.2-11.7); MONO # 0.5 K/uL (0.0-0.8); MONO % 4.2 % (0.0-10.0); NEUT # 9.6 K/uL (1.8-7.0); NEUT % 90.6 % (50.0-75.0); NRBC % 0.1 % (0.0-2.0); PLATELET COUNT 238 K/uL (130-400); RED CELL DISTRIBUTION WIDTH 19.9 % (11.5-14.5); WHITE BLOOD COUNT 10.6 K/uL (4.8-10.8)
[2018-11-24 08:10] LABS: ALBUMIN 3.7 g/dL (3.5-5.0); CALCIUM 7.7 mg/dl (8.6-10.4)
[2018-11-24] MEDS: (Novolog) Insulin Aspart, Recombinant 100 u/ml 10 ml vial SC SCH ×4 (08:13→22:31)
--- NOTE | 2018-11-24 08:51 | CP.PCM.PN ---
Subjective - Date & Time of Evaluation Date of Evaluation: 11/24/18 Time of Evaluation: 08:48 - Subjective Subjective: PGY-[address] Pollard's service Patient s/e at bedside. States he has unable to have a good bowel movement even after enema. Denies fevers, chills, chest pain, sob, n/v, constipation or diarrhea, and dysuria. Objective - Vital Signs/Intake and Output Vital Signs (last 24 hours): Temp Pulse Resp BP Pulse Ox 98 F 82 20 178/81 H 100 11/23/18 23:45 11/24/18 07:09 11/23/18 23:45 11/23/18 23:45 11/24/18 01:31 - Medications Medications: Current Medications Albuterol/Ipratropium (Duoneb 3 Mg/0.5 Mg (3 Ml) Ud) 3 ml INH RQ6 [facility] Last Admin: 11/24/18 07:22 Dose: 3 ml Amlodipine Besylate (Norvasc) 10 mg PO DAILY [facility] Last Admin: 11/23/18 09:30 Dose: 10 mg Carvedilol (Coreg) 25 mg PO BID [facility] Last Admin: 11/23/18 20:23 Dose: 25 mg Dextrose (Dextrose 50% Inj) 0 ml IV STAT PRN; Protocol PRN Reason: Hypoglycemia Protocol Dextrose (Glutose 15) 0 gm PO ONCE PRN; Protocol PRN Reason: Hypoglycemia Protocol Fluticasone/Vilanterol (Breo Ellipta 100-25 Mcg Inh) 1 puff INH RQD [facility] Glucagon (Glucagen Diagnostic Kit) 0 mg IM STAT PRN; Protocol PRN Reason: Hypoglycemia Protocol Hydralazine HCl (Apresoline) 50 mg PO TID [facility] Last Admin: 11/23/18 18:41 Dose: 50 mg Dextrose (Dextrose 5% In Water 1000 Ml) 1,000 mls @ 0 mls/hr IV .Q0M PRN; Protocol PRN Reason: Hypoglycemia Protocol Insulin Aspart (Novolog) 0 unit SC ACHS [facility]; Protocol Last Admin: 11/24/18 08:13 Dose: 12 units Insulin Glargine (Lantus) 5 unit SC HS [facility] Losartan Potassium (Cozaar) 50 mg PO DAILY [facility] Last Admin: 11/23/18 11:52 Dose: 50 mg Methylprednisolone (Solu-Medrol) 40 mg IV Q12 [facility] Last Admin: 11/23/18 22:01 Dose: 40 mg Rosuvastatin Calcium (Crestor) 5 mg PO HS [facility] Last Admin: 11/23/18 22:00 Dose: 5 mg - Labs Labs: 11/24/18 07:17 11/24/18 07:17 - Constitutional Appears: Non-toxic, No Acute Distress - Head Exam Head Exam: NORMAL INSPECTION, NORMOCEPHALIC - Eye Exam Eye Exam: EOMI, Normal appearance. absent: Nystagmus, Scleral icterus - ENT Exam ENT Exam: Mucous Membranes Moist - Respiratory Exam Respiratory Exam: Decreased Breath Sounds, Clear to Ausculation Bilateral, NORMAL BREATHING PATTERN. absent: Rales, Rhonchi, Wheezes - Cardiovascular Exam Cardiovascular Exam: REGULAR RHYTHM, +S1, +S2. absent: Tachycardia - GI/Abdominal Exam GI & Abdominal Exam: Distended, Soft, Normal Bowel Sounds. absent: Firm, Guarding, Rigid, Tenderness Additional comments: absolutely no tenderness to deep palpation + bowel sounds; +soft; no pain to palpation on epigastric region. - Extremities Exam Extremities Exam: Normal Inspection Additional comments: AVF place with + thrill - Neurological Exam Neurological Exam: Alert, Awake, Oriented x3 - Psychiatric Exam Psychiatric exam: Normal Affect, Normal Mood - Skin Skin Exam: Dry, Intact, Normal Color Assessment and Plan - Assessment and Plan (Free Text) Assessment: Patient is a 63 yo male w/ PMH of COPD, ESRD on HD MWF, HTN, DM, and anemia admitted to hospital for shortness of breath. HTN crisis Nephrology Consulted: Dr. Pang- [facility] HD schedule, s/p extra dialysis on saturday pending dialysis today Hydralazine 100mg po tid Clonidine 0.1mg po daily Coazaar 50mg po daily Coreg 25mg po bid Norvasc 10mg po daily Nitropaste 1/2 inch x 1 Goal is to reduce SBP less than 25% HHD 2gm, fluid restriction Abdominal Pain GI consulted: Dr. Marie- [facility] in AM, NPO at midnight likely fluid overload protonix 1mg po tid Reglan 5mg IVP q6 Miralax po bid Docusate 100mg po tid very unlikely the abdominal pain is related to gi pathology, more likely patient has fluid overload and constipation 2/2 distention from fluid COPD bronchitis Duoneb q6h prn Solumedrol 40mg IV q12 hr 2L NC repeat cxr after dialysis AV stenosis Cardiology Consulted: Dr. Reeves- stress test possible for 11/25. Hyponatremia likely 2/2 hyperglycemia Diabetes meillitus Endo consulted: Dr. Hitesh livingston appreciated A1c 6.5, lipid panel pending ACHS, hypoglycemic protocol Aspirin 81mg Lantus 5 units while solumedrol is active Novolog sliding scale ACHS increasing sugars 2/2 to solumedrol (COPD treatment) Fluid overload control blood pressure via meds and dialysis ESRD on dialysis Nephrology [facility] saturday shcedule CHF Echo on 11-11 shows normal systolic fcn but Aortic valve stenosis, in prior notes it states CHF but this is incorrect Aspirin 81mg daily See HTN crisis meds Tobacco use disorder Nicotine patch daily Aortic Valve stenosis Cardiology consulted: Shante livingston Anemia pending iron studies EPO with dialysis recommended, nephro on board GI ppx: Protonix 40mg IV q6h DVT ppx: Heparin 5000 units sc q12 PGY-1 [facility] Medical Management discussed with Dr. Pollard
[2018-11-24 09:59] LABS: ANISOCYTOSIS MODERATE; BANDS 4 % (0-2); LYMPHOCYTE 7 % (20-40); MONOCYTE 4 % (0-10); NEUTROPHIL 85 % (50-75); PLATELET ESTIMATE NORMAL (NORMAL); TOTAL CELLS COUNTED 100
[2018-11-24 10:00] LABS: HYPOCHROMIC SLIGHT
[2018-11-24] MEDS: Belladonna-Phenobarbital PO SCH ×3 (10:43→20:09)
[2018-11-24] MEDS: MethylPREDNISolone 40 mg Vial IV SCH ×2 (10:44→22:30)
[2018-11-24 11:26] LABS: INR 1.2; PROTHROMBIN TIME 12.8 SECONDS (9.7-12.2)
[2018-11-24 11:27] LABS: AMYLASE 64 U/L (30-110); LIPASE 78 U/L (23-300)
--- NOTE | 2018-11-24 11:30 | CP.PCM.PN ---
Subjective - Date & Time of Evaluation Date of Evaluation: 11/24/18 Time of Evaluation: 11:27 - Subjective Subjective: Seen at dialysis Trying to UF 3300ml HTN increased Advised on fluid intake Objective - Vital Signs/Intake and Output Vital Signs (last 24 hours): Temp Pulse Resp BP Pulse Ox 97.5 F L 86 20 190/95 H 100 11/24/18 09:30 11/24/18 09:30 11/24/18 09:30 11/24/18 09:30 11/24/18 08:52 - Medications Medications: Current Medications Albuterol/Ipratropium (Duoneb 3 Mg/0.5 Mg (3 Ml) Ud) 3 ml INH RQ6 [facility] Last Admin: 11/24/18 07:22 Dose: 3 ml Amlodipine Besylate (Norvasc) 10 mg PO DAILY [facility] Last Admin: 11/23/18 09:30 Dose: 10 mg Belladonna/Phenobarbital () 1 tab PO TID [facility] Last Admin: 11/24/18 10:43 Dose: Not Given Carvedilol (Coreg) 25 mg PO BID [facility] Last Admin: 11/24/18 10:42 Dose: Not Given Dextrose (Dextrose 50% Inj) 0 ml IV STAT PRN; Protocol PRN Reason: Hypoglycemia Protocol Dextrose (Glutose 15) 0 gm PO ONCE PRN; Protocol PRN Reason: Hypoglycemia Protocol Docusate Sodium (Colace) 100 mg PO TID [facility] Fluticasone/Vilanterol (Breo Ellipta 100-25 Mcg Inh) 1 puff INH RQD [facility] Glucagon (Glucagen Diagnostic Kit) 0 mg IM STAT PRN; Protocol PRN Reason: Hypoglycemia Protocol Hydralazine HCl (Apresoline) 50 mg PO TID [facility] Last Admin: 11/24/18 10:42 Dose: Not Given Dextrose (Dextrose 5% In Water 1000 Ml) 1,000 mls @ 0 mls/hr IV .Q0M PRN; Protocol PRN Reason: Hypoglycemia Protocol Insulin Aspart (Novolog) 0 unit SC ACHS [facility]; Protocol Last Admin: 11/24/18 08:13 Dose: 12 units Insulin Glargine (Lantus) 5 unit SC HS [facility] Losartan Potassium (Cozaar) 50 mg PO DAILY [facility] Last Admin: 11/23/18 11:52 Dose: 50 mg Methylprednisolone (Solu-Medrol) 40 mg IV Q12 [facility] Last Admin: 11/24/18 10:44 Dose: Not Given Metoclopramide HCl (Reglan) 5 mg IVP Q6H [facility] Last Admin: 11/24/18 10:44 Dose: Not Given Rosuvastatin Calcium (Crestor) 5 mg PO HS [facility] Last Admin: 11/23/18 22:00 Dose: 5 mg - Labs Labs: 11/24/18 07:17 11/24/18 07:17 PT 12.8 SECONDS (9.7-12.2) H 11/24/18 11:02 INR 1.2 11/24/18 11:02 APTT 30 SECONDS (21-34) 11/24/18 11:02 - Constitutional Appears: In Acute Distress, Chronically Ill - Head Exam Head Exam: ATRAUMATIC, NORMAL INSPECTION - Eye Exam Eye Exam: EOMI, Normal appearance - Neck Exam Neck Exam: Normal Inspection. absent: Tenderness - Respiratory Exam Respiratory Exam: Clear to Ausculation Bilateral, NORMAL BREATHING PATTERN - Cardiovascular Exam Cardiovascular Exam: REGULAR RHYTHM, +S1 - GI/Abdominal Exam GI & Abdominal Exam: Soft. absent: Tenderness - Extremities Exam Extremities Exam: Normal Inspection. absent: Tenderness - Neurological Exam Neurological Exam: Awake, CN II-XII Intact - Skin Skin Exam: Dry, Warm Assessment and Plan (1) Fluid overload Status: Acute (2) ESRD (end stage renal disease) Status: Acute (3) Anemia Status: Acute (4) HTN (hypertension), malignant Status: Acute - Assessment and Plan (Free Text) Plan: Dialysis now fluid restriction Increase BP med dosage cannot give EPO with such elevated HTN might need 4X weekly dialysis
--- NOTE | 2018-11-24 11:49 | CARD ---
APPROVED REPORT Date of service: 11/22/2018 EKG Measurement Heart [id number] <Conclusion> Normal sinus rhythm ST & T wave abnormality, consider lateral ischemia Abnormal ECG
--- NOTE | 2018-11-24 12:35 | CP.PCM.CON ---
History of Present Illness - History of Present Illness History of Present Illness: GI fellow PGY4, consult note. Patient is a 63M presenting with SOB and complaining of abdominal pain. The SOB was likely due to fluid overload. He is feeling much more comfortable while receive dialysis. He has been complaining of postprandial epigastric pain, and reflux. The pain is worst 2hrs after eating. He says he has started having these symptoms 3 months ago. He denies nausea, vomiting, bleeding. The symptoms are relieved by an [place] remedy he cannot recall. Previous history shows he has taken antacids in the past. His last BM was 3 days ago, non-bloody. He denies weight loss, blood in stool. He has never had an endoscopy or colonoscopy in the past. He appears to be poorly compliant with medical care. PMHx - ESRD, DM, HTN PSHx - AV fistula FMHx - Unknown SocHx - Current smoker. Denies alcohol. 12pt ROS completed and negative except for above. Past Patient History - Infectious Disease Hx of Infectious Diseases: None - Past Medical History & Family History Past Medical History?: Yes - Past Social History Smoking Status: Light Smoker < 10 Cigarettes Daily - CARDIAC Hx Congestive Heart Failure: Yes Hx Hypercholesterolemia: Yes Hx Hypertension: Yes - PULMONARY Hx Respiratory Disorders: No - NEUROLOGICAL Hx Transient Ischemic Attacks (TIA): Yes (MAYBE) - HEENT Hx HEENT Problems: Yes Hx Cataracts: Yes (S/P Rt cataract surgery) - RENAL Hx Chronic Kidney Disease: Yes - ENDOCRINE/METABOLIC Hx Endocrine Disorders: No - HEMATOLOGICAL/ONCOLOGICAL Hx Anemia: Yes - INTEGUMENTARY Hx Dermatological Problems: No - MUSCULOSKELETAL/RHEUMATOLOGICAL Hx Musculoskeletal Disorders: No Hx Falls: No - GASTROINTESTINAL Hx Gastrointestinal Disorders: No - GENITOURINARY/GYNECOLOGICAL Hx Genitourinary Disorders: No - PSYCHIATRIC Hx Substance Use: No - SURGICAL HISTORY Hx Surgeries: Yes Hx Arteriovenous Shunt: Yes (left arm / LEFT WRIST) Hx Cataract Extraction: Yes (RT. EYE) - ANESTHESIA Hx Anesthesia: Yes Hx Anesthesia Reactions: No Hx Malignant Hyperthermia: No Meds Allergies/Adverse Reactions: Allergies Allergy/AdvReac Type Severity Reaction Status Date / Time No Known Allergies Allergy Verified 11/10/18 23:07 - Medications Medications: Current Medications Albuterol/Ipratropium (Duoneb 3 Mg/0.5 Mg (3 Ml) Ud) 3 ml INH RQ6 [facility] Last Admin: 11/24/18 07:22 Dose: 3 ml Amlodipine Besylate (Norvasc) 10 mg PO DAILY [facility] Last Admin: 11/23/18 09:30 Dose: 10 mg Belladonna/Phenobarbital () 1 tab PO TID [facility] Last Admin: 11/24/18 10:43 Dose: Not Given Carvedilol (Coreg) 25 mg PO BID [facility] Last Admin: 11/24/18 10:42 Dose: Not Given Clonidine HCl (Catapres) 0.1 mg PO BID [facility] Dextrose (Dextrose 50% Inj) 0 ml IV STAT PRN; Protocol PRN Reason: Hypoglycemia Protocol Dextrose (Glutose 15) 0 gm PO ONCE PRN; Protocol PRN Reason: Hypoglycemia Protocol Docusate Sodium (Colace) 100 mg PO TID [facility] Fluticasone/Vilanterol (Breo Ellipta 100-25 Mcg Inh) 1 puff INH RQD [facility] Glucagon (Glucagen Diagnostic Kit) 0 mg IM STAT PRN; Protocol PRN Reason: Hypoglycemia Protocol Hydralazine HCl (Apresoline) 100 mg PO TID [facility] Dextrose (Dextrose 5% In Water 1000 Ml) 1,000 mls @ 0 mls/hr IV .Q0M PRN; Protocol PRN Reason: Hypoglycemia Protocol Insulin Aspart (Novolog) 0 unit SC ACHS [facility]; Protocol Last Admin: 11/24/18 08:13 Dose: 12 units Insulin Glargine (Lantus) 5 unit SC [facility] Losartan Potassium (Cozaar) 50 mg PO DAILY [facility] Last Admin: 11/23/18 11:52 Dose: 50 mg Methylprednisolone (Solu-Medrol) 40 mg IV Q12 [facility] Last Admin: 11/24/18 10:44 Dose: Not Given Metoclopramide HCl (Reglan) 5 mg IVP Q6H [facility] Last Admin: 11/24/18 10:44 Dose: Not Given Rosuvastatin Calcium (Crestor) 5 mg PO HS [facility] Last Admin: 11/23/18 22:00 Dose: 5 mg Physical Exam - Constitutional Appears: Non-toxic, No Acute Distress, Chronically Ill - Head Exam Head Exam: ATRAUMATIC, NORMAL INSPECTION - Eye Exam Eye Exam: EOMI, Normal appearance - ENT Exam ENT Exam: Mucous Membranes Moist, Normal Exam - Respiratory Exam Respiratory Exam: Clear to Auscultation Bilateral, NORMAL BREATHING PATTERN - Cardiovascular Exam Cardiovascular Exam: REGULAR RHYTHM, Rubs, +S1, +S2, Systolic Murmur - GI/Abdominal Exam GI & Abdominal Exam: Normal Bowel Sounds, Soft. absent: Organomegaly, Tenderness - Extremities Exam Extremities exam: Positive for: normal inspection - Neurological Exam Neurological exam: Alert, CN II-XII Intact, Oriented x3 - Psychiatric Exam Psychiatric exam: Normal Affect, Normal Mood - Skin Skin Exam: Normal Color, Warm Results - Vital Signs Recent Vital Signs: Last Vital Signs Temp 97.5 F L 11/24/18 09:30 Pulse 75 11/24/18 12:30 Resp 20 11/24/18 10:51 BP 172/88 H 11/24/18 12:00 Pulse Ox 100 11/24/18 09:30 - Labs Result Diagrams: 11/24/18 07:17 11/24/18 07:17 Labs: Laboratory Results - last 24 hr 11/23/18 11/23/18 11/23/18 13:54 13:54 13:54 WBC 9.1 RBC 3.18 L Hgb 8.7 L Hct 26.8 L MCV 84.1 MCH 27.3 MCHC 32.4 L RDW 20.2 H Plt Count 219 MPV 7.8 Neut % (Auto) 90.8 H Lymph % (Auto) 5.6 L [place] % (Auto) 3.3 Eos % (Auto) 0.0 Baso % (Auto) 0.3 Neut # (Auto) 8.2 H Lymph # (Auto) 0.5 L [place] # (Auto) 0.3 Eos # (Auto) 0.0 Baso # (Auto) 0.0 Neutrophils % (Manual) 90 H Band Neutrophils % Lymphocytes % (Manual) 8 L Monocytes % (Manual) 2 Platelet Estimate Normal Hypochromasia (manual) Slight Poikilocytosis (manual Slight Anisocytosis (manual) Moderate Tear Drop Cells Slight Ovalocytes Slight [place] Cells Slight PT INR APTT Sodium 131 L Potassium 4.0 Chloride 88 L Carbon Dioxide 28 Anion Gap 20 BUN 45 H Creatinine 3.8 H Est GFR ( Amer) 19 Est GFR (Non-Af Amer) 16 POC Glucose (mg/dL) Random Glucose 521 H* D Hemoglobin A1c 6.8 H Calcium 7.7 L Phosphorus 2.8 Magnesium 1.8 Total Bilirubin 0.6 AST 20 ALT 29 Alkaline Phosphatase 168 H NT-Pro-B Natriuret Pep 89988 H Total Protein 7.4 Albumin 3.6 Globulin 3.7 Albumin/Globulin Ratio 1.0 Amylase Lipase Carcinoembryonic Ag CA 19-9 Antigen 11/23/18 11/23/18 11/23/18 14:54 16:39 21:30 WBC RBC Hgb Hct MCV MCH MCHC RDW Plt Count MPV Neut % (Auto) Lymph % (Auto) [place] % (Auto) Eos % (Auto) Baso % (Auto) Neut # (Auto) Lymph # (Auto) [place] # (Auto) Eos # (Auto) Baso # (Auto) Neutrophils % (Manual) Band Neutrophils % Lymphocytes % (Manual) Monocytes % (Manual) Platelet Estimate Hypochromasia (manual) Poikilocytosis (manual Anisocytosis (manual) Tear Drop Cells Ovalocytes [place] Cells PT INR APTT Sodium Potassium Chloride Carbon Dioxide Anion Gap BUN Creatinine Est GFR ( Amer) Est GFR (Non-Af Amer) POC Glucose (mg/dL) 404 H* 322 H 429 H* Random Glucose Hemoglobin A1c Calcium Phosphorus Magnesium Total Bilirubin AST ALT Alkaline Phosphatase NT-Pro-B Natriuret Pep Total Protein Albumin Globulin Albumin/Globulin Ratio Amylase Lipase Carcinoembryonic Ag CA 19-9 Antigen 11/24/18 11/24/18 11/24/18 02:31 06:52 07:17 WBC 10.6 RBC 3.20 L Hgb 8.8 L Hct 26.8 L MCV 83.8 MCH 27.6 MCHC 32.9 L RDW 19.9 H Plt Count 238 MPV 8.1 Neut % (Auto) 90.6 H Lymph % (Auto) 5.0 L [place] % (Auto) 4.2 Eos % (Auto) 0.0 Baso % (Auto) 0.2 Neut # (Auto) 9.6 H Lymph # (Auto) 0.5 L [place] # (Auto) 0.5 Eos # (Auto) 0.0 Baso # (Auto) 0.0 Neutrophils % (Manual) 85 H Band Neutrophils % 4 H Lymphocytes % (Manual) 7 L Monocytes % (Manual) 4 Platelet Estimate Normal Hypochromasia (manual) Slight Poikilocytosis (manual Anisocytosis (manual) Moderate Tear Drop Cells Ovalocytes [place] Cells PT INR APTT Sodium Potassium Chloride Carbon Dioxide Anion Gap BUN Creatinine Est GFR ( Amer) Est GFR (Non-Af Amer) POC Glucose (mg/dL) > 500 H* > 500 H* Random Glucose Hemoglobin A1c Calcium Phosphorus Magnesium Total Bilirubin AST ALT Alkaline Phosphatase NT-Pro-B Natriuret Pep Total Protein Albumin Globulin Albumin/Globulin Ratio Amylase Lipase Carcinoembryonic Ag CA 19-9 Antigen 11/24/18 11/24/18 11/24/18 07:17 11:02 11:02 WBC RBC Hgb Hct MCV MCH MCHC RDW Plt Count MPV Neut % (Auto) Lymph % (Auto) [place] % (Auto) Eos % (Auto) Baso % (Auto) Neut # (Auto) Lymph # (Auto) [place] # (Auto) Eos # (Auto) Baso # (Auto) Neutrophils % (Manual) Band Neutrophils % Lymphocytes % (Manual) Monocytes % (Manual) Platelet Estimate Hypochromasia (manual) Poikilocytosis (manual Anisocytosis (manual) Tear Drop Cells Ovalocytes [place] Cells PT 12.8 H INR 1.2 APTT 30 Sodium 130 L Potassium 4.6 Chloride 90 L Carbon Dioxide 29 Anion Gap 15 BUN 67 H Creatinine 4.9 H Est GFR ( Amer) 14 Est GFR (Non-Af Amer) 12 POC Glucose (mg/dL) Random Glucose 603 H* Hemoglobin A1c Calcium 7.7 L Phosphorus 2.9 Magnesium 1.9 Total Bilirubin 0.6 AST 32 ALT 51 Alkaline Phosphatase 207 H D NT-Pro-B Natriuret Pep Total Protein 7.4 Albumin 3.7 Globulin 3.7 Albumin/Globulin Ratio 1.0 Amylase 64 Lipase 78 Carcinoembryonic Ag 3.9 H CA 19-9 Antigen < 1.4 11/24/18 11:27 WBC RBC Hgb Hct MCV MCH MCHC RDW Plt Count MPV Neut % (Auto) Lymph % (Auto) [place] % (Auto) Eos % (Auto) Baso % (Auto) Neut # (Auto) Lymph # (Auto) [place] # (Auto) Eos # (Auto) Baso # (Auto) Neutrophils % (Manual) Band Neutrophils % Lymphocytes % (Manual) Monocytes % (Manual) Platelet Estimate Hypochromasia (manual) Poikilocytosis (manual Anisocytosis (manual) Tear Drop Cells Ovalocytes [place] Cells PT INR APTT Sodium Potassium Chloride Carbon Dioxide Anion Gap BUN Creatinine Est GFR ( Amer) Est GFR (Non-Af Amer) POC Glucose (mg/dL) 306 H Random Glucose Hemoglobin A1c Calcium Phosphorus Magnesium Total Bilirubin AST ALT Alkaline Phosphatase NT-Pro-B Natriuret Pep Total Protein Albumin Globulin Albumin/Globulin Ratio Amylase Lipase Carcinoembryonic Ag CA 19-9 Antigen Assessment & Plan - Assessment and Plan (Free Text) Assessment: #Abdominal pain, postprandial #New GERD #T2DM, uncontrolled #ESRD on HD #COPD exacerbation #HTN PLAN: -Origin of abdominal pain possibly gastroparesis, GERD, constipation -Recommend blood glucose less than 200 -Start reglan -Start bowel regimen -Recommend EGD when medically stable to tolerate anaesthesia -Start PPI -Renal, diabetic diet with small proportions and pureed -NPO PM for possible EGD in AM. Case discussed with Dr. Marie, See attestation - Date & Time Date: 11/24/18 Time: 12:44
[2018-11-24] MEDS ORDERED: Bisacodyl 5mg EC Tab PO ONE (13:15)
[2018-11-24] MEDS: Fluticasone-Vilanterol 100/25mcg Diskus INH SCH (13:19)
--- NOTE | 2018-11-24 14:27 | PN ---
DATE: 11/24/2018 LOCATION: 671, bed B. SUBJECTIVE: This is a 63-year-old male seen initially for GI consultation on 11/23/2018 as requested by the admitting medical team as well as Dr. Bob Reeves, the actuarial consultant on the case. Full consultation sheet to follow, has a short handwritten consultation sheet left in the chart at the time of the GI consultation on 11/23/2018. The patient is still complaining of dyspepsia, regurgitation of food, postprandial abdominal distention with nausea and dyspepsia, but much less shortness of breath, is scheduled for hemodialysis today. No reported active bleeding and the never had colonoscopy or upper endoscopy before. Most recent lab result today showed hemoglobin 8.8, hematocrit 26.8, normal platelet count. Sodium 130, BUN 67, creatinine 4.9. Blood glucose level above 500 with low calcium 7.7, alkaline phosphatase 207. PHYSICAL EXAMINATION: GENERAL: A 63-year-old male. VITAL SIGNS: Afebrile with pulse of 78, respiratory rate 20-22, blood pressure 118/82. HEENT: Showed pale dry oral mucous membrane. Anicteric sclerae. LUNGS: Few scattered crepitation. Decreased air entry at bases. HEART: Positive S1 and S2 with increased rate. ABDOMEN: Soft with [id number] distention with generalized midepigastric and lower sternal tenderness as well as left lower quadrant tenderness. No mass or organomegaly. No rebound tenderness or guarding. EXTREMITIES: With lower extremities mild edematous changes. No clubbing or cyanosis. NEUROLOGIC: No reported new neurological deficits, sensory or motor. IMPRESSION: 1. Poorly controlled diabetes mellitus. 2. Re-exacerbation of peptic ulcer disease, to rule out gastric versus duodenal ulcer. 3. The possibility of diabetic gastroparesis was raised. 4. To rule out recurrent but acute pancreatitis. 5. Anemia secondary to above. 6. End-stage renal disease on hemodialysis. 7. Multiple past medical history including but not limited to hyperlipidemia, hypertension, congestive heart failure and reported transient ischemic attack. 8 Electrolyte imbalance with hyponatremia, hypocalcemia secondary to above. SUGGESTIONS: 1. Continue current management. 2. Abdominal ultrasound. Cancer markers. Serum lipase, amylase level. Endoscopic evaluation of the GI tract when the patient is more stable clinically. Thank you for letting me participate in your patient's case management. Gabby Bustillo MD [facility] # [id number]
--- NOTE | 2018-11-24 14:29 | CP.PCM.PN ---
<Lesvia Nur - Last Filed: 11/24/18 17:02> Subjective - Date & Time of Evaluation Date of Evaluation: 11/24/18 Time of Evaluation: 08:00 - Subjective Subjective: Cardiology Progress Note for Dr. Reeves: Patient was seen and examined in the AM during dialysis. Patient states he continues to have epigastric pain after he eats. Patient denies chest pain, palpitations, shortness of breath, diarrhea, constipation, fever or chills. Objective - Vital Signs/Intake and Output Vital Signs (last 24 hours): Temp Pulse Resp BP Pulse Ox 97.5 F L 75 20 188/83 H 100 11/24/18 09:30 11/24/18 12:30 11/24/18 10:51 11/24/18 13:24 11/24/18 09:30 Intake and Output: 11/24/18 11/24/18 06:59 18:59 Intake Total 300 Balance 300 - Medications Medications: Current Medications Albuterol/Ipratropium (Duoneb 3 Mg/0.5 Mg (3 Ml) Ud) 3 ml INH RQ6 [facility] Last Admin: 11/24/18 13:19 Dose: Not Given Amlodipine Besylate (Norvasc) 10 mg PO DAILY [facility] Last Admin: 11/24/18 13:22 Dose: 10 mg Belladonna/Phenobarbital () 1 tab PO TID [facility] Last Admin: 11/24/18 13:21 Dose: 1 tab Carvedilol (Coreg) 25 mg PO BID [facility] Last Admin: 11/24/18 10:42 Dose: Not Given Clonidine HCl (Catapres) 0.1 mg PO BID [facility] Dextrose (Dextrose 50% Inj) 0 ml IV STAT PRN; Protocol PRN Reason: Hypoglycemia Protocol Dextrose (Glutose 15) 0 gm PO ONCE PRN; Protocol PRN Reason: Hypoglycemia Protocol Docusate Sodium (Colace) 100 mg PO TID [facility] Last Admin: 11/24/18 13:21 Dose: 100 mg Fluticasone/Vilanterol (Breo Ellipta 100-25 Mcg Inh) 1 puff INH RQD [facility] Last Admin: 11/24/18 13:19 Dose: Not Given Glucagon (Glucagen Diagnostic Kit) 0 mg IM STAT PRN; Protocol PRN Reason: Hypoglycemia Protocol Hydralazine HCl (Apresoline) 100 mg PO TID [facility] Last Admin: 11/24/18 13:22 Dose: 100 mg Dextrose (Dextrose 5% In Water 1000 Ml) 1,000 mls @ 0 mls/hr IV .Q0M PRN; Protocol PRN Reason: Hypoglycemia Protocol Insulin Aspart (Novolog) 0 unit SC ACHS [facility]; Protocol Last Admin: 11/24/18 13:32 Dose: 8 units Insulin Glargine (Lantus) 5 unit SC HS [facility] Losartan Potassium (Cozaar) 50 mg PO DAILY [facility] Last Admin: 11/24/18 13:23 Dose: 50 mg Methylprednisolone (Solu-Medrol) 40 mg IV Q12 [facility] Last Admin: 11/24/18 10:44 Dose: Not Given Metoclopramide HCl (Reglan) 5 mg IVP Q6H [facility] Last Admin: 11/24/18 10:44 Dose: Not Given Polyethylene Glycol (Miralax) 17 gm PO BID [facility] Rosuvastatin Calcium (Crestor) 5 mg PO HS [facility] Last Admin: 11/23/18 22:00 Dose: 5 mg - Labs Labs: 11/24/18 07:17 11/24/18 07:17 PT 12.8 SECONDS (9.7-12.2) H 11/24/18 11:02 INR 1.2 11/24/18 11:02 APTT 30 SECONDS (21-34) 11/24/18 11:02 - Constitutional Appears: No Acute Distress, Older Than Stated Age - Head Exam Head Exam: ATRAUMATIC, NORMAL INSPECTION - Eye Exam Eye Exam: EOMI, Normal appearance - ENT Exam ENT Exam: Mucous Membranes Moist Additional comments: poor dentition - Respiratory Exam Respiratory Exam: NORMAL BREATHING PATTERN - Cardiovascular Exam Cardiovascular Exam: REGULAR RHYTHM, +S1, +S2 - GI/Abdominal Exam GI & Abdominal Exam: Distended, Soft, Normal Bowel Sounds. absent: Tenderness - Extremities Exam Extremities Exam: Pedal Edema - Neurological Exam Neurological Exam: Alert, Awake, Oriented x3 - Psychiatric Exam Psychiatric exam: Normal Affect Assessment and Plan - Assessment and Plan (Free Text) Assessment: 63 year old male with past medical history of COPD, CHF, ESRD on HD MWF, DM, and anemia presented to the ED for SOB. History of CHF - BNP 38,800 - patient not on home diuretics; will hold off on diuresis for now - ECHO (11/11/18): EF 65-70%; left atrial pressure mildly elevated; mild concentric left ventricular hypertrophy. Mild valvular aortic stenosis. - Isabell Stress Test Saturday11/26/18 History of HTN - Nephrology Consulted: Dr. Pang- [facility] HD - Medications: * Hydralazine 100mg po tid * Coazaar 50mg po daily * Coreg 25mg po bid * Norvasc 10mg po daily Case discussed with Dr. Leandro Nur PGY-2 <Bob Reeves - Last Filed: 11/24/18 21:57> Objective - Vital Signs/Intake and Output Vital Signs (last 24 hours): Temp Pulse Resp BP Pulse Ox 97.9 F 81 20 164/72 H 97 11/24/18 15:15 11/24/18 17:30 11/24/18 15:15 11/24/18 20:07 11/24/18 15:15 Intake and Output: 11/24/18 11/25/18 18:59 06:59 Intake Total 300 Balance 300 - Medications Medications: Current Medications Albuterol/Ipratropium (Duoneb 3 Mg/0.5 Mg (3 Ml) Ud) 3 ml INH RQ6 [facility] Last Admin: 11/24/18 20:14 Dose: 3 ml Amlodipine Besylate (Norvasc) 10 mg PO DAILY [facility] Belladonna/Phenobarbital () 1 tab PO TID [facility] Last Admin: 11/24/18 20:09 Dose: 1 tab Carvedilol (Coreg) 25 mg PO Q12H [facility] Clonidine HCl (Catapres) 0.1 mg PO BID [facility] Dextrose (Dextrose 50% Inj) 0 ml IV STAT PRN; Protocol PRN Reason: Hypoglycemia Protocol Dextrose (Glutose 15) 0 gm PO ONCE PRN; Protocol PRN Reason: Hypoglycemia Protocol Docusate Sodium (Colace) 100 mg PO TID [facility] Last Admin: 11/24/18 20:06 Dose: 100 mg Fluticasone/Vilanterol (Breo Ellipta 100-25 Mcg Inh) 1 puff INH RQD [facility] Last Admin: 11/24/18 13:19 Dose: Not Given Glucagon (Glucagen Diagnostic Kit) 0 mg IM STAT PRN; Protocol PRN Reason: Hypoglycemia Protocol Hydralazine HCl (Apresoline) 100 mg PO TID [facility] Dextrose (Dextrose 5% In Water 1000 Ml) 1,000 mls @ 0 mls/hr IV .Q0M PRN; Protocol PRN Reason: Hypoglycemia Protocol Insulin Aspart (Novolog) 0 unit SC ACHS [facility]; Protocol Insulin Aspart (Novolog Mix 70/30 (70/30 Units/Ml)) 30 units SC ACB [facility] Insulin Aspart (Novolog Mix 70/30 (70/30 Units/Ml)) 20 units SC ACD [facility] Losartan Potassium (Cozaar) 50 mg PO DAILY [facility] Methylprednisolone (Solu-Medrol) 40 mg IV Q12 [facility] Last Admin: 11/24/18 10:44 Dose: Not Given Metoclopramide HCl (Reglan) 5 mg IVP Q6H [facility] Last Admin: 11/24/18 17:08 Dose: 5 mg Polyethylene Glycol (Miralax) 17 gm PO BID [facility] Last Admin: 11/24/18 20:18 Dose: 17 gm Rosuvastatin Calcium (Crestor) 5 mg PO HS [facility] Last Admin: 11/23/18 22:00 Dose: 5 mg - Labs Labs: 11/24/18 07:17 11/24/18 07:17 PT 12.8 SECONDS (9.7-12.2) H 11/24/18 11:02 INR 1.2 11/24/18 11:02 APTT 30 SECONDS (21-34) 11/24/18 11:02 Assessment and Plan - Assessment and Plan (Free Text) Assessment: Patient seen and examined personally by me. Plan of care d/w the medical center representative and as documented
--- NOTE | 2018-11-24 17:55 | RAD ---
Date of service: 11/24/2018 HISTORY: fluid overload, sob COMPARISON: Chest radiograph dated 11/22/2018. FINDINGS: LUNGS: Pulmonary vascular congestion. Left basilar atelectasis. PLEURA: Stable moderate to large left pleural effusion. CARDIOVASCULAR: Aortic atherosclerotic calcifications. Cardiomediastinal silhouette stably enlarged. OSSEOUS STRUCTURES: Unchanged. VISUALIZED UPPER ABDOMEN: Normal. OTHER FINDINGS: Left axillosubclavian vascular stent redemonstrated. IMPRESSION: Stable moderate to large left pleural effusion. No significant interval change.
[2018-11-24] MEDS ORDERED: (Novolog Mix 70/30) Insulin Aspart/Insulin Aspar 100 units/ml SC STA (19:40)
[2018-11-24] MEDS: POLYETHYLENE GLYCOL 3350 17 GM/Dose PACKET PO SCH (20:18)
[2018-11-24] MEDS ORDERED: (Lantus) Insulin Glargine, Recombinant SC SCH (22:00)
[2018-11-25] MEDS: Albuterol-Ipratrop 3 mg / 0.5 (3 ml) UD INH SCH ×4 (01:18→19:10)
[2018-11-25] MEDS ORDERED: Caffeine Citrated **INJ** 20 MG/ML IV ONE (07:36)
[2018-11-25] MEDS: Fluticasone-Vilanterol 100/25mcg Diskus INH SCH (07:38)
[2018-11-25] MEDS: (Novolog) Insulin Aspart, Recombinant 100 u/ml 10 ml vial SC SCH ×4 (07:43→22:44)
[2018-11-25] MEDS: (Novolog Mix 70/30) Insulin Aspart/Insulin Aspar 100 units/ml SC SCH (07:43)
--- NOTE | 2018-11-25 09:00 | CP.PCM.PN ---
Subjective - Date & Time of Evaluation Date of Evaluation: 11/25/18 Time of Evaluation: 09:00 - Subjective Subjective: PGY-1 Sara Crockett D.O. Medicine progress note for Dr. Russel Pollard's service: Patient was seen and examined this morning. He denies abdominal pain. He is ambulating without difficulty. Denies chest pain, SOB, or cough. He is com plaining that the hospital keeps giving him potatoes. Spoke to nursing, they report that patient frequently goes to the nutrition room and gets snacks to eat. Explained to patient that his blood glucose is not well controlled; however, he did not appear to understand. Patient had stress test today. Objective - Vital Signs/Intake and Output Vital Signs (last 24 hours): Temp Pulse Resp BP Pulse Ox 97.5 F L 77 20 177/77 H 100 11/25/18 07:30 11/25/18 07:49 11/25/18 07:30 11/25/18 07:30 11/25/18 07:30 - Medications Medications: Current Medications Albuterol/Ipratropium (Duoneb 3 Mg/0.5 Mg (3 Ml) Ud) 3 ml INH RQ6 [facility] Last Admin: 11/25/18 07:38 Dose: 3 ml Amlodipine Besylate (Norvasc) 10 mg PO DAILY [facility] Belladonna/Phenobarbital () 1 tab PO TID [facility] Last Admin: 11/24/18 20:09 Dose: 1 tab Carvedilol (Coreg) 25 mg PO Q12H [facility] Last Admin: 11/24/18 20:00 Dose: Not Given Clonidine HCl (Catapres) 0.1 mg PO BID [facility] Last Admin: 11/24/18 18:00 Dose: Not Given Dextrose (Dextrose 50% Inj) 0 ml IV STAT PRN; Protocol PRN Reason: Hypoglycemia Protocol Dextrose (Glutose 15) 0 gm PO ONCE PRN; Protocol PRN Reason: Hypoglycemia Protocol Docusate Sodium (Colace) 100 mg PO TID [facility] Last Admin: 11/24/18 20:06 Dose: 100 mg Fluticasone/Vilanterol (Breo Ellipta 100-25 Mcg Inh) 1 puff INH RQD [facility] Last Admin: 11/25/18 07:38 Dose: 1 puff Glucagon (Glucagen Diagnostic Kit) 0 mg IM STAT PRN; Protocol PRN Reason: Hypoglycemia Protocol Hydralazine HCl (Apresoline) 100 mg PO TID [facility] Last Admin: 11/24/18 18:00 Dose: Not Given Dextrose (Dextrose 5% In Water 1000 Ml) 1,000 mls @ 0 mls/hr IV .Q0M PRN; Protocol PRN Reason: Hypoglycemia Protocol Insulin Aspart (Novolog) 0 unit SC ACHS [facility]; Protocol Last Admin: 11/25/18 07:43 Dose: Not Given Insulin Aspart (Novolog Mix 70/30 (70/30 Units/Ml)) 30 units SC ACB [facility] Last Admin: 11/25/18 07:43 Dose: Not Given Insulin Aspart (Novolog Mix 70/30 (70/30 Units/Ml)) 20 units SC ACD [facility] Losartan Potassium (Cozaar) 50 mg PO DAILY [facility] Methylprednisolone (Solu-Medrol) 40 mg IV Q12 [facility] Last Admin: 11/24/18 22:30 Dose: 40 mg Metoclopramide HCl (Reglan) 5 mg IVP Q6H [facility] Last Admin: 11/25/18 04:12 Dose: 5 mg Polyethylene Glycol (Miralax) 17 gm PO BID [facility] Last Admin: 11/24/18 20:18 Dose: 17 gm Rosuvastatin Calcium (Crestor) 5 mg PO HS [facility] Last Admin: 11/24/18 22:29 Dose: 5 mg - Labs Labs: 11/24/18 07:17 11/24/18 07:17 PT 12.8 SECONDS (9.7-12.2) H 11/24/18 11:02 INR 1.2 11/24/18 11:02 APTT 30 SECONDS (21-34) 11/24/18 11:02 - Constitutional Appears: Non-toxic, No Acute Distress - Head Exam Head Exam: ATRAUMATIC, NORMAL INSPECTION - Eye Exam Eye Exam: EOMI, Normal appearance - ENT Exam ENT Exam: Mucous Membranes Moist - Neck Exam Neck Exam: Normal Inspection - Respiratory Exam Respiratory Exam: Clear to Ausculation Bilateral, NORMAL BREATHING PATTERN. absent: Accessory Muscle Use, Respiratory Distress - Cardiovascular Exam Cardiovascular Exam: REGULAR RHYTHM, +S1, +S2, Murmur - GI/Abdominal Exam GI & Abdominal Exam: Soft. absent: Distended, Tenderness - Extremities Exam Extremities Exam: Normal Inspection Additional comments: L AVF - Neurological Exam Neurological Exam: Alert, Awake, CN II-XII Intact, Normal Gait, Oriented x3 - Psychiatric Exam Psychiatric exam: Normal Affect, Normal Mood - Skin Skin Exam: Dry, Normal Color, Warm Assessment and Plan - Assessment and Plan (Free Text) Assessment: Patient is a 63 yo male with a history of COPD, CHF, ESRD (HD MWF), and T2DM who presented with SOB. Patient is still smoking cigarettes. Plan: Hypertension crisis - Vitals Q4H - Hydralazine 100 mg PO TID (8AM, 2PM, 8PM) - Clonidine 0.1 mg PO TID (8AM, 2PM, 8PM) - Losartan 50 mg PO daily (2PM) - Coreg 25 mg PO BID (8AM, 8PM) - Norvasc 10 mg PO daily (2PM) - Heart healthy diet- 2 g Na, fluid restriction - Nephrology consulted (Bird)- MWF HD schedule, may need 4x/wk, no EPO due to HTN Chronic obstructive pulmonary disease- acute exacerbation, improving - CXR: Persistent pulmonary venous congestive changes with dense opacity in the left mid to lower lung field likely representing some combination of atelectasis/infiltrate and moderately large effusion. Small right-sided effusion felt be present. - Rep CXR following HD: Stable moderate to large left pleural effusion. No sig nificant interval change. - BCx no growth >48 hrs - Duoneb Q6H - Breo daily - Steroid taper until 11/30 - Supplemental O2 via [place] PRN Aortic valve stenosis - Echo (11/11): normal systolic function but Aortic valve stenosis, in prior notes it states CHF but this is incorrect - f/u stress test - Aspirin 81 mg PO daily - Crestor 5 mg PO QHS - Cardiology consulted (Leandro)- stress test 11/25 Anemia- suspect chronic disease, 2/2 renal disease - Iron studies pending - No EPO due to HTN as per nephrology Type 2 diabetes mellitus, chronic- poorly controlled - A1c 6.5 - Lipid panel pending - Accuchecks ACHS - Hypoglycemic protocol - ISS ACHS - 70/30 30 units SC ACB, 20 units SC ACD - Endocrinology consulted (Cam) - material inspector consulted - Ward Clerk consulted Abdominal pain, resolved - Abd US: Partially contracted gallbladder limiting assessment accuracy of its current thickened wall appearance at 3.9 mm. This could be due to underdistention and/or intrinsic gallbladder wall thickening. No stones appreciated. Possible diffuse increased liver echogenicity-can be seen with varying degrees of hepatic steatosis and/or other hepatic parenchymal infiltrative processes. The echogenicity however is not particularly prominent and clinical correlation is advised. The liver is minimally enlarged. - Protonix 40 mg PO daily - 1 mg PO TID - Reglan 5 mg IVP Q6H - Miralax 17 g PO BID - Colace 100 mg PO TID - GI consult (Frank)- EGD in AM 11/26 End stage renal disease on dialysis, chronic - Nephrology consulted (Bird)- HD on MWF, possibly will need 4x/week Tobacco use disorder, chronic - Highly encouraged cessation - Nicotine patch daily Ppx: VTE: Heparin 5000 units SC Q12H GI: Protonix 40 mg IV Q6H Code status: full code Case discussed with attending, Dr. Russel Pollard.
--- NOTE | 2018-11-25 09:53 | CP.PCM.PN ---
<Lesvia Nur - Last Filed: 11/25/18 19:04> Subjective - Date & Time of Evaluation Date of Evaluation: 11/25/18 Time of Evaluation: 08:00 - Subjective Subjective: Cardiology Progress Note: Patient was seen and examined at bedside in the AM. Patient states he is feeling well and cannot wait to go home. Patient denies chest pain, shortness of breath, fever, chills, nausea or vomiting. Objective - Vital Signs/Intake and Output Vital Signs (last 24 hours): Temp Pulse Resp BP Pulse Ox 97.5 F L 77 20 177/77 H 100 11/25/18 07:30 11/25/18 07:49 11/25/18 07:30 11/25/18 07:30 11/25/18 07:30 - Medications Medications: Current Medications Albuterol/Ipratropium (Duoneb 3 Mg/0.5 Mg (3 Ml) Ud) 3 ml INH RQ6 [facility] Last Admin: 11/25/18 07:38 Dose: 3 ml Amlodipine Besylate (Norvasc) 10 mg PO DAILY [facility] Belladonna/Phenobarbital () 1 tab PO TID [facility] Last Admin: 11/24/18 20:09 Dose: 1 tab Carvedilol (Coreg) 25 mg PO Q12H [facility] Clonidine HCl (Catapres) 0.1 mg PO Q12 [facility] Dextrose (Dextrose 50% Inj) 0 ml IV STAT PRN; Protocol PRN Reason: Hypoglycemia Protocol Dextrose (Glutose 15) 0 gm PO ONCE PRN; Protocol PRN Reason: Hypoglycemia Protocol Docusate Sodium (Colace) 100 mg PO TID [facility] Last Admin: 11/24/18 20:06 Dose: 100 mg Fluticasone/Vilanterol (Breo Ellipta 100-25 Mcg Inh) 1 puff INH RQD [facility] Last Admin: 11/25/18 07:38 Dose: 1 puff Glucagon (Glucagen Diagnostic Kit) 0 mg IM STAT PRN; Protocol PRN Reason: Hypoglycemia Protocol Hydralazine HCl (Apresoline) 100 mg PO TID [facility] Dextrose (Dextrose 5% In Water 1000 Ml) 1,000 mls @ 0 mls/hr IV .Q0M PRN; Protocol PRN Reason: Hypoglycemia Protocol Insulin Aspart (Novolog) 0 unit SC ACHS [facility]; Protocol Last Admin: 11/25/18 07:43 Dose: Not Given Insulin Aspart (Novolog Mix 70/30 (70/30 Units/Ml)) 30 units SC ACB [facility] Last Admin: 11/25/18 07:43 Dose: Not Given Insulin Aspart (Novolog Mix 70/30 (70/30 Units/Ml)) 20 units SC ACD [facility] Losartan Potassium (Cozaar) 50 mg PO DAILY [facility] Methylprednisolone (Solu-Medrol) 40 mg IV Q12 [facility] Last Admin: 11/24/18 22:30 Dose: 40 mg Metoclopramide HCl (Reglan) 5 mg IVP Q6H [facility] Last Admin: 11/25/18 04:12 Dose: 5 mg Polyethylene Glycol (Miralax) 17 gm PO BID [facility] Last Admin: 11/24/18 20:18 Dose: 17 gm Rosuvastatin Calcium (Crestor) 5 mg PO HS [facility] Last Admin: 11/24/18 22:29 Dose: 5 mg - Labs Labs: 11/24/18 07:17 11/24/18 07:17 PT 12.8 SECONDS (9.7-12.2) H 11/24/18 11:02 INR 1.2 11/24/18 11:02 APTT 30 SECONDS (21-34) 11/24/18 11:02 - Constitutional Appears: No Acute Distress, Older Than Stated Age - Head Exam Head Exam: ATRAUMATIC, NORMAL INSPECTION - Eye Exam Eye Exam: EOMI, Normal appearance - ENT Exam ENT Exam: Mucous Membranes Moist Additional comments: poor dentition - Respiratory Exam Respiratory Exam: NORMAL BREATHING PATTERN - Cardiovascular Exam Cardiovascular Exam: REGULAR RHYTHM, +S1, +S2 - GI/Abdominal Exam GI & Abdominal Exam: Distended, Soft, Normal Bowel Sounds. absent: Tenderness - Extremities Exam Extremities Exam: Pedal Edema - Neurological Exam Neurological Exam: Alert, Awake, Oriented x3 - Psychiatric Exam Psychiatric exam: Normal Affect Assessment and Plan - Assessment and Plan (Free Text) Assessment: 63 year old male with past medical history of COPD, CHF, ESRD on HD MWF, DM, and anemia presented to the ED for SOB. History of CHF - BNP 38,800 - patient not on home diuretics; will hold off on diuresis for now - ECHO (11/11/18): EF 65-70%; left atrial pressure mildly elevated; mild concentric left ventricular hypertrophy. Mild valvular aortic stenosis. - Isabell Stress Test: Reviewed by Dr. Reeves; Normal; EF 69% History of HTN - Nephrology Consulted: Dr. Pang- [facility] HD - Medications: * Hydralazine 100mg po tid * Coazaar 50mg po daily * Coreg 25mg po bid * Norvasc 10mg po daily Case discussed with Dr. Leandro Nur PGY-2 <Bob Reeves - Last Filed: 11/25/18 22:54> Objective - Vital Signs/Intake and Output Vital Signs (last 24 hours): Temp Pulse Resp BP Pulse Ox 97.2 F L 80 20 159/71 H 97 11/25/18 15:33 11/25/18 15:33 11/25/18 15:33 11/25/18 21:33 11/25/18 15:33 Intake and Output: 11/25/18 11/26/18 18:59 06:59 Intake Total 300 Balance 300 - Medications Medications: Current Medications Albuterol/Ipratropium (Duoneb 3 Mg/0.5 Mg (3 Ml) Ud) 3 ml INH RQ6 [facility] Last Admin: 11/25/18 19:10 Dose: 3 ml Amlodipine Besylate (Norvasc) 10 mg PO DAILY [facility] Belladonna/Phenobarbital () 1 tab PO TID [facility] Last Admin: 11/25/18 17:55 Dose: 1 tab Carvedilol (Coreg) 25 mg PO Q12H [facility] Last Admin: 11/25/18 21:33 Dose: 25 mg Clonidine HCl (Catapres) 0.1 mg PO TID [facility] Last Admin: 11/25/18 21:03 Dose: 0.1 mg Dextrose (Dextrose 50% Inj) 0 ml IV STAT PRN; Protocol PRN Reason: Hypoglycemia Protocol Dextrose (Glutose 15) 0 gm PO ONCE PRN; Protocol PRN Reason: Hypoglycemia Protocol Docusate Sodium (Colace) 100 mg PO TID [facility] Last Admin: 11/25/18 17:54 Dose: 100 mg Epoetin Huy (Procrit) 10,000 unit IV [facility] Fluticasone/Vilanterol (Breo Ellipta 100-25 Mcg Inh) 1 puff INH RQD [facility] Last Admin: 11/25/18 07:38 Dose: 1 puff Glucagon (Glucagen Diagnostic Kit) 0 mg IM STAT PRN; Protocol PRN Reason: Hypoglycemia Protocol Hydralazine HCl (Apresoline) 100 mg PO TID [facility] Last Admin: 11/25/18 17:54 Dose: 100 mg Dextrose (Dextrose 5% In Water 1000 Ml) 1,000 mls @ 0 mls/hr IV .Q0M PRN; Protocol PRN Reason: Hypoglycemia Protocol Insulin Aspart (Novolog Mix 70/30 (70/30 Units/Ml)) 30 units SC ACB [facility] Last Admin: 11/25/18 07:43 Dose: Not Given Insulin Aspart (Novolog Mix 70/30 (70/30 Units/Ml)) 20 units SC ACD [facility] Last Admin: 11/25/18 17:50 Dose: 20 u Insulin Aspart (Novolog) 0 unit SC ACHS [facility]; Protocol Last Admin: 11/25/18 22:44 Dose: 4 u Losartan Potassium (Cozaar) 50 mg PO DAILY [facility] Last Admin: 11/25/18 13:15 Dose: 50 mg Metoclopramide HCl (Reglan) 5 mg IVP Q6H [facility] Last Admin: 11/25/18 21:05 Dose: 5 mg Nicotine (Nicoderm Cq) 1 patch TD DAILY [facility] Last Admin: 11/25/18 14:25 Dose: 1 patch Polyethylene Glycol (Miralax) 17 gm PO BID [facility] Last Admin: 11/25/18 17:55 Dose: 17 gm Prednisone (Prednisone Tab) 50 mg PO ONCE ONE Stop: 11/26/18 10:01 Prednisone (Prednisone Tab) 40 mg PO ONCE ONE Stop: 11/27/18 10:01 Prednisone (Prednisone Tab) 30 mg PO DAILY [facility] Prednisone (Prednisone Tab) 20 mg PO DAILY [facility] Prednisone (Prednisone Tab) 10 mg PO DAILY [facility] Rosuvastatin Calcium (Crestor) 5 mg PO HS [facility] Last Admin: 11/25/18 21:04 Dose: 5 mg - Labs Labs: 11/25/18 11:04 11/25/18 11:04 PT 12.8 SECONDS (9.7-12.2) H 11/24/18 11:02 INR 1.2 11/24/18 11:02 APTT 30 SECONDS (21-34) 11/24/18 11:02 Assessment and Plan - Assessment and Plan (Free Text) Assessment: Patient seen and evaluated personally by me. Plan of care d/w the medical and scientific illustrator and as documented
--- NOTE | 2018-11-25 10:21 | US ---
Date of service: 11/24/2018 HISTORY: abdominal pain COMPARISON: Renal ultrasound 09/16/2015 TECHNIQUE: Sonographic evaluation of the abdomen. FINDINGS: LIVER: Measures 17.2 cm. Possible mild increased hepatic [id number] technical. No focal masses.. No intrahepatic bile duct dilatation.Patent portal vein. Portal venous flow: Hepatopetal. GALLBLADDER: The gallbladder is partially contracted apparently patient ate food prior to the exam. No gross stones are seen. Evaluation of the wall is limited because of this. Consider reassessment with fasting COMMON BILE DUCT: Measures 4 mm. No stones. No dilatation. PANCREAS: Unremarkable as visualized. No mass. No ductal dilatation. RIGHT KIDNEY: Measures 8.8 x 3.8 x 4.2cm. Mild diffuse increased echogenicity suspect. No calculus, mass, or hydronephrosis. LEFT KIDNEY: Measures 7.8 x 4.7 x 4.0cm. Mild diffuse increased echogenicity suspect. No calculus, mass, or hydronephrosis. SPLEEN: Normal in size and contour. No mass. AORTA: No aneurysmal dilatation. IVC: Unremarkable. OTHER FINDINGS: Bilateral pleural effusions that on the right is minimal that on the left is moderate IMPRESSION: Partially contracted gallbladder limiting assessment accuracy of its current thickened wall appearance at 3.9 mm. This could be due to underdistention and/or intrinsic gallbladder wall thickening. No stones appreciated.. Consider hree assessment of the gallbladder after fasting state. Possible diffuse increased liver echogenicity-can be seen with varying degrees of hepatic steatosis and/or other hepatic parenchymal infiltrative processes. The echogenicity however is not particularly prominent and clinical correlation is advised. The liver is minimally enlarged. Bilateral pleural effusions and right is trace left is moderate
--- NOTE | 2018-11-25 11:00 | CP.PCM.PN ---
Subjective - Date & Time of Evaluation Date of Evaluation: 11/25/18 Time of Evaluation: 10:58 - Subjective Subjective: seen and examined improved breathing recent echo noted. nl EF. ?diastolic dysfunction Objective - Vital Signs/Intake and Output Vital Signs (last 24 hours): Temp Pulse Resp BP Pulse Ox 97.5 F L 77 20 177/77 H 100 11/25/18 07:30 11/25/18 07:49 11/25/18 07:30 11/25/18 07:30 11/25/18 07:30 - Medications Medications: Current Medications Albuterol/Ipratropium (Duoneb 3 Mg/0.5 Mg (3 Ml) Ud) 3 ml INH RQ6 [facility] Last Admin: 11/25/18 07:38 Dose: 3 ml Amlodipine Besylate (Norvasc) 10 mg PO DAILY [facility] Belladonna/Phenobarbital () 1 tab PO TID [facility] Last Admin: 11/24/18 20:09 Dose: 1 tab Carvedilol (Coreg) 25 mg PO Q12H [facility] Dextrose (Dextrose 50% Inj) 0 ml IV STAT PRN; Protocol PRN Reason: Hypoglycemia Protocol Dextrose (Glutose 15) 0 gm PO ONCE PRN; Protocol PRN Reason: Hypoglycemia Protocol Docusate Sodium (Colace) 100 mg PO TID [facility] Last Admin: 11/24/18 20:06 Dose: 100 mg Fluticasone/Vilanterol (Breo Ellipta 100-25 Mcg Inh) 1 puff INH RQD [facility] Last Admin: 11/25/18 07:38 Dose: 1 puff Glucagon (Glucagen Diagnostic Kit) 0 mg IM STAT PRN; Protocol PRN Reason: Hypoglycemia Protocol Hydralazine HCl (Apresoline) 100 mg PO TID [facility] Dextrose (Dextrose 5% In Water 1000 Ml) 1,000 mls @ 0 mls/hr IV .Q0M PRN; Protocol PRN Reason: Hypoglycemia Protocol Insulin Aspart (Novolog) 0 unit SC ACHS [facility]; Protocol Last Admin: 11/25/18 07:43 Dose: Not Given Insulin Aspart (Novolog Mix 70/30 (70/30 Units/Ml)) 30 units SC ACB [facility] Last Admin: 11/25/18 07:43 Dose: Not Given Insulin Aspart (Novolog Mix 70/30 (70/30 Units/Ml)) 20 units SC ACD [facility] Losartan Potassium (Cozaar) 50 mg PO DAILY [facility] Methylprednisolone (Solu-Medrol) 40 mg IV Q12 [facility] Last Admin: 11/24/18 22:30 Dose: 40 mg Metoclopramide HCl (Reglan) 5 mg IVP Q6H [facility] Last Admin: 11/25/18 04:12 Dose: 5 mg Polyethylene Glycol (Miralax) 17 gm PO BID [facility] Last Admin: 11/24/18 20:18 Dose: 17 gm Rosuvastatin Calcium (Crestor) 5 mg PO HS [facility] Last Admin: 11/24/18 22:29 Dose: 5 mg - Labs Labs: 11/24/18 07:17 11/24/18 07:17 PT 12.8 SECONDS (9.7-12.2) H 11/24/18 11:02 INR 1.2 11/24/18 11:02 APTT 30 SECONDS (21-34) 11/24/18 11:02 - Constitutional Appears: No Acute Distress, Chronically Ill - Head Exam Head Exam: NORMAL INSPECTION, NORMOCEPHALIC - Eye Exam Eye Exam: Normal appearance, PERRL - ENT Exam ENT Exam: Mucous Membranes Moist, Normal Exam - Neck Exam Neck Exam: Full ROM, Normal Inspection - Respiratory Exam Respiratory Exam: Decreased Breath Sounds, NORMAL BREATHING PATTERN - Cardiovascular Exam Cardiovascular Exam: REGULAR RHYTHM, RRR - GI/Abdominal Exam GI & Abdominal Exam: Distended, Soft, Normal Bowel Sounds - Extremities Exam Extremities Exam: Full ROM (lue avf), Normal Inspection - Neurological Exam Neurological Exam: Alert, Awake, Oriented x3 - Psychiatric Exam Psychiatric exam: Normal Affect, Normal Mood - Skin Skin Exam: Dry, Intact Assessment and Plan (1) COPD (chronic obstructive pulmonary disease) Status: Acute (2) ESRD (end stage renal disease) Status: Acute (3) Fluid overload Status: Acute (4) Abnormal blood pressure Status: Acute (5) Anemia Status: Acute - Assessment and Plan (Free Text) Assessment: increase clonidine dose fluid restriction advised hd tomorrow kb w/ hd
[2018-11-25] MEDS: POLYETHYLENE GLYCOL 3350 17 GM/Dose PACKET PO SCH ×2 (11:03→17:55)
[2018-11-25] MEDS: Belladonna-Phenobarbital PO SCH ×3 (11:06→17:55)
[2018-11-25] MEDS: MethylPREDNISolone 40 mg Vial IV SCH (11:06)
[2018-11-25 11:15] LABS: BASO % 0.1 % (0.0-2.0); HEMOGLOBIN 9.2 g/dL (12.0-18.0); LYMPH # 0.8 K/uL (1.0-4.3); LYMPH % 6.4 % (20.0-40.0); MEAN CELL VOLUME 84.7 fL (80.0-94.0); MEAN CORPUSCULAR HEMOGLOBIN 27.1 pg (27.0-31.0); MONO # 0.5 K/uL (0.0-0.8); MONO % 3.9 % (0.0-10.0); NEUT # 10.9 K/uL (1.8-7.0); NEUT % 89.6 % (50.0-75.0); NRBC % 0.1 % (0.0-2.0); PLATELET COUNT 263 K/uL (130-400); RBC 3.38 Mil/uL (4.40-5.90); RED CELL DISTRIBUTION WIDTH 20.6 % (11.5-14.5); WHITE BLOOD COUNT 12.2 K/uL (4.8-10.8)
[2018-11-25 11:31] LABS: ALB/GLOB RATIO 1.1 (1.0-2.1); ALBUMIN 3.9 g/dL (3.5-5.0)
[2018-11-25 12:11] LABS: LYMPHOCYTE 6 % (20-40); MONOCYTE 4 % (0-10); NEUTROPHIL 90 % (50-75); TOTAL CELLS COUNTED 100
[2018-11-25 12:12] LABS: ANISOCYTOSIS MODERATE; HYPOCHROMIC SLIGHT; PLATELET ESTIMATE NORMAL (NORMAL)
[2018-11-25] MEDS ORDERED: (Novolin R) Insulin Human Regular 100 units/ml vial SC ONE (13:15)
--- NOTE | 2018-11-25 14:10 | CP.PCM.PN ---
Subjective - Date & Time of Evaluation Date of Evaluation: 11/25/18 Time of Evaluation: 14:07 - Subjective Subjective: No acute changes. Stress test today. Objective - Vital Signs/Intake and Output Vital Signs (last 24 hours): Temp Pulse Resp BP Pulse Ox 97.5 F L 87 20 184/77 H 100 11/25/18 07:30 11/25/18 13:16 11/25/18 07:30 11/25/18 13:16 11/25/18 07:30 - Medications Medications: Current Medications Albuterol/Ipratropium (Duoneb 3 Mg/0.5 Mg (3 Ml) Ud) 3 ml INH RQ6 [facility] Last Admin: 11/25/18 13:37 Dose: 3 ml Amlodipine Besylate (Norvasc) 10 mg PO DAILY [facility] Last Admin: 11/25/18 11:04 Dose: 10 mg Belladonna/Phenobarbital () 1 tab PO TID [facility] Last Admin: 11/25/18 13:15 Dose: 1 tab Carvedilol (Coreg) 25 mg PO Q12H [facility] Last Admin: 11/25/18 11:05 Dose: 25 mg Clonidine HCl (Catapres) 0.1 mg PO TID [facility] Last Admin: 11/25/18 13:15 Dose: 0.1 mg Dextrose (Dextrose 50% Inj) 0 ml IV STAT PRN; Protocol PRN Reason: Hypoglycemia Protocol Dextrose (Glutose 15) 0 gm PO ONCE PRN; Protocol PRN Reason: Hypoglycemia Protocol Docusate Sodium (Colace) 100 mg PO TID [facility] Last Admin: 11/25/18 13:14 Dose: 100 mg Epoetin Huy (Procrit) 10,000 unit IV MWF [facility] Fluticasone/Vilanterol (Breo Ellipta 100-25 Mcg Inh) 1 puff INH RQD [facility] Last Admin: 11/25/18 07:38 Dose: 1 puff Glucagon (Glucagen Diagnostic Kit) 0 mg IM STAT PRN; Protocol PRN Reason: Hypoglycemia Protocol Hydralazine HCl (Apresoline) 100 mg PO TID [facility] Last Admin: 11/25/18 13:15 Dose: 100 mg Dextrose (Dextrose 5% In Water 1000 Ml) 1,000 mls @ 0 mls/hr IV .Q0M PRN; Protocol PRN Reason: Hypoglycemia Protocol Insulin Aspart (Novolog) 0 unit SC ACHS [facility]; Protocol Last Admin: 11/25/18 13:00 Dose: Not Given Insulin Aspart (Novolog Mix 70/30 (70/30 Units/Ml)) 30 units SC ACB [facility] Last Admin: 11/25/18 07:43 Dose: Not Given Insulin Aspart (Novolog Mix 70/30 (70/30 Units/Ml)) 20 units SC ACD [facility] Losartan Potassium (Cozaar) 50 mg PO DAILY [facility] Last Admin: 11/25/18 13:15 Dose: 50 mg Methylprednisolone (Solu-Medrol) 40 mg IV Q12 [facility] Last Admin: 11/25/18 11:06 Dose: 40 mg Metoclopramide HCl (Reglan) 5 mg IVP Q6H [facility] Last Admin: 11/25/18 11:06 Dose: 5 mg Nicotine (Nicoderm Cq) 1 patch TD DAILY [facility] Polyethylene Glycol (Miralax) 17 gm PO BID [facility] Last Admin: 11/25/18 11:03 Dose: 17 gm Rosuvastatin Calcium (Crestor) 5 mg PO HS [facility] Last Admin: 11/24/18 22:29 Dose: 5 mg - Labs Labs: 11/25/18 11:04 11/25/18 11:04 PT 12.8 SECONDS (9.7-12.2) H 11/24/18 11:02 INR 1.2 11/24/18 11:02 APTT 30 SECONDS (21-34) 11/24/18 11:02 - Constitutional Appears: Non-toxic, No Acute Distress - Head Exam Head Exam: NORMAL INSPECTION, NORMOCEPHALIC - Eye Exam Eye Exam: EOMI, Normal appearance - ENT Exam ENT Exam: Mucous Membranes Moist, Normal Exam - Respiratory Exam Respiratory Exam: Clear to Ausculation Bilateral, NORMAL BREATHING PATTERN - Cardiovascular Exam Cardiovascular Exam: REGULAR RHYTHM, +S1, +S2, Murmur - GI/Abdominal Exam GI & Abdominal Exam: Soft, Normal Bowel Sounds. absent: Tenderness - Extremities Exam Extremities Exam: Normal Inspection. absent: Pedal Edema - Neurological Exam Neurological Exam: Alert, Awake, Oriented x3 - Psychiatric Exam Psychiatric exam: Normal Affect, Normal Mood - Skin Skin Exam: Normal Color, Warm Assessment and Plan - Assessment and Plan (Free Text) Assessment: #Abdominal pain, postprandial #New GERD #T2DM, uncontrolled #ESRD on HD #COPD exacerbation #HTN PLAN: -Origin of abdominal pain possibly gastroparesis, GERD, constipation -Recommend blood glucose less than 200 -Continue Reglan -Bowel regimen -Recommend EGD when medically stable to tolerate anaesthesia -Continue PPI -Renal, diabetic diet with small proportions and pureed -NPO PM for possible EGD in AM. Case discussed with Dr. Marie, See attestation
[2018-11-25] MEDS ORDERED: (Novolog Mix 70/30) Insulin Aspart/Insulin Aspar 100 units/ml SC SCH (16:30)
[2018-11-25] MEDS ORDERED: (Novolog) Insulin Aspart, Recombinant 100 u/ml 10 ml vial SC SCH (22:24)
[2018-11-26] MEDS: Albuterol-Ipratrop 3 mg / 0.5 (3 ml) UD INH SCH ×4 (01:20→20:32)
--- NOTE | 2018-11-26 07:23 | CP.PCM.PN ---
Subjective - Date & Time of Evaluation Date of Evaluation: 11/26/18 Time of Evaluation: 07:23 - Subjective Subjective: PGY-1 Sara Crockett D.O. Medicine progress note for Dr. Russel Pollard's service: Patient was seen and examined this morning. Patient is sitting in a chair at bedside. He does not appear in acute distress. He has no acute complaints. Denies chest pain, SOB, and abdominal pain. He is not using supplemental O2. Objective - Vital Signs/Intake and Output Vital Signs (last 24 hours): Temp Pulse Resp BP Pulse Ox 98 F 78 20 174/76 H 100 11/26/18 04:40 11/26/18 05:10 11/26/18 04:40 11/26/18 04:40 11/26/18 04:40 - Medications Medications: Current Medications Albuterol/Ipratropium (Duoneb 3 Mg/0.5 Mg (3 Ml) Ud) 3 ml INH RQ6 [facility] Last Admin: 11/26/18 01:20 Dose: 3 ml Amlodipine Besylate (Norvasc) 10 mg PO DAILY [facility] Belladonna/Phenobarbital () 1 tab PO TID [facility] Last Admin: 11/25/18 17:55 Dose: 1 tab Carvedilol (Coreg) 25 mg PO Q12H [facility] Last Admin: 11/25/18 21:33 Dose: 25 mg Clonidine HCl (Catapres) 0.1 mg PO TID [facility] Last Admin: 11/25/18 21:03 Dose: 0.1 mg Dextrose (Dextrose 50% Inj) 0 ml IV STAT PRN; Protocol PRN Reason: Hypoglycemia Protocol Dextrose (Glutose 15) 0 gm PO ONCE PRN; Protocol PRN Reason: Hypoglycemia Protocol Docusate Sodium (Colace) 100 mg PO TID [facility] Last Admin: 11/25/18 17:54 Dose: 100 mg Epoetin Huy (Procrit) 10,000 unit IV MWF [facility] Fluticasone/Vilanterol (Breo Ellipta 100-25 Mcg Inh) 1 puff INH RQD [facility] Last Admin: 11/25/18 07:38 Dose: 1 puff Glucagon (Glucagen Diagnostic Kit) 0 mg IM STAT PRN; Protocol PRN Reason: Hypoglycemia Protocol Hydralazine HCl (Apresoline) 100 mg PO TID [facility] Last Admin: 11/25/18 17:54 Dose: 100 mg Dextrose (Dextrose 5% In Water 1000 Ml) 1,000 mls @ 0 mls/hr IV .Q0M PRN; Protocol PRN Reason: Hypoglycemia Protocol Insulin Aspart (Novolog Mix 70/30 (70/30 Units/Ml)) 30 units SC ACB [facility] Last Admin: 11/25/18 07:43 Dose: Not Given Insulin Aspart (Novolog Mix 70/30 (70/30 Units/Ml)) 20 units SC ACD [facility] Last Admin: 11/25/18 17:50 Dose: 20 u Insulin Aspart (Novolog) 0 unit SC ACHS [facility]; Protocol Last Admin: 11/25/18 22:44 Dose: 4 u Losartan Potassium (Cozaar) 50 mg PO DAILY [facility] Last Admin: 11/25/18 13:15 Dose: 50 mg Metoclopramide HCl (Reglan) 5 mg IVP Q6H [facility] Last Admin: 11/26/18 04:05 Dose: 5 mg Nicotine (Nicoderm Cq) 1 patch TD DAILY [facility] Last Admin: 11/25/18 14:25 Dose: 1 patch Polyethylene Glycol (Miralax) 17 gm PO BID [facility] Last Admin: 11/25/18 17:55 Dose: 17 gm Prednisone (Prednisone Tab) 50 mg PO ONCE ONE Stop: 11/26/18 10:01 Prednisone (Prednisone Tab) 40 mg PO ONCE ONE Stop: 11/27/18 10:01 Prednisone (Prednisone Tab) 30 mg PO DAILY [facility] Prednisone (Prednisone Tab) 20 mg PO DAILY [facility] Prednisone (Prednisone Tab) 10 mg PO DAILY [facility] Rosuvastatin Calcium (Crestor) 5 mg PO HS [facility] Last Admin: 11/25/18 21:04 Dose: 5 mg - Labs Labs: 11/25/18 11:04 11/25/18 11:04 PT 12.8 SECONDS (9.7-12.2) H 11/24/18 11:02 INR 1.2 11/24/18 11:02 APTT 30 SECONDS (21-34) 11/24/18 11:02 - Additional Findings Additional findings: - Constitutional Appears: Non-toxic, No Acute Distress - Head Exam Head Exam: ATRAUMATIC, NORMAL INSPECTION - Eye Exam Eye Exam: EOMI, Normal appearance - ENT Exam ENT Exam: Mucous Membranes Moist - Neck Exam Neck Exam: Normal Inspection - Respiratory Exam Respiratory Exam: Clear to Ausculation Bilateral, NORMAL BREATHING PATTERN. absent: Accessory Muscle Use, Respiratory Distress - Cardiovascular Exam Cardiovascular Exam: REGULAR RHYTHM, +S1, +S2, Murmur - GI/Abdominal Exam GI & Abdominal Exam: Soft. absent: Distended, Tenderness - Extremities Exam Extremities Exam: Normal Inspection Additional comments: L AVF - Neurological Exam Neurological Exam: Alert, Awake, CN II-XII Intact, Normal Gait, Oriented x3 - Psychiatric Exam Psychiatric exam: Normal Affect, Normal Mood - Skin Skin Exam: Dry, Normal Color, Warm Assessment and Plan - Assessment and Plan (Free Text) Assessment: Patient is a 63 yo male with a history of COPD, CHF, ESRD (HD MWF), and T2DM who presented with SOB. Patient is still smoking cigarettes. Plan: Hypertension, improving - Vitals Q4H - Hydralazine 100 mg PO TID (8AM, 2PM, 8PM) - Clonidine 0.1 mg PO TID (8AM, 2PM, 8PM) - Losartan 50 mg PO daily (2PM) - Coreg 25 mg PO BID (8AM, 8PM) - Norvasc 10 mg PO daily (2PM) - Heart healthy diet- 2 g Na, fluid restriction - Nephrology consulted (Bird)- [facility] HD schedule, may need 4x/wk Chronic obstructive pulmonary disease- acute exacerbation, improving - CXR: Persistent pulmonary venous congestive changes with dense opacity in the left mid to lower lung field likely representing some combination of atelectasis/infiltrate and moderately large effusion. Small right-sided effusion felt be present. - Rep CXR following HD: Stable moderate to large left pleural effusion. No significant interval change. - BCx no growth >3 days - Duoneb Q6H - Breo daily - PO steroid taper until 11/30 - Supplemental O2 via NC PRN Aortic valve stenosis - Echo (11/11): normal systolic function but Aortic valve stenosis, in prior notes it states CHF but this is incorrect - Isabell Stress Test: Normal, EF 69% - Aspirin 81 mg PO daily - Crestor 5 mg PO QHS - Cardiology consulted (Leandro)- stress test 11/25 Anemia- suspect chronic disease, 2/2 renal disease - Iron 62, TIBC low 180, % sat 38, ferritin 926 - EPO Type 2 diabetes mellitus, chronic- poorly controlled - A1c 6.5 - Lipid panel: TG 41, choles 127, LDL 48, HDL 61 - Accuchecks ACHS - Hypoglycemic protocol - ISS ACHS - 70/30 30 units SC ACB, 20 units SC ACD - Endocrinology consulted (Harish) - breastfeeding educator consulted- provided patient with glucometer - Insurance Follow Up Rep consulted Abdominal pain, resolved - Abd US: Partially contracted gallbladder limiting assessment accuracy of its current thickened wall appearance at 3.9 mm. This could be due to underdistention and/or intrinsic gallbladder wall thickening. No stones appreciated. Possible diffuse increased liver echogenicity-can be seen with varying degrees of hepatic steatosis and/or other hepatic parenchymal infiltrative processes. The echogenicity however is not particularly prominent and clinical correlation is advised. The liver is minimally enlarged. - f/u EGD - Protonix 40 mg PO daily - 1 mg PO TID - Reglan 5 mg IVP Q6H - Miralax 17 g PO BID - Colace 100 mg PO TID - GI consult (Frank) End stage renal disease on dialysis, chronic - Nephrology consulted (Bird)- HD on MWF, possibly will need 4x/week Tobacco use disorder, chronic - Highly encouraged cessation - Nicotine patch daily Ppx: VTE: Heparin 5000 units SC Q12H GI: Protonix 40 mg IV Q6H Code status: full code Case discussed with attending, Dr. Russel Pollard.
[2018-11-26 07:37] LABS: BASO # 0.2 K/uL (0.0-0.2); BASO % 1.4 % (0.0-2.0); EOS % 0.4 % (0.0-4.0); HEMOGLOBIN 8.6 g/dL (12.0-18.0); LYMPH # 1.7 K/uL (1.0-4.3); LYMPH % 13.1 % (20.0-40.0); MEAN CELL VOLUME 85.2 fL (80.0-94.0); MEAN CORPUSCULAR HEMOGLOBIN 27.6 pg (27.0-31.0); MEAN CORPUSCULAR HGB CONC 32.4 g/dL (33.0-37.0); MEAN PLATELET VOLUME 7.7 fL (7.2-11.7); MONO # 0.8 K/uL (0.0-0.8); MONO % 6.6 % (0.0-10.0); NEUT % 78.5 % (50.0-75.0); RBC 3.12 Mil/uL (4.40-5.90); RED CELL DISTRIBUTION WIDTH 20.5 % (11.5-14.5); WHITE BLOOD COUNT 12.7 K/uL (4.8-10.8)
[2018-11-26 07:55] LABS: IRON 62 ug/dL (49-181)
[2018-11-26] MEDS: Fluticasone-Vilanterol 100/25mcg Diskus INH SCH (07:56)
[2018-11-26 08:01] LABS: ALBUMIN 3.4 g/dL (3.5-5.0); CALCIUM 7.7 mg/dl (8.6-10.4)
[2018-11-26 08:55] LABS: % IRON SATURATION 38 (20-55); TOTAL IRON BINDING CAPACITY 180 ug/dL (250-450)
[2018-11-26] MEDS ORDERED: EPOETIN ALFA 10,000 UNIT/ML ML IV SCH (09:00)
--- NOTE | 2018-11-26 09:41 | CP.PCM.PN ---
<Lesvia Nur - Last Filed: 11/26/18 17:45> Subjective - Date & Time of Evaluation Date of Evaluation: 11/26/18 Time of Evaluation: 10:00 - Subjective Subjective: Cardiology Progress Note: Patient had EGD procedure today which showed acute gastritis and non-bleeding gastric ulcer. Objective - Vital Signs/Intake and Output Vital Signs (last 24 hours): Temp Pulse Resp BP Pulse Ox 97.3 F L 73 20 151/58 H 96 11/26/18 07:30 11/26/18 07:30 11/26/18 07:30 11/26/18 07:30 11/26/18 07:30 - Medications Medications: Current Medications Albuterol/Ipratropium (Duoneb 3 Mg/0.5 Mg (3 Ml) Ud) 3 ml INH RQ6 [facility] Last Admin: 11/26/18 07:56 Dose: 3 ml Amlodipine Besylate (Norvasc) 10 mg PO DAILY [facility] Belladonna/Phenobarbital () 1 tab PO TID [facility] Last Admin: 11/25/18 17:55 Dose: 1 tab Carvedilol (Coreg) 25 mg PO Q12H [facility] Last Admin: 11/25/18 21:33 Dose: 25 mg Clonidine HCl (Catapres) 0.1 mg PO TID [facility] Last Admin: 11/25/18 21:03 Dose: 0.1 mg Dextrose (Dextrose 50% Inj) 0 ml IV STAT PRN; Protocol PRN Reason: Hypoglycemia Protocol Dextrose (Glutose 15) 0 gm PO ONCE PRN; Protocol PRN Reason: Hypoglycemia Protocol Docusate Sodium (Colace) 100 mg PO TID [facility] Last Admin: 11/25/18 17:54 Dose: 100 mg Epoetin Huy (Procrit) 10,000 unit IV MWF [facility] Fluticasone/Vilanterol (Breo Ellipta 100-25 Mcg Inh) 1 puff INH RQD [facility] Last Admin: 11/26/18 07:56 Dose: 1 puff Glucagon (Glucagen Diagnostic Kit) 0 mg IM STAT PRN; Protocol PRN Reason: Hypoglycemia Protocol Hydralazine HCl (Apresoline) 100 mg PO TID [facility] Last Admin: 11/25/18 17:54 Dose: 100 mg Dextrose (Dextrose 5% In Water 1000 Ml) 1,000 mls @ 0 mls/hr IV .Q0M PRN; Protocol PRN Reason: Hypoglycemia Protocol Insulin Aspart (Novolog Mix 70/30 (70/30 Units/Ml)) 30 units SC ACB [facility] Last Admin: 11/25/18 07:43 Dose: Not Given Insulin Aspart (Novolog Mix 70/30 (70/30 Units/Ml)) 20 units SC ACD [facility] Last Admin: 11/25/18 17:50 Dose: 20 u Insulin Aspart (Novolog) 0 unit SC ACHS [facility]; Protocol Last Admin: 11/25/18 22:44 Dose: 4 u Losartan Potassium (Cozaar) 50 mg PO DAILY [facility] Last Admin: 11/25/18 13:15 Dose: 50 mg Metoclopramide HCl (Reglan) 5 mg IVP Q6H [facility] Last Admin: 11/26/18 04:05 Dose: 5 mg Nicotine (Nicoderm Cq) 1 patch TD DAILY [facility] Last Admin: 11/25/18 14:25 Dose: 1 patch Polyethylene Glycol (Miralax) 17 gm PO BID [facility] Last Admin: 11/25/18 17:55 Dose: 17 gm Prednisone (Prednisone Tab) 50 mg PO ONCE ONE Stop: 11/26/18 10:01 Prednisone (Prednisone Tab) 40 mg PO ONCE ONE Stop: 11/27/18 10:01 Prednisone (Prednisone Tab) 30 mg PO DAILY [facility] Prednisone (Prednisone Tab) 20 mg PO DAILY [facility] Prednisone (Prednisone Tab) 10 mg PO DAILY [facility] Rosuvastatin Calcium (Crestor) 5 mg PO HS [facility] Last Admin: 11/25/18 21:04 Dose: 5 mg - Labs Labs: 11/26/18 07:15 11/26/18 07:15 PT 12.8 SECONDS (9.7-12.2) H 11/24/18 11:02 INR 1.2 11/24/18 11:02 APTT 30 SECONDS (21-34) 11/24/18 11:02 Assessment and Plan - Assessment and Plan (Free Text) Assessment: 63 year old male with past medical history of COPD, CHF, ESRD on HD MWF, DM, and anemia presented to the ED for SOB. History of CHF - BNP 38,800 - patient not on home diuretics; will hold off on diuresis for now - ECHO (11/11/18): EF 65-70%; left atrial pressure mildly elevated; mild concentric left ventricular hypertrophy. Mild valvular aortic stenosis. - Isabell Stress Test: Reviewed by Dr. Reeves; Normal; EF 69% History of HTN - Nephrology Consulted: Dr. Pang- [facility] HD - Medications: * Hydralazine 100mg po tid * Coazaar 50mg po daily * Coreg 25mg po bid * Norvasc 10mg po daily Continue medical management for chronic cardiac conditions. Case discussed with Dr. Leandro Nur PGY-2 <Bob Reeves - Last Filed: 11/27/18 00:11> Objective - Vital Signs/Intake and Output Vital Signs (last 24 hours): Temp Pulse Resp BP Pulse Ox 97.3 F L 68 20 174/74 H 96 11/26/18 17:47 11/26/18 17:47 11/26/18 17:47 11/26/18 22:54 11/26/18 17:47 Intake and Output: 11/26/18 11/27/18 18:59 06:59 Intake Total 100 Balance 100 - Medications Medications: Current Medications Albuterol/Ipratropium (Duoneb 3 Mg/0.5 Mg (3 Ml) Ud) 3 ml INH RQ6 [facility] Last Admin: 11/26/18 20:32 Dose: 3 ml Amlodipine Besylate (Norvasc) 10 mg PO DAILY [facility] Last Admin: 11/26/18 13:17 Dose: Not Given Belladonna/Phenobarbital () 1 tab PO TID [facility] Last Admin: 11/26/18 18:19 Dose: 1 tab Carvedilol (Coreg) 25 mg PO Q12H [facility] Last Admin: 11/26/18 22:54 Dose: 25 mg Clonidine HCl (Catapres) 0.1 mg PO TID [facility] Last Admin: 11/26/18 22:54 Dose: 0.1 mg Dextrose (Dextrose 50% Inj) 0 ml IV STAT PRN; Protocol PRN Reason: Hypoglycemia Protocol Dextrose (Glutose 15) 0 gm PO ONCE PRN; Protocol PRN Reason: Hypoglycemia Protocol Docusate Sodium (Colace) 100 mg PO TID [facility] Last Admin: 11/26/18 18:19 Dose: 100 mg Epoetin Huy (Procrit) 10,000 unit IV [facility] Fluconazole (Diflucan) 100 mg PO DAILY [facility]; Protocol Last Admin: 11/26/18 12:40 Dose: 100 mg Fluticasone/Vilanterol (Breo Ellipta 100-25 Mcg Inh) 1 puff INH RQD [facility] Last Admin: 11/26/18 07:56 Dose: 1 puff Glucagon (Glucagen Diagnostic Kit) 0 mg IM STAT PRN; Protocol PRN Reason: Hypoglycemia Protocol Hydralazine HCl (Apresoline) 100 mg PO TID [facility] Last Admin: 11/26/18 18:18 Dose: 100 mg Dextrose (Dextrose 5% In Water 1000 Ml) 1,000 mls @ 0 mls/hr IV .Q0M PRN; Protocol PRN Reason: Hypoglycemia Protocol Insulin Aspart (Novolog) 0 unit SC ACHS [facility]; Protocol Last Admin: 11/26/18 22:59 Dose: 3 units Insulin Aspart (Novolog Mix 70/30 (70/30 Units/Ml)) 15 units SC ACBD [facility] Losartan Potassium (Cozaar) 50 mg PO DAILY [facility] Last Admin: 11/26/18 12:32 Dose: 50 mg Metoclopramide HCl (Reglan) 5 mg IVP Q6H [facility] Last Admin: 11/26/18 22:57 Dose: 5 mg Nicotine (Nicoderm Cq) 1 patch TD DAILY [facility] Last Admin: 11/26/18 12:31 Dose: 1 patch Pantoprazole Sodium (Protonix Inj) 40 mg IVP Q12 [facility] Last Admin: 11/26/18 22:56 Dose: 40 mg Polyethylene Glycol (Miralax) 17 gm PO BID [facility] Last Admin: 11/26/18 18:19 Dose: 17 gm Prednisone (Prednisone Tab) 40 mg PO ONCE ONE Stop: 11/27/18 10:01 Prednisone (Prednisone Tab) 30 mg PO DAILY [facility] Prednisone (Prednisone Tab) 20 mg PO DAILY [facility] Prednisone (Prednisone Tab) 10 mg PO DAILY [facility] Rosuvastatin Calcium (Crestor) 5 mg PO HS [facility] Last Admin: 11/26/18 22:55 Dose: 5 mg - Labs Labs: 11/26/18 07:15 11/26/18 07:15 PT 12.8 SECONDS (9.7-12.2) H 11/24/18 11:02 INR 1.2 11/24/18 11:02 APTT 30 SECONDS (21-34) 11/24/18 11:02 Assessment and Plan - Assessment and Plan (Free Text) Assessment: Patient seen and evaluated personally by me. Plan of care d/w the the resident and as documented
[2018-11-26] MEDS ORDERED: Propofol 10 mg/ml Inj (20 ML) ONE (10:35)
[2018-11-26] MEDS: POLYETHYLENE GLYCOL 3350 17 GM/Dose PACKET PO SCH ×2 (11:26→18:19)
[2018-11-26] MEDS: Belladonna-Phenobarbital PO SCH ×3 (11:26→18:19)
[2018-11-26] MEDS: (Novolog Mix 70/30) Insulin Aspart/Insulin Aspar 100 units/ml SC SCH (11:27)
[2018-11-26] MEDS: (Novolog) Insulin Aspart, Recombinant 100 u/ml 10 ml vial SC SCH ×4 (11:27→22:59)
--- NOTE | 2018-11-26 13:32 | CP.PCM.PN ---
Subjective - Date & Time of Evaluation Date of Evaluation: 11/26/18 Time of Evaluation: 13:29 - Subjective Subjective: Seen at dialysis UF 3000ml BP better controlled remains edematous s/p nuclear stress test Objective - Vital Signs/Intake and Output Vital Signs (last 24 hours): Temp Pulse Resp BP Pulse Ox 98.6 F 65 18 149/66 100 11/26/18 10:50 11/26/18 11:20 11/26/18 11:20 11/26/18 11:20 11/26/18 11:20 Intake and Output: 11/26/18 11/26/18 06:59 18:59 Intake Total 100 Balance 100 - Medications Medications: Current Medications Albuterol/Ipratropium (Duoneb 3 Mg/0.5 Mg (3 Ml) Ud) 3 ml INH RQ6 [facility] Last Admin: 11/26/18 07:56 Dose: 3 ml Amlodipine Besylate (Norvasc) 10 mg PO DAILY [facility] Last Admin: 11/26/18 13:17 Dose: Not Given Belladonna/Phenobarbital () 1 tab PO TID [facility] Last Admin: 11/26/18 13:22 Dose: Not Given Carvedilol (Coreg) 25 mg PO Q12H [facility] Last Admin: 11/26/18 11:25 Dose: Not Given Clonidine HCl (Catapres) 0.1 mg PO TID [facility] Last Admin: 11/26/18 13:14 Dose: Not Given Dextrose (Dextrose 50% Inj) 0 ml IV STAT PRN; Protocol PRN Reason: Hypoglycemia Protocol Dextrose (Glutose 15) 0 gm PO ONCE PRN; Protocol PRN Reason: Hypoglycemia Protocol Docusate Sodium (Colace) 100 mg PO TID [facility] Last Admin: 11/26/18 13:14 Dose: Not Given Epoetin Huy (Procrit) 10,000 unit IV MWF [facility] Fluconazole (Diflucan) 100 mg PO DAILY [facility]; Protocol Last Admin: 11/26/18 12:40 Dose: 100 mg Fluticasone/Vilanterol (Breo Ellipta 100-25 Mcg Inh) 1 puff INH RQD [facility] Last Admin: 11/26/18 07:56 Dose: 1 puff Glucagon (Glucagen Diagnostic Kit) 0 mg IM STAT PRN; Protocol PRN Reason: Hypoglycemia Protocol Hydralazine HCl (Apresoline) 100 mg PO TID [facility] Last Admin: 11/26/18 13:14 Dose: Not Given Dextrose (Dextrose 5% In Water 1000 Ml) 1,000 mls @ 0 mls/hr IV .Q0M PRN; Protocol PRN Reason: Hypoglycemia Protocol Insulin Aspart (Novolog Mix 70/30 (70/30 Units/Ml)) 30 units SC ACB [facility] Last Admin: 11/26/18 11:27 Dose: Not Given Insulin Aspart (Novolog Mix 70/30 (70/30 Units/Ml)) 20 units SC ACD [facility] Last Admin: 11/25/18 17:50 Dose: 20 u Insulin Aspart (Novolog) 0 unit SC ACHS [facility]; Protocol Last Admin: 11/26/18 12:33 Dose: 4 units Losartan Potassium (Cozaar) 50 mg PO DAILY [facility] Last Admin: 11/26/18 12:32 Dose: 50 mg Metoclopramide HCl (Reglan) 5 mg IVP Q6H [facility] Last Admin: 11/26/18 11:27 Dose: Not Given Nicotine (Nicoderm Cq) 1 patch TD DAILY [facility] Last Admin: 11/26/18 12:31 Dose: 1 patch Pantoprazole Sodium (Protonix Inj) 40 mg IVP Q12 [facility] Last Admin: 11/26/18 11:27 Dose: Not Given Polyethylene Glycol (Miralax) 17 gm PO BID [facility] Last Admin: 11/26/18 11:26 Dose: Not Given Prednisone (Prednisone Tab) 40 mg PO ONCE ONE Stop: 11/27/18 10:01 Prednisone (Prednisone Tab) 30 mg PO DAILY [facility] Prednisone (Prednisone Tab) 20 mg PO DAILY [facility] Prednisone (Prednisone Tab) 10 mg PO DAILY [facility] Rosuvastatin Calcium (Crestor) 5 mg PO HS [facility] Last Admin: 11/25/18 21:04 Dose: 5 mg - Labs Labs: 11/26/18 07:15 11/26/18 07:15 PT 12.8 SECONDS (9.7-12.2) H 11/24/18 11:02 INR 1.2 11/24/18 11:02 APTT 30 SECONDS (21-34) 11/24/18 11:02 - Constitutional Appears: No Acute Distress, Chronically Ill - Head Exam Head Exam: ATRAUMATIC, NORMAL INSPECTION - Eye Exam Eye Exam: EOMI, Normal appearance - Neck Exam Neck Exam: Normal Inspection. absent: Tenderness - Respiratory Exam Respiratory Exam: Decreased Breath Sounds, Clear to Ausculation Bilateral - Cardiovascular Exam Cardiovascular Exam: REGULAR RHYTHM, +S1 - GI/Abdominal Exam GI & Abdominal Exam: Soft. absent: Tenderness - Extremities Exam Extremities Exam: Normal Inspection, Pedal Edema - Neurological Exam Neurological Exam: Awake, CN II-XII Intact - Skin Skin Exam: Dry, Warm Assessment and Plan (1) Fluid overload Status: Acute (2) ESRD (end stage renal disease) Status: Acute (3) Anemia Status: Acute (4) HTN (hypertension), malignant Status: Acute - Assessment and Plan (Free Text) Plan: Monitor BP; same meds for now Check stress test results Cardiology follow up Next dialysis increase UF goal
[2018-11-26] MEDS ORDERED: (Novolog Mix 70/30) Insulin Aspart/Insulin Aspar 100 units/ml SC STA (18:14)
--- NOTE | 2018-11-26 22:11 | CON ---
DATE: 11/26/2018 COVERING FOR: Melissa Moreira MD LOCATION: The patient currently is on [address] [place] [address]. HISTORY OF PRESENT ILLNESS: This 63-year-old [place] male is being seen for diabetes mellitus. The patient basically came to the hospital second time this month with complaints of chest pain, shortness of breath, fluid overload. The past history is positive for diabetes mellitus of many-year duration, more than 25. The patient is on hemodialysis for about 3-1/2 years. There is also a history of COPD, reoccurring CHF, hypertension, and the reason for this admission was again increasing shortness of breath, chest pain, fluid overload, rule out sepsis. The patient was also seen in the emergency room and admitted to the hospital earlier on this month, discharged about four to five days ago, but readmitted with similar complaints. The patient has no allergies to medications. At the present moment, the patient is on multiple cardiac medications. He also is placed on steroid, currently prednisone 50 mg once a day, which will be tapered daily by 10 mg a day according to PCP order. The patient's glucose level was elevated upon admission to the level of 603 and subsequently for the last 12 hours of the stay, it varies from 220 up to 306. The patient had stress test and endoscopy which requires n.p.o. orders for which reason his diabetic medication was withheld twice for the past 12 hours. At the moment, the patient is seen by ____. PHYSICAL EXAMINATION: GENERAL: Essentially stable. VITAL SIGNS: Blood pressure is 160/79, heart rate 68, he is afebrile 97.3. HEENT: Unremarkable. No JVP elevation. LUNGS: Diminished breath sounds, but no rales. COR: S1 and S2 at 68. EXTREMITIES: Lower extremity showed +1 pretibial edema and feet edema as well. LABORATORY DATA: The patient currently is consuming dinner. He appears well and has a good appetite. Blood work: WBC 12.7, hemoglobin is low 8.6, hematocrit 26.6, glucose level today ranges from 226 to 286. Sodium was 128, potassium 4.7, chloride 90, CO2 of 28, BUN is 71, creatinine is 5. IMPRESSION: From endo standpoint is, 1. Longstanding history of diabetes mellitus of over 25-year duration, on three times weekly dialysis for about four years now. Diabetic medications were discontinued about four years ago once the patient became dialysis-dependent. Glucose monitoring on the outpatient basis is revealing levels ranging from 1 to 200, no higher than that. 2. The acute problem is chronic obstructive pulmonary disease exacerbation, rule out myocardial infarction. Hypertensive crisis. Since the patient is currently on steroid, his glycemic control is being affected by that and result in glucose elevations to range as high as 600 initially. PLAN: The plan of therapy would be to place 70/30 insulin treatment. The patient was started on 30 units in the morning, 20 in the evening. At this point, the dosage will be reduced to 15 units subcutaneous b.i.d. On top of that, the patient is receiving medium dose Novolog insulin sliding scale. No oral hypoglycemic agents are being used. Diet: Heart healthy diet is being implemented. The patient was explained the need for home glucose monitoring once released and regular hemoglobin A1c on the outpatient basis as well. Thank you. We will follow this patient along with you. Adrienne Drummond MD
[2018-11-27] MEDS: Albuterol-Ipratrop 3 mg / 0.5 (3 ml) UD INH SCH ×4 (01:23→20:41)
--- NOTE | 2018-11-27 05:43 | CARD ---
APPROVED REPORT Date of service: 11/25/2018 Protocol: LEXISCAN Test Type: LEXISCAN Test Indications: CP CHF Medical History: CP Target HR: 155 bpm Resting ECG: NSR WITH NS ST T CHANGES Resting Heart Rate: 75 bpm Resting Blood Pressure: 150/80mmHg submaximum (85%): 132 bpm TEST SUMMARY [id number]/80.0. INFUSIONDOSE 100:300.00.01.075/.0. [id number]/80.0. PROCEDURE Pharmacologic stress testing was performed using 0.4mg per 5ml of regadenoson given intravenously over 7-10 seconds. POST EXERCISE Reason for Termination: Protocol Completed Target HR: No Max HR: 75 bpm 56% of Maximum Predicted HR: 155 bpm Exercise duration: 00:30 min:sec, 0 Stage Exercise capacity: 1.0METs Max Blood Pressure: 150/80mmHg Blood Pressure response to exercise: normal resting BP - appropriate response Heart Rate response to exercise: appropriate Chest Pain: No, none Angina index: 0 Arrhythmia: No, none ST Change: No, none Deviation: 0 mm INTERPRETATION Stress EKG Conclusion: NEGATIVE LEXISCAN STRESS TEST NORMAL BP RESPONSE TO LEXISCAN NUCLEAR STUDIES TO BE READ SEPARATELY EXAM: Myocardial Perfusion STRESS/REST Imaging Protocol The imaging protocol used to acquire images was Stress Tc-99m/rest Tc-99m 1 day Stress Spect myocardial perfusion imaging was performed in supine position 45 minutes following the injection of 13.1 mCi of Tc-99 Myoview. Gated Rest Spect was performed 43 minutes after intravenous 33 mCi Tc-99 Myoview injection. The images were gated to evaluate regional wall motion and calculate ventricular ejection fraction.Images were reconstructed using backfilter projection method in short horizontal and verticle long axis. Spect slices were generated. RESTING DATA IBA900.02ifZB8.70L/min ESV31.00mlMyocardial Fqdw321.00g Av. Heart Rate81.00bpm EF69.00% STRESS DATA HYV861.94paUF6.30L/min ESV35.00mlMyocardial Cnoz096.00g EF69.00% Regional WT score at stress:1.00 Regional WM score at stress:0.00 Summed WT score at stress:11.00 Av. Heart Rate81.00bpmSummed WM score at stress:0.00 LV Perf. Quant 17 Seg. SSS7.00 17 Seg. SRS4.00 17 Seg. SDS3.00 Stress Defect Extent (% LAD)0.00Rest Defect Extent (% LAD)0.00Rev. Defect Extent (% LAD)0.00 Stress Defect Extent (% LCX)70.00Rest Defect Extent (% LCX)31.30Rev. Defect Extent (% LCX)8.80 Stress Defect Extent (% RCA)4.40Rest Defect Extent (% RCA)2.20Rev. Defect Extent (% RCA)0.00 Stress Defect Extent (% SHELLIE)15.20Rest Defect Extent (% SHELLIE)7.40Rev. Defect Extent (% SHELLIE)1.50 Other Information Quality:Good IMPRESSION Normal Myocardial Perfusion exercise stress study Left Ventricle LV Function:Left ventricle systolic function is normal. The Ejection Fraction is >55%. Metabolism/Perfusion There are no perfusion/metabolism defects. Conclusion 1. Normal Lexiscan Nuclear stress test. Normal EF
--- NOTE | 2018-11-27 06:26 | CP.PCM.PN ---
Subjective - Date & Time of Evaluation Date of Evaluation: 11/27/18 Time of Evaluation: 06:23 - Subjective Subjective: PGY-1 Sara Crockett D.O. Medicine progress note for Dr. Russel Pollard's service: Patient was seen and examined this morning. Patient had no acute complaints. Denies SOB, cough, and stomach pain. Patient acknowledged that he spoke with the life skills educator yesterday. Patient was able to recite back some of what she said. Patient was observed this morning injecting his insulin. He needed a significant amount of instruction. Will continue to reinforce and witness insulin administration throughout the day. Objective - Vital Signs/Intake and Output Vital Signs (last 24 hours): Temp Pulse Resp BP Pulse Ox 97.8 F 75 20 156/71 H 99 11/27/18 04:25 11/27/18 04:25 11/27/18 04:25 11/27/18 04:25 11/27/18 04:25 Intake and Output: 11/26/18 11/27/18 18:59 06:59 Intake Total 100 Balance 100 - Medications Medications: Current Medications Albuterol/Ipratropium (Duoneb 3 Mg/0.5 Mg (3 Ml) Ud) 3 ml INH RQ6 [facility] Last Admin: 11/27/18 01:23 Dose: 3 ml Amlodipine Besylate (Norvasc) 10 mg PO DAILY [facility] Last Admin: 11/26/18 13:17 Dose: Not Given Belladonna/Phenobarbital () 1 tab PO TID [facility] Last Admin: 11/26/18 18:19 Dose: 1 tab Carvedilol (Coreg) 25 mg PO Q12H [facility] Last Admin: 11/26/18 22:54 Dose: 25 mg Clonidine HCl (Catapres) 0.1 mg PO TID [facility] Last Admin: 11/26/18 22:54 Dose: 0.1 mg Dextrose (Dextrose 50% Inj) 0 ml IV STAT PRN; Protocol PRN Reason: Hypoglycemia Protocol Dextrose (Glutose 15) 0 gm PO ONCE PRN; Protocol PRN Reason: Hypoglycemia Protocol Docusate Sodium (Colace) 100 mg PO TID [facility] Last Admin: 11/26/18 18:19 Dose: 100 mg Epoetin Huy (Procrit) 10,000 unit IV MWF [facility] Fluconazole (Diflucan) 100 mg PO DAILY [facility]; Protocol Last Admin: 11/26/18 12:40 Dose: 100 mg Fluticasone/Vilanterol (Breo Ellipta 100-25 Mcg Inh) 1 puff INH RQD [facility] Last Admin: 11/26/18 07:56 Dose: 1 puff Glucagon (Glucagen Diagnostic Kit) 0 mg IM STAT PRN; Protocol PRN Reason: Hypoglycemia Protocol Hydralazine HCl (Apresoline) 100 mg PO TID [facility] Last Admin: 11/26/18 18:18 Dose: 100 mg Dextrose (Dextrose 5% In Water 1000 Ml) 1,000 mls @ 0 mls/hr IV .Q0M PRN; Protocol PRN Reason: Hypoglycemia Protocol Insulin Aspart (Novolog) 0 unit SC ACHS [facility]; Protocol Last Admin: 11/26/18 22:59 Dose: 3 units Insulin Aspart (Novolog Mix 70/30 (70/30 Units/Ml)) 15 units SC ACBD [facility] Losartan Potassium (Cozaar) 50 mg PO DAILY [facility] Last Admin: 11/26/18 12:32 Dose: 50 mg Metoclopramide HCl (Reglan) 5 mg IVP Q6H [facility] Last Admin: 11/27/18 04:49 Dose: 5 mg Nicotine (Nicoderm Cq) 1 patch TD DAILY [facility] Last Admin: 11/26/18 12:31 Dose: 1 patch Pantoprazole Sodium (Protonix Inj) 40 mg IVP Q12 [facility] Last Admin: 11/26/18 22:56 Dose: 40 mg Polyethylene Glycol (Miralax) 17 gm PO BID [facility] Last Admin: 11/26/18 18:19 Dose: 17 gm Prednisone (Prednisone Tab) 40 mg PO ONCE ONE Stop: 11/27/18 10:01 Prednisone (Prednisone Tab) 30 mg PO DAILY [facility] Prednisone (Prednisone Tab) 20 mg PO DAILY [facility] Prednisone (Prednisone Tab) 10 mg PO DAILY [facility] Rosuvastatin Calcium (Crestor) 5 mg PO HS [facility] Last Admin: 11/26/18 22:55 Dose: 5 mg - Labs Labs: 11/26/18 07:15 11/26/18 07:15 PT 12.8 SECONDS (9.7-12.2) H 11/24/18 11:02 INR 1.2 11/24/18 11:02 APTT 30 SECONDS (21-34) 11/24/18 11:02 - Additional Findings Additional findings: - Constitutional Appears: Non-toxic, No Acute Distress - Head Exam Head Exam: ATRAUMATIC, NORMAL INSPECTION - Eye Exam Eye Exam: EOMI, Normal appearance - ENT Exam ENT Exam: Mucous Membranes Moist - Neck Exam Neck Exam: Normal Inspection - Respiratory Exam Respiratory Exam: Clear to Ausculation Bilateral, NORMAL BREATHING PATTERN. absent: Accessory Muscle Use, Respiratory Distress - Cardiovascular Exam Cardiovascular Exam: REGULAR RHYTHM, +S1, +S2, Murmur - GI/Abdominal Exam GI & Abdominal Exam: Soft. absent: Distended, Tenderness - Extremities Exam Extremities Exam: Pedal edema b/l Additional comments: L AVF - Neurological Exam Neurological Exam: Alert, Awake, CN II-XII Intact, Normal Gait, Oriented x3 - Psychiatric Exam Psychiatric exam: Normal Affect, Normal Mood - Skin Skin Exam: Dry, Normal Color, Warm Assessment and Plan - Assessment and Plan (Free Text) Assessment: Patient is a 63 yo male with a history of COPD, CHF, ESRD (HD MWF), and T2DM who presented with SOB. Patient is still smoking cigarettes. Treated for COPD exacerbation. BP also poorly controlled. Changing medication regimen for better control. Patient continuing to get HD. Extra sessions added by nephro as needed. Stress test normal- done due to AV stenosis seen on echo. Patient also complained of abdominal pain. GI consulted- EGD performed, pending CSPY. Plan: Hypertension, poorly controlled - Vitals Q4H - Hydralazine 100 mg PO TID (8AM, 2PM, 8PM) - Increase Clonidine to 0.2 mg PO TID (8AM, 2PM, 8PM) - Losartan 50 mg PO daily (2PM) - Coreg 25 mg PO BID (8AM, 8PM) - Discontinue Norvasc due to swelling - Heart healthy diet- 2 g Na, fluid restriction - Nephrology consulted (Bird)- [facility] HD schedule, may need 4x/wk Chronic obstructive pulmonary disease- acute exacerbation, resolved - CXR: Persistent pulmonary venous congestive changes with dense opacity in the left mid to lower lung field likely representing some combination of atelectasis/infiltrate and moderately large effusion. Small right-sided effusion felt be present. - Rep CXR following HD: Stable moderate to large left pleural effusion. No significant interval change. - BCx no growth >4 days - Duoneb Q6H - Breo daily - Prednisone taper until 11/30 - Supplemental O2 via NC PRN Aortic valve stenosis - Echo (11/11): normal systolic function but Aortic valve stenosis, in prior notes it states CHF but this is incorrect - Isabell Stress Test: Normal, EF 69% - Aspirin 81 mg PO daily - Crestor 5 mg PO QHS - Cardiology consulted (Leandro)- stress test 11/25 Anemia, stable- suspect chronic disease, 2/2 renal disease - Iron 62, TIBC low 180, % sat 38, ferritin 926 - EPO MWF Type 2 diabetes mellitus, chronic- poorly controlled - A1c 6.5 - Lipid panel: TG 41, choles 127, LDL 48, HDL 61 - Accuchecks ACHS - Hypoglycemic protocol - ISS ACHS - 70/30 30 units SC ACB, 20 units SC ACD - Endocrinology consulted (Harish) - life skills educator consulted- provided patient with glucometer, patient needs a significant amount of guidance/instruction for administering insulin - Supply Chain Program Manager consulted Abdominal pain, resolved - Abd US: Partially contracted gallbladder limiting assessment accuracy of its current thickened wall appearance at 3.9 mm. This could be due to underdistention and/or intrinsic gallbladder wall thickening. No stones apprec iated. Possible diffuse increased liver echogenicity-can be seen with varying degrees of hepatic steatosis and/or other hepatic parenchymal infiltrative processes. The echogenicity however is not particularly prominent and clinical correlation is advised. The liver is minimally enlarged. - EGD: grade C candidiasis esophagitis, medium hiatal hernia, acute gastritis, nonbleeding gastric and duodenal ulcers, H. pylori negative - Protonix 40 mg IV Q6H x4 days as per GI (until 11/29) - 1 mg PO TID - Discontinue Reglan 5 mg IVP Q6H - Miralax 17 g PO BID - Colace 100 mg PO TID - Protonix 40 mg IV Q12H - GI consult (Frank)- resume diet, schedule colonoscopy as outpatient, repeat EGD in 10 weeks, PTX 80 mg IV x4 days Esophageal candidiasis - Dx on EGD 11/26 - Diflucan 100 mg PO daily x30 days End stage renal disease on dialysis, chronic - Extra HD today 11/27 - Nephrology consulted (Bird)- HD on MWF, possibly will need 4x/week Tobacco use disorder, chronic - Highly encouraged cessation - Nicotine patch daily Ppx: VTE: Heparin 5000 units SC Q12H GI: Protonix 40 mg IV Q6H x4 days as per GI Code status: full code Case discussed with attending, Dr. Russel Pollard.
[2018-11-27 07:09] LABS: BASO % 0.2 % (0.0-2.0); EOS % 0.4 % (0.0-4.0); HEMOGLOBIN 8.7 g/dL (12.0-18.0); LYMPH % 12.4 % (20.0-40.0); MEAN CORPUSCULAR HEMOGLOBIN 27.5 pg (27.0-31.0); MEAN PLATELET VOLUME 7.5 fL (7.2-11.7); MONO # 0.6 K/uL (0.0-0.8); MONO % 7.2 % (0.0-10.0); NEUT # 6.5 K/uL (1.8-7.0); NEUT % 79.8 % (50.0-75.0); NRBC % 0.1 % (0.0-2.0); RBC 3.18 Mil/uL (4.40-5.90); RED CELL DISTRIBUTION WIDTH 21.9 % (11.5-14.5); WHITE BLOOD COUNT 8.2 K/uL (4.8-10.8)
[2018-11-27 07:46] LABS: ALB/GLOB RATIO 0.9 (1.0-2.1); ALBUMIN 3.3 g/dL (3.5-5.0); CALCIUM 7.3 mg/dl (8.6-10.4)
[2018-11-27] MEDS: Fluticasone-Vilanterol 100/25mcg Diskus INH SCH (08:05)
[2018-11-27] MEDS: Belladonna-Phenobarbital PO SCH ×2 (09:12→15:04)
[2018-11-27] MEDS: POLYETHYLENE GLYCOL 3350 17 GM/Dose PACKET PO SCH ×2 (09:13→21:24)
[2018-11-27] MEDS: (Novolog) Insulin Aspart, Recombinant 100 u/ml 10 ml vial SC SCH ×4 (09:14→21:21)
[2018-11-27] MEDS: (Novolog Mix 70/30) Insulin Aspart/Insulin Aspar 100 units/ml SC SCH ×2 (09:21→18:28)
--- NOTE | 2018-11-27 09:33 | CP.PCM.PN ---
Subjective - Date & Time of Evaluation Date of Evaluation: 11/27/18 Time of Evaluation: 09:29 - Subjective Subjective: s/p dialysis 11/26- UF 4000ml EST- reported as normalBP still elevated still very edematous Objective - Vital Signs/Intake and Output Vital Signs (last 24 hours): Temp Pulse Resp BP Pulse Ox 97.4 F L 66 20 163/80 H 97 11/27/18 07:30 11/27/18 07:30 11/27/18 07:30 11/27/18 09:12 11/27/18 07:30 - Medications Medications: Current Medications Albuterol/Ipratropium (Duoneb 3 Mg/0.5 Mg (3 Ml) Ud) 3 ml INH RQ6 [facility] Last Admin: 11/27/18 08:05 Dose: 3 ml Amlodipine Besylate (Norvasc) 10 mg PO DAILY [facility] Last Admin: 11/27/18 09:12 Dose: 10 mg Belladonna/Phenobarbital () 1 tab PO TID [facility] Last Admin: 11/27/18 09:12 Dose: 1 tab Carvedilol (Coreg) 25 mg PO Q12H [facility] Last Admin: 11/27/18 09:12 Dose: 25 mg Clonidine HCl (Catapres) 0.1 mg PO TID [facility] Last Admin: 11/27/18 09:12 Dose: 0.1 mg Dextrose (Dextrose 50% Inj) 0 ml IV STAT PRN; Protocol PRN Reason: Hypoglycemia Protocol Dextrose (Glutose 15) 0 gm PO ONCE PRN; Protocol PRN Reason: Hypoglycemia Protocol Docusate Sodium (Colace) 100 mg PO TID [facility] Last Admin: 11/27/18 09:13 Dose: 100 mg Epoetin Huy (Procrit) 10,000 unit IV MWF [facility] Fluconazole (Diflucan) 100 mg PO DAILY [facility]; Protocol Last Admin: 11/27/18 09:13 Dose: 100 mg Fluticasone/Vilanterol (Breo Ellipta 100-25 Mcg Inh) 1 puff INH RQD [facility] Last Admin: 11/27/18 08:05 Dose: Not Given Glucagon (Glucagen Diagnostic Kit) 0 mg IM STAT PRN; Protocol PRN Reason: Hypoglycemia Protocol Hydralazine HCl (Apresoline) 100 mg PO TID [facility] Last Admin: 11/27/18 09:12 Dose: 100 mg Dextrose (Dextrose 5% In Water 1000 Ml) 1,000 mls @ 0 mls/hr IV .Q0M PRN; Protocol PRN Reason: Hypoglycemia Protocol Insulin Aspart (Novolog) 0 unit SC ACHS [facility]; Protocol Last Admin: 11/27/18 09:14 Dose: 4 units Insulin Aspart (Novolog Mix 70/30 (70/30 Units/Ml)) 15 units SC ACBD [facility] Last Admin: 11/27/18 09:21 Dose: 15 units Losartan Potassium (Cozaar) 50 mg PO DAILY [facility] Last Admin: 11/27/18 09:24 Dose: 50 mg Metoclopramide HCl (Reglan) 5 mg IVP Q6H [facility] Last Admin: 11/27/18 09:13 Dose: 5 mg Nicotine (Nicoderm Cq) 1 patch TD DAILY [facility] Last Admin: 11/27/18 09:13 Dose: 1 patch Pantoprazole Sodium (Protonix Inj) 40 mg IVP Q12 [facility] Last Admin: 11/27/18 09:13 Dose: 40 mg Polyethylene Glycol (Miralax) 17 gm PO BID [facility] Last Admin: 11/27/18 09:13 Dose: 17 gm Prednisone (Prednisone Tab) 40 mg PO ONCE ONE Stop: 11/27/18 10:01 Last Admin: 11/27/18 09:13 Dose: 40 mg Prednisone (Prednisone Tab) 30 mg PO DAILY [facility] Prednisone (Prednisone Tab) 20 mg PO DAILY [facility] Prednisone (Prednisone Tab) 10 mg PO DAILY [facility] Rosuvastatin Calcium (Crestor) 5 mg PO HS [facility] Last Admin: 11/26/18 22:55 Dose: 5 mg - Labs Labs: 11/27/18 07:00 11/27/18 07:00 PT 12.8 SECONDS (9.7-12.2) H 11/24/18 11:02 INR 1.2 11/24/18 11:02 APTT 30 SECONDS (21-34) 11/24/18 11:02 - Constitutional Appears: No Acute Distress, Chronically Ill - Head Exam Head Exam: ATRAUMATIC, NORMAL INSPECTION - Eye Exam Eye Exam: EOMI, Normal appearance - Neck Exam Neck Exam: Normal Inspection. absent: Tenderness - Respiratory Exam Respiratory Exam: Clear to Ausculation Bilateral, NORMAL BREATHING PATTERN - Cardiovascular Exam Cardiovascular Exam: REGULAR RHYTHM, +S1 - GI/Abdominal Exam GI & Abdominal Exam: Soft. absent: Tenderness - Extremities Exam Extremities Exam: Pedal Edema. absent: Tenderness - Neurological Exam Neurological Exam: Awake, CN II-XII Intact - Skin Skin Exam: Dry, Warm Assessment and Plan (1) Fluid overload Status: Acute (2) ESRD (end stage renal disease) Status: Acute (3) Anemia Status: Acute (4) HTN (hypertension), malignant Status: Acute - Assessment and Plan (Free Text) Plan: stop amlodipine due to edema increase clonidine extra dialysis today, repeat again in AM continue EPO
[2018-11-27] MEDS ORDERED: EPOETIN ALFA 10,000 UNIT/ML ML SC ONE ×2 (10:00→12:30)
[2018-11-27] MEDS ORDERED: Epoetin Alfa 10,000 unit/ml Dialysis IV SCH (17:45)
--- NOTE | 2018-11-27 17:55 | CP.PCM.PN ---
Subjective - Date & Time of Evaluation Date of Evaluation: 11/27/18 Time of Evaluation: 17:52 - Subjective Subjective: Tolerating diet, no vomiting or abdominal pain. Objective - Vital Signs/Intake and Output Vital Signs (last 24 hours): Temp Pulse Resp BP Pulse Ox 98 F 66 18 133/67 98 11/27/18 13:48 11/27/18 13:48 11/27/18 13:48 11/27/18 14:55 11/27/18 13:48 Intake and Output: 11/27/18 11/27/18 06:59 18:59 Intake Total 400 Balance 400 - Medications Medications: Current Medications Albuterol/Ipratropium (Duoneb 3 Mg/0.5 Mg (3 Ml) Ud) 3 ml INH RQ6 [facility] Last Admin: 11/27/18 13:35 Dose: Not Given Carvedilol (Coreg) 25 mg PO Q12H [facility] Last Admin: 11/27/18 09:12 Dose: 25 mg Clonidine HCl (Catapres) 0.2 mg PO TID [facility] Last Admin: 11/27/18 15:04 Dose: Not Given Dextrose (Dextrose 50% Inj) 0 ml IV STAT PRN; Protocol PRN Reason: Hypoglycemia Protocol Dextrose (Glutose 15) 0 gm PO ONCE PRN; Protocol PRN Reason: Hypoglycemia Protocol Epoetin Huy (Procrit) 10,000 unit IV TTS [facility] Fluconazole (Diflucan) 100 mg PO DAILY [facility]; Protocol Stop: 12/17/18 12:01 Last Admin: 11/27/18 09:13 Dose: 100 mg Fluticasone/Vilanterol (Breo Ellipta 100-25 Mcg Inh) 1 puff INH RQD [facility] Last Admin: 11/27/18 08:05 Dose: Not Given Glucagon (Glucagen Diagnostic Kit) 0 mg IM STAT PRN; Protocol PRN Reason: Hypoglycemia Protocol Hydralazine HCl (Apresoline) 100 mg PO TID [facility] Last Admin: 11/27/18 15:04 Dose: Not Given Dextrose (Dextrose 5% In Water 1000 Ml) 1,000 mls @ 0 mls/hr IV .Q0M PRN; Protocol PRN Reason: Hypoglycemia Protocol Insulin Aspart (Novolog) 0 unit SC ACHS [facility]; Protocol Last Admin: 11/27/18 11:51 Dose: Not Given Insulin Aspart (Novolog Mix 70/30 (70/30 Units/Ml)) 15 units SC ACBD [facility] Last Admin: 11/27/18 09:21 Dose: 15 units Losartan Potassium (Cozaar) 50 mg PO DAILY [facility] Last Admin: 11/27/18 09:24 Dose: 50 mg Nicotine (Nicoderm Cq) 1 patch TD DAILY [facility] Last Admin: 11/27/18 09:13 Dose: 1 patch Pantoprazole Sodium (Protonix Inj) 40 mg IVP Q12 [facility] Last Admin: 11/27/18 09:13 Dose: 40 mg Polyethylene Glycol (Miralax) 17 gm PO BID [facility] Last Admin: 11/27/18 09:13 Dose: 17 gm Prednisone (Prednisone Tab) 30 mg PO DAILY [facility] Prednisone (Prednisone Tab) 20 mg PO DAILY [facility] Prednisone (Prednisone Tab) 10 mg PO DAILY [facility] Rosuvastatin Calcium (Crestor) 5 mg PO HS [facility] Last Admin: 11/26/18 22:55 Dose: 5 mg - Labs Labs: 11/27/18 07:00 11/27/18 07:00 PT 12.8 SECONDS (9.7-12.2) H 11/24/18 11:02 INR 1.2 11/24/18 11:02 APTT 30 SECONDS (21-34) 11/24/18 11:02 - Constitutional Appears: Non-toxic, No Acute Distress - Respiratory Exam Respiratory Exam: Clear to Ausculation Bilateral, NORMAL BREATHING PATTERN - GI/Abdominal Exam GI & Abdominal Exam: Soft, Normal Bowel Sounds. absent: Tenderness - Neurological Exam Neurological Exam: Alert, Awake, Oriented x3 Assessment and Plan - Assessment and Plan (Free Text) Assessment: #Esophageal candidiasis #Abdominal pain, postprandial #New GERD #T2DM, uncontrolled #ESRD on HD #COPD exacerbation #HTN PLAN: -s/p EGD 11/26/18 -Recommend blood glucose less than 200 -Bowel regimen -Continue PPI -Fluconazole x 14-21 days -Renal, diabetic diet with small proportions and pureed -Recommend colonoscopy as an outpatient Case discussed with Dr. Marie, See attestation
--- NOTE | 2018-11-27 21:57 | CP.PCM.PN ---
Subjective - Date & Time of Evaluation Date of Evaluation: 11/27/18 Time of Evaluation: 21:56 - Subjective Subjective: Patient seen and evaluated this eveniing Stress test: Normal CAD CRF on HD Medical mgt Objective - Vital Signs/Intake and Output Vital Signs (last 24 hours): Temp Pulse Resp BP Pulse Ox 97.9 F 70 20 162/70 H 100 11/27/18 18:25 11/27/18 21:26 11/27/18 18:25 11/27/18 21:26 11/27/18 18:25 Intake and Output: 11/27/18 11/28/18 18:59 06:59 Intake Total 400 Balance 400 - Medications Medications: Current Medications Albuterol/Ipratropium (Duoneb 3 Mg/0.5 Mg (3 Ml) Ud) 3 ml INH RQ6 [facility] Last Admin: 11/27/18 20:41 Dose: 3 ml Carvedilol (Coreg) 25 mg PO Q12H [facility] Last Admin: 11/27/18 20:10 Dose: 25 mg Clonidine HCl (Catapres) 0.2 mg PO TID [facility] Last Admin: 11/27/18 21:26 Dose: 0.2 mg Dextrose (Dextrose 50% Inj) 0 ml IV STAT PRN; Protocol PRN Reason: Hypoglycemia Protocol Dextrose (Glutose 15) 0 gm PO ONCE PRN; Protocol PRN Reason: Hypoglycemia Protocol Epoetin Huy (Procrit) 10,000 unit IV MWF [facility] Fluconazole (Diflucan) 100 mg PO DAILY [facility]; Protocol Stop: 12/17/18 12:01 Last Admin: 11/27/18 09:13 Dose: 100 mg Fluticasone/Vilanterol (Breo Ellipta 100-25 Mcg Inh) 1 puff INH RQD [facility] Last Admin: 11/27/18 08:05 Dose: Not Given Glucagon (Glucagen Diagnostic Kit) 0 mg IM STAT PRN; Protocol PRN Reason: Hypoglycemia Protocol Hydralazine HCl (Apresoline) 100 mg PO TID [facility] Last Admin: 11/27/18 18:26 Dose: 100 mg Dextrose (Dextrose 5% In Water 1000 Ml) 1,000 mls @ 0 mls/hr IV .Q0M PRN; Protocol PRN Reason: Hypoglycemia Protocol Insulin Aspart (Novolog) 0 unit SC ACHS [facility]; Protocol Last Admin: 11/27/18 21:21 Dose: 4 units Insulin Aspart (Novolog Mix 70/30 (70/30 Units/Ml)) 15 units SC ACBD [facility] Last Admin: 11/27/18 18:28 Dose: 15 units Losartan Potassium (Cozaar) 50 mg PO DAILY [facility] Last Admin: 11/27/18 09:24 Dose: 50 mg Nicotine (Nicoderm Cq) 1 patch TD DAILY [facility] Last Admin: 11/27/18 09:13 Dose: 1 patch Pantoprazole Sodium (Protonix Inj) 40 mg IVP Q12 [facility] Last Admin: 11/27/18 21:23 Dose: 40 mg Polyethylene Glycol (Miralax) 17 gm PO BID [facility] Last Admin: 11/27/18 21:24 Dose: 17 gm Prednisone (Prednisone Tab) 30 mg PO DAILY [facility] Prednisone (Prednisone Tab) 20 mg PO DAILY [facility] Prednisone (Prednisone Tab) 10 mg PO DAILY [facility] Rosuvastatin Calcium (Crestor) 5 mg PO HS [facility] Last Admin: 11/27/18 21:23 Dose: 5 mg - Labs Labs: 11/27/18 07:00 11/27/18 07:00 PT 12.8 SECONDS (9.7-12.2) H 11/24/18 11:02 INR 1.2 11/24/18 11:02 APTT 30 SECONDS (21-34) 11/24/18 11:02
[2018-11-28] MEDS: Albuterol-Ipratrop 3 mg / 0.5 (3 ml) UD INH SCH ×3 (01:17→13:27)
--- NOTE | 2018-11-28 07:05 | CP.PCM.DIS ---
Provider - Provider Date of Admission: 11/22/18 21:32 Attending physician: Russel Pollard MD Primary care physician: none Consults: 11/23/18 02:20 Nephrology Consult Routine Comment: Consulting Provider: Familia Pang Consulting Physician: Familia Pang Reason for Consult: ESRD on HD MWF 11/23/18 11:53 Cardiology Consult Routine Comment: Consulting Provider: Bob Reeves Consulting Physician: Bob Reeves Reason for Consult: Echo on 11-11 shows aortic valve stenosis 11/23/18 18:05 Gastroenterology Consult Routine Comment: Consulting Provider: Gabby Marie Consulting Physician: Gabby Marie Reason for Consult: epigastric pain 11/24/18 11:43 Endocrinology Consult Routine Comment: Consulting Provider: Melissa Moreira Consulting Physician: Melissa Moreira Reason for Consult: Uncontrolled Glucose. On Steroid for COPD. Hx ESRD. PO meds? 11/24/18 11:46 Diabetic Education Referral Routine Comment: Thank you! Physician Instructions: Educate patient on Insulin Use, Provide Glucometer Reason For Exam: Hx DM not on any meds. Steroid for COPD. Hx ESRD 11/26/18 18:24 Endocrinology Consult Routine Comment: Consulting Provider: Adrienne Drummond Consulting Physician: Adrienne Drummond Reason for Consult: Hyperglycemia Time Spent in preparation of Discharge (in minutes): 45 Diagnosis - Discharge Diagnosis (1) COPD exacerbation Status: Resolved Priority: High (2) Poorly controlled diabetes mellitus Status: Chronic Priority: High (3) HTN (hypertension) Status: Chronic Priority: Medium (4) Abdominal pain Status: Resolved Priority: Medium (5) ESRD on dialysis Status: Chronic Priority: Medium (6) Aortic stenosis Status: Chronic Priority: Low (7) Anemia Status: Chronic Priority: Low (8) Tobacco use disorder Status: Chronic Priority: Medium Hospital Course - Lab Results Lab Results: Micro Results 11/22/18 20:40 Blood Blood Culture - Final NO GROWTH AFTER 5 DAYS 11/22/18 20:40 Blood Gram Stain - Final TEST NOT PERFORMED 11/22/18 20:10 Blood Blood Culture - Final NO GROWTH AFTER 5 DAYS 11/22/18 20:10 Blood Gram Stain - Final TEST NOT PERFORMED Most Recent Lab Values WBC 8.2 K/uL (4.8-10.8) 11/27/18 07:00 RBC 3.18 Mil/uL (4.40-5.90) L 11/27/18 07:00 Hgb 8.7 g/dL (12.0-18.0) L 11/27/18 07:00 Hct 27.3 % (35.0-51.0) L 11/27/18 07:00 MCV 86.0 fL (80.0-94.0) 11/27/18 07:00 MCH 27.5 pg (27.0-31.0) 11/27/18 07:00 MCHC 32.0 g/dL (33.0-37.0) L 11/27/18 07:00 RDW 21.9 % (11.5-14.5) H 11/27/18 07:00 Plt Count 240 K/uL (130-400) 11/27/18 07:00 MPV 7.5 fL (7.2-11.7) 11/27/18 07:00 Neut % (Auto) 79.8 % (50.0-75.0) H 11/27/18 07:00 Lymph % (Auto) 12.4 % (20.0-40.0) L 11/27/18 07:00 Gallia % (Auto) 7.2 % (0.0-10.0) 11/27/18 07:00 Eos % (Auto) 0.4 % (0.0-4.0) 11/27/18 07:00 Baso % (Auto) 0.2 % (0.0-2.0) 11/27/18 07:00 Neut # (Auto) 6.5 K/uL (1.8-7.0) 11/27/18 07:00 Lymph # (Auto) 1.0 K/uL (1.0-4.3) 11/27/18 07:00 Gallia # (Auto) 0.6 K/uL (0.0-0.8) 11/27/18 07:00 Eos # (Auto) 0.0 K/uL (0.0-0.7) 11/27/18 07:00 Baso # (Auto) 0.0 K/uL (0.0-0.2) 11/27/18 07:00 Neutrophils % (Manual) 90 % (50-75) H 11/25/18 11:04 Band Neutrophils % 4 % (0-2) H 11/24/18 07:17 Lymphocytes % (Manual) 6 % (20-40) L 11/25/18 11:04 Monocytes % (Manual) 4 % (0-10) 11/25/18 11:04 Platelet Estimate Normal (NORMAL) 11/25/18 11:04 Hypochromasia (manual) Slight 11/25/18 11:04 Poikilocytosis (manual Slight 11/23/18 13:54 Anisocytosis (manual) Moderate 11/25/18 11:04 Tear Drop Cells Slight 11/23/18 13:54 Ovalocytes Slight 11/23/18 13:54 Duyen Cells Slight 11/23/18 13:54 PT 12.8 SECONDS (9.7-12.2) H 11/24/18 11:02 INR 1.2 11/24/18 11:02 APTT 30 SECONDS (21-34) 11/24/18 11:02 Sodium 132 mmol/L (132-148) 11/27/18 07:00 Potassium 4.4 mmol/L (3.6-5.2) 11/27/18 07:00 Chloride 94 mmol/L (98-107) L 11/27/18 07:00 Carbon Dioxide 28 mmol/L (22-30) 11/27/18 07:00 Anion Gap 15 (10-20) 11/27/18 07:00 BUN 46 mg/dL (9-20) H 11/27/18 07:00 Creatinine 3.6 mg/dL (0.8-1.5) H 11/27/18 07:00 Est GFR ( Amer) 11/27/18 07:00 Est GFR (Non-Af Amer) 17 11/27/18 07:00 POC Glucose (mg/dL) 315 mg/dL (65-110) H 11/28/18 06:42 Random Glucose 232 mg/dL (75-110) H 11/27/18 07:00 Hemoglobin A1c 6.8 % (4.2-6.5) H 11/23/18 13:54 Calcium 7.3 mg/dl (8.6-10.4) L 11/27/18 07:00 Phosphorus 3.2 mg/dL (2.5-4.5) 11/27/18 07:00 Magnesium 1.8 mg/dL (1.6-2.3) 11/27/18 07:00 Iron 62 ug/dL (49-181) 11/26/18 07:15 TIBC 180 ug/dL (250-450) L 11/26/18 07:15 % Saturation 38 (20-55) 11/26/18 07:15 Ferritin 926.0 ng/mL 11/26/18 07:15 Total Bilirubin 0.6 mg/dL (0.2-1.3) 11/27/18 07:00 AST 28 U/L (17-59) 11/27/18 07:00 ALT 47 U/L (21-72) 11/27/18 07:00 Alkaline Phosphatase 134 U/L (38-126) H D 11/27/18 07:00 Troponin I 0.0270 ng/mL (0.00-0.120) 11/22/18 20:26 NT-Pro-B Natriuret Pep 71357 pg/mL (0-900) H 11/23/18 13:54 Total Protein 6.9 g/dL (6.3-8.3) 11/27/18 07:00 Albumin 3.3 g/dL (3.5-5.0) L 11/27/18 07:00 Globulin 3.6 gm/dL (2.2-3.9) 11/27/18 07:00 Albumin/Globulin Ratio 0.9 (1.0-2.1) L 11/27/18 07:00 Triglycerides 41 mg/dL (0-149) 11/26/18 07:15 Cholesterol 127 mg/dL (0-199) 11/26/18 07:15 LDL Cholesterol Direct 48 mg/dL (0-129) 11/26/18 07:15 HDL Cholesterol 61 mg/dL (30-70) 11/26/18 07:15 Amylase 64 U/L (30-110) 11/24/18 11:02 Lipase 78 U/L (23-300) 11/24/18 11:02 Carcinoembryonic Ag 3.9 ng/mL (0-3.0) H 11/24/18 11:02 CA 19-9 Antigen < 1.4 U/mL (0-37) 11/24/18 11:02 - Hospital Course Hospital Course: 63 y/o male with PMHx of COPD, CHF, ESRD on HD MWF, DM, and anemia in the ED for SOB happening today. Patient used inhaler three times without relief. He states he has two different inhalers at home one every 6 hours and one ever 24 hours. The SOB happens at rest and today happened when he was laying down. Patient st ates he has a breathing machine at home he uses every 4 hours and that helps a little. Patient denies having home oxygen. Patient denies chest pain, palpitations, cough, wheezing, nausea, vomiting, diarrhea, fevers, chills, night sweats. Of note, patient admitted 11/11-11/15/18 for respiratory distress and documented to have left AMA. Patient was treated with nebulizers and steroid taper for bronchitis/COPD. he was repeatedly educated on smoking cessation. Vitals were monitored Q6H. Blood pressure was initially persistently elevated SBP>160. Medications were adjusted until BP was better controlled. Echo from earlier this month showed aortic stenosis. Cardiology saw the patient. Patient had a stress test, which was normal. A1c was 6.5. However, Accuchecks were initially 300->500. Patient was placed on a diabetic and renal diet, but nursing reported patient was continually eating extra snacks. Diabetic education was provided by physicians and breastfeeding educator. Patient's anemia was stable throughout hospitalization. He was given EPO during HD. Iron studies within normal limits. Nephrology saw the patient. He was continued on his MWF dialysis in addition to a few more extra sessions. GI saw patient for abdominal pain. Abdominal US showed diffuse increased liver echogenicity. He had an EGD that found nonbleeding ulcers and esophageal Candidiasis. They recommended colonoscopy as outpatient. Upon discharge, patient was not short of breath or wheezing. His BP and glucose were much better controlled. His vitals were stable. Patient was given materials for glucose monitoring. He was educated on diabetes management, including proper diet, glucose monitoring, and insulin administration. Patient was able to repeat back instructions and he was observed administering his own insulin. Discharge Exam - Head Exam Head Exam: ATRAUMATIC, NORMAL INSPECTION - Eye Exam Eye Exam: EOMI, Normal appearance - ENT Exam ENT Exam: Mucous Membranes Moist - Neck Exam Neck exam: Normal Inspection - Respiratory Exam Respiratory Exam: Clear to PA & Lateral, NORMAL BREATHING PATTERN, UNREMARKABLE. absent: Accessory Muscle Use, Wheezes, Respiratory Distress - Cardiovascular Exam Cardiovascular Exam: REGULAR RHYTHM, +S1, +S2, Systolic Murmur - GI/Abdominal Exam GI & Abdominal Exam: Soft, Unremarkable. absent: Distended, Tenderness - Extremities Exam Extremities exam: pedal edema, pedal pulses present - Neurological Exam Neurological exam: Alert, CN II-XII Intact, Normal Gait, Oriented x3 - Psychiatric Exam Psychiatric exam: Normal Affect, Normal Mood - Skin Skin Exam: Dry, Normal Color, Warm Discharge Plan - Discharge Medications Prescriptions: cloNIDine [Catapres] 0.2 mg PO TID #90 tab Fluconazole [Diflucan] 100 mg PO DAILY #20 tab hydrALAZINE [Apresoline] 100 mg PO TID #90 tab Insulin Aspart/Insulin Aspar [Novolog Mix 70/30 (70/30 units/ml)] 15 units SC ACBD #10 vial Losartan [Cozaar] 50 mg PO DAILY #30 tab Pantoprazole [Protonix] 40 mg PO DAILY #30 ect predniSONE [predniSONE Tab] 10 mg PO DAILY #3 tab Syringe and Needle,Insulin,1Ml [Insulin Syringe] 1 each [facility] #100 disp.syrin - Follow Up Plan Condition: IMPROVED Disposition: HOME/ ROUTINE Patient education suggested?: Yes Instructions: Insulin Aspart Protamine and Insulin Aspart, Diabetes Exchange Diet, Dialysis Diet , Heart Failure, Adult (DC), Diabetes Diet , Exacerbation of COPD (DC), Fluconazole, Losartan, Prednisone, End Stage Kidney Disease (DC) Additional Instructions: Please establish care at the [facility] at [facility]. This will serve as your primary care provider and help coordinate your healthcare. They will provide you with medication refills and give you referrals for specialists. Call [phone] to make an appointment. Follow-up with gastroenterology. You need a colonoscopy as an outpatient. Follow-up with endocrinology to continue proper management of your diabetes. Follow-up with cardiology to continue management of your heart disease and high blood pressure. Follow-up with pulmonology to continue management of your COPD. Continue to go to dialysis as instructed. Take all medications as prescribed. Prescriptions you already have: Ventolin (Albuterol) every 6 hours as needed for shortness of breath Breo (Fluticasone/Vilanterol) inhaler daily (8AM) Aspirin 81 mg daily (8AM) Coreg (Carvedilol) 25 mg two times daily (8AM, 8PM) Crestor (Rosuvastatin) 5 mg at night (8PM) Calcitriol 0.75 mcg daily (8AM) STOP taking Norvasc New prescriptions: Prednisone 20 mg (2 tabs) tomorrow Wednesday 11/29, 10 mg (1 tab) on Thursday 11/30 Diflucan (Fluconazole) 100 mg daily until 12/07/18 (8AM) Insulin 70/30 15 units before breakfast and before dinner Losartan (Cozaar) 50 mg daily (2PM) Clonidine (Catapress) 0.2 mg PO three times daily (8AM, 2PM, 8PM) Hydralazine (Apresoline) 100 mg PO three times daily (8AM, 2PM, 8PM) Pantoprazole (Protonix) 40 mg daily (8AM) You may buy Miralax [id number] and take as often as you need for constipation. Check your blood sugar as instructed. Bring your glucose log to your doctors' appointments. It is very important that you STOP smoking. You may use nicotine patches or gum [id number] if you need help. You may also call 6-120-MEGC-NOW if you need further assistance. If symptoms recur, return to the nearest emergency department. Referrals: [facility] at [facility] [Outside] Bob Reeves MD [Staff Provider] - Melissa Moreira MD [Medical Doctor] - Familia Pang MD [Staff Provider] - Gabby Marie [Staff Provider] -
[2018-11-28] MEDS: Fluticasone-Vilanterol 100/25mcg Diskus INH SCH (07:28)
[2018-11-28 07:38] LABS: BASO # 0.1 K/uL (0.0-0.2); BASO % 1.3 % (0.0-2.0); EOS # 0.1 K/uL (0.0-0.7); EOS % 1.2 % (0.0-4.0); HEMOGLOBIN 8.5 g/dL (12.0-18.0); LYMPH # 1.3 K/uL (1.0-4.3); LYMPH % 17.5 % (20.0-40.0); MEAN CELL VOLUME 86.7 fL (80.0-94.0); MEAN CORPUSCULAR HEMOGLOBIN 28.2 pg (27.0-31.0); MEAN CORPUSCULAR HGB CONC 32.5 g/dL (33.0-37.0); MONO # 0.7 K/uL (0.0-0.8); MONO % 9.5 % (0.0-10.0); NEUT # 5.3 K/uL (1.8-7.0); NEUT % 70.5 % (50.0-75.0); NRBC % 0.1 % (0.0-2.0); RBC 3.02 Mil/uL (4.40-5.90); RED CELL DISTRIBUTION WIDTH 23.2 % (11.5-14.5); WHITE BLOOD COUNT 7.5 K/uL (4.8-10.8)
[2018-11-28 08:04] LABS: ALBUMIN 3.1 g/dL (3.5-5.0); CALCIUM 7.2 mg/dl (8.6-10.4)
[2018-11-28] MEDS: (Novolog) Insulin Aspart, Recombinant 100 u/ml 10 ml vial SC SCH ×3 (08:09→18:20)
[2018-11-28] MEDS: (Novolog Mix 70/30) Insulin Aspart/Insulin Aspar 100 units/ml SC SCH ×2 (08:09→18:22)
[2018-11-28] MEDS ORDERED: Epoetin Alfa 10,000 unit/ml Dialysis IV SCH (09:00)
[2018-11-28] MEDS: POLYETHYLENE GLYCOL 3350 17 GM/Dose PACKET PO SCH ×2 (09:28→18:19)
--- NOTE | 2018-11-28 13:37 | CP.PCM.PN ---
Subjective - Date & Time of Evaluation Date of Evaluation: 11/28/18 Time of Evaluation: 13:34 - Subjective Subjective: Seen at dialysis Feels better Still very edematous Trying to UF 4500ml today Likely discharge post HD Objective - Vital Signs/Intake and Output Vital Signs (last 24 hours): Temp Pulse Resp BP Pulse Ox 97.3 F L 71 18 170/63 H 99 11/28/18 07:00 11/28/18 07:00 11/28/18 07:00 11/28/18 08:08 11/28/18 07:00 Intake and Output: 11/28/18 11/28/18 06:59 18:59 Intake Total 480 Balance 480 - Medications Medications: Current Medications Albuterol/Ipratropium (Duoneb 3 Mg/0.5 Mg (3 Ml) Ud) 3 ml INH RQ6 [facility] Last Admin: 11/28/18 13:27 Dose: Not Given Carvedilol (Coreg) 25 mg PO Q12H [facility] Last Admin: 11/28/18 08:08 Dose: 25 mg Clonidine HCl (Catapres) 0.2 mg PO TID [facility] Last Admin: 11/28/18 13:00 Dose: Not Given Dextrose (Dextrose 50% Inj) 0 ml IV STAT PRN; Protocol PRN Reason: Hypoglycemia Protocol Dextrose (Glutose 15) 0 gm PO ONCE PRN; Protocol PRN Reason: Hypoglycemia Protocol Epoetin Huy (Procrit) 10,000 unit IV MWF [facility] Fluconazole (Diflucan) 100 mg PO DAILY [facility]; Protocol Stop: 12/17/18 12:01 Last Admin: 11/28/18 09:28 Dose: 100 mg Fluticasone/Vilanterol (Breo Ellipta 100-25 Mcg Inh) 1 puff INH RQD [facility] Last Admin: 11/28/18 07:28 Dose: Not Given Glucagon (Glucagen Diagnostic Kit) 0 mg IM STAT PRN; Protocol PRN Reason: Hypoglycemia Protocol Hydralazine HCl (Apresoline) 100 mg PO TID [facility] Last Admin: 11/28/18 13:00 Dose: Not Given Dextrose (Dextrose 5% In Water 1000 Ml) 1,000 mls @ 0 mls/hr IV .Q0M PRN; Protocol PRN Reason: Hypoglycemia Protocol Insulin Aspart (Novolog) 0 unit SC [facility]; Protocol Last Admin: 11/28/18 11:47 Dose: Not Given Insulin Aspart (Novolog Mix 70/30 (70/30 Units/Ml)) 15 units SC ACBD [facility] Last Admin: 11/28/18 08:09 Dose: 15 units Losartan Potassium (Cozaar) 50 mg PO DAILY [facility] Last Admin: 11/28/18 09:27 Dose: 50 mg Nicotine (Nicoderm Cq) 1 patch TD DAILY [facility] Last Admin: 11/28/18 09:31 Dose: 1 patch Pantoprazole Sodium (Protonix Inj) 40 mg IVP Q12 [facility] Last Admin: 11/28/18 09:31 Dose: 40 mg Polyethylene Glycol (Miralax) 17 gm PO BID [facility] Last Admin: 11/28/18 09:28 Dose: 17 gm Prednisone (Prednisone Tab) 30 mg PO DAILY [facility] Last Admin: 11/28/18 09:28 Dose: 30 mg Prednisone (Prednisone Tab) 20 mg PO DAILY [facility] Prednisone (Prednisone Tab) 10 mg PO DAILY [facility] Rosuvastatin Calcium (Crestor) 5 mg PO HS [facility] Last Admin: 11/27/18 21:23 Dose: 5 mg - Labs Labs: 11/28/18 07:27 11/28/18 07:27 PT 12.8 SECONDS (9.7-12.2) H 11/24/18 11:02 INR 1.2 11/24/18 11:02 APTT 30 SECONDS (21-34) 11/24/18 11:02 - Constitutional Appears: No Acute Distress, Chronically Ill - Head Exam Head Exam: ATRAUMATIC, NORMAL INSPECTION - Eye Exam Eye Exam: EOMI, Normal appearance - Neck Exam Neck Exam: Tenderness. absent: Normal Inspection - Respiratory Exam Respiratory Exam: Clear to Ausculation Bilateral, NORMAL BREATHING PATTERN - Cardiovascular Exam Cardiovascular Exam: REGULAR RHYTHM, +S1 - GI/Abdominal Exam GI & Abdominal Exam: Soft. absent: Tenderness - Extremities Exam Extremities Exam: Pedal Edema. absent: Tenderness - Neurological Exam Neurological Exam: Awake, CN II-XII Intact - Skin Skin Exam: Dry, Warm Assessment and Plan (1) Fluid overload Status: Acute (2) ESRD (end stage renal disease) Status: Acute (3) Anemia Status: Acute (4) HTN (hypertension), malignant Status: Acute - Assessment and Plan (Free Text) Plan: UF 4500ml Monitor BP If ok - for discharge and can be followed as outpatient
[2018-11-28 14:40] VITALS: TEMP 97.5
[2018-11-28 16:58] VITALS: BP 143/68; PULSE 69; RESP 16; O2SAT 99
--- NOTE | 2018-11-28 19:03 | PN ---
DATE: 11/28/2018 SUBJECTIVE: This is a 63-year-old male seen and examined early in rounds without any significant clinical changes. No reported active bleeding but with generalized weakness and malaise. The entire chart is reviewed including but not limited to most recent lab and radiology study results, current and the previous medication list, current and the previous medical events and the latest blood glucose level reported to be 236, BUN of 43, creatinine 3.4 with calcium 7.2, with low albumin and low total protein. Hemoglobin 8.5, hematocrit 26.1. The patient had been on hemodialysis. PHYSICAL EXAMINATION: GENERAL: A 63-year-old male, awake, alert and oriented. Denied any actual chest pain or palpitation. VITAL SIGNS: Afebrile with pulse of 72, respiratory rate 18-20, blood pressure 148/70. HEENT: Showed pale dry oral mucoid membrane. Nonicteric sclerae. LUNGS: Few scattered crepitation. Decreased air entry at bases. HEART: Positive S1 and S2. ABDOMEN: Soft with mild generalized tenderness. No mass or organomegaly. No rebound tenderness or guarding. EXTREMITIES: Without significant clubbing, cyanosis or edema. PREVENTATIVE MAINTENANCE TECHNICIAN: No reported new neurological deficits, sensory or motor. IMPRESSION: 1. Noncardiac chest pain with evidence of esophageal candidiasis, small gastric ulcer, duodenitis with duodenal ulcer by recent upper endoscopy. 2. Poorly controlled diabetes mellitus. 3. Past medical history including hypertension, congestive heart failure, end-stage renal disease, hyperlipidemia with questionable transient ischemic attack before. SUGGESTIONS: 1. Continue current management. 2. Cancer markers. 3. Antireflux measure. Further recommendation to follow. Gabby Bustillo MD
== END 2018-11-28 19:07 | disposition home or self-care (01) | DRG 190 ==
LOC: C.ER 19:35 → C.9E 21:32 → C.6T 22:27
PROVIDERS: ADMIT Family Medicine; ATTEND Family Medicine
PROC: 5A1D70Z Performance of Urinary Filtration, Intermittent, Less than 6 Hours Per Day (ICD-10-PCS; principal; 2018-11-24)
PROC: 0DB68ZX Excision of Stomach, Via Natural or Artificial Opening Endoscopic, Diagnostic (ICD-10-PCS; 2018-11-26)
PROC: 5A1D70Z Performance of Urinary Filtration, Intermittent, Less than 6 Hours Per Day (ICD-10-PCS; 2018-11-26)
PROC: 5A1D70Z Performance of Urinary Filtration, Intermittent, Less than 6 Hours Per Day (ICD-10-PCS; 2018-11-27)
PROC: 5A1D70Z Performance of Urinary Filtration, Intermittent, Less than 6 Hours Per Day (ICD-10-PCS; 2018-11-28)
DX: J44.1 Chronic obstructive pulmonary disease with (acute) exacerbation (principal); N18.6 End stage renal disease; I13.2 Hypertensive heart and chronic kidney disease with heart failure and with stage 5 chronic kidney disease, or end stage renal disease; I16.9 Hypertensive crisis, unspecified; I42.9 Cardiomyopathy, unspecified; B37.81 Candidal esophagitis; E87.1 Hypo-osmolality and hyponatremia; E11.22 Type 2 diabetes mellitus with diabetic chronic kidney disease; E11.65 Type 2 diabetes mellitus with hyperglycemia; I35.0 Nonrheumatic aortic (valve) stenosis; E87.70 Fluid overload, unspecified; I50.9 Heart failure, unspecified; K25.9 Gastric ulcer, unspecified as acute or chronic, without hemorrhage or perforation; K26.9 Duodenal ulcer, unspecified as acute or chronic, without hemorrhage or perforation; K29.00 Acute gastritis without bleeding; E83.51 Hypocalcemia; D64.9 Anemia, unspecified; K29.80 Duodenitis without bleeding; I25.10 Atherosclerotic heart disease of native coronary artery without angina pectoris; K21.9 Gastro-esophageal reflux disease without esophagitis; E78.5 Hyperlipidemia, unspecified; E78.00 Pure hypercholesterolemia, unspecified; K59.00 Constipation, unspecified; F17.210 Nicotine dependence, cigarettes, uncomplicated; Z99.2 Dependence on renal dialysis; Z79.4 Long term (current) use of insulin; Z98.41 Cataract extraction status, right eye; Z86.73 Personal history of transient ischemic attack (TIA), and cerebral infarction without residual deficits; Z79.82 Long term (current) use of aspirin; Z91.14 Patient's other noncompliance with medication regimen